=== PATIENT | male | born 1955 | race Caucasian/White ===

== ENCOUNTER 2021-01-27 12:44 | Outpatient (REF) | payer MEDICARE, SELFPAY ==
[2021-01-27 13:08] LABS: MANUAL DIFF FLAG NO
[2021-01-27 13:18] LABS: Basophils Percent Auto 0.6 % (0-2); Eosinophils Absolute Auto 0.5 X10*3/uL (0.0-0.4); Eosinophils Percent Auto 7.7 % (0-4); Hematocrit 45.9 % (42-52); Imm Gran Abs Auto 0.03 X10*3/uL (0.00-0.03); Imm Gran Pct Auto 0.4 % (0.0-0.4); Lymphocytes Absolute Auto 2.1 X10*3/uL (1.2-4.9); Mean Corpuscular HGB Conc 32.7 g/dl (31.0-36.0); Mean Corpuscular Hemoglobin 28.8 pg (27.0-33.0); Mean Corpuscular Volume 88.3 fL (80-98); Mean Platelet Volume 10.2 fL (9.4-12.4); Monocytes Absolute Auto 0.3 X10*3/uL (0.1-1.2); Monocytes Percent Auto 4.2 % (2-11); Neutrophils Absolute Auto 3.9 X10*3/uL (2.0-8.3); Neutrophils Percent Auto 57.1 % (45-73); Platelet Count 256 X10*3/uL (160-400); Red Cell Distribution Width 12.3 % (11.0-16.0); White Blood Count 6.9 X10*3/uL (4.8-10.8)
[2021-01-27 13:29] LABS: Estimated Average Glucose 137 mg/dL; Hemoglobin A1c % 6.4 %
[2021-01-27 13:39] LABS: Alanine Aminotransferase 20 U/L (0-40); Albumin Level 4.4 g/dL (3.5-5.0); Alkaline Phosphatase 89 U/L (39-117); Anion Gap 10 (12-20); Aspartate Amino Transferase 18 U/L (5-37); Bilirubin Total 0.7 mg/dL (0.0-1.0); Blood Urea Nitrogen 14 mg/dL (9-16); Calcium 9.5 mg/dL (8.4-10.2); Carbon Dioxide 30 mmol/L (22-29); Chloride 102 mmol/L (96-108); Cholesterol 172 mg/dL; Estimated Glomerular Filt Rate > 60; Glucose Fasting 215 mg/dL (60-99); HDL Cholesterol 38 mg/dL; LDL Cholesterol Calculated 91 mg/dl; Sodium 137 mmol/L (135-145); Total Protein 7.4 g/dL (6.5-8.0); Triglycerides 217 mg/dL
[2021-01-27 13:52] LABS: TSH reflex Free T4 0.69 uIU/mL (0.32-4.0)
[2021-01-27 14:13] LABS: Glucose Urine UA NEG (NEG); Leukocyte Esterase Urine NEG (NEG); Nitrite Urine NEG (NEG); Urine Blood NEG (NEG); Urine Ketones NEG (NEG); Urine Protein NEG (NEG-TRACE)
[2021-01-27 14:26] LABS: Appearance Urine CLEAR; Color Urine YELLOW
[2021-01-27 14:43] LABS: Creatinine Urine 58.32 mg/dL; Microalbumin Urine < 5.0 mg/L
== END 2021-01-27 12:45 | disposition home or self-care (01) ==
LOC: HO.LAB 12:44
PROVIDERS: PCP Internal Medicine; Visit Provider Internal Medicine
DX: E11.9 Type 2 diabetes mellitus without complications (principal); E78.00 Pure hypercholesterolemia, unspecified; I10 Essential (primary) hypertension; E66.3 Overweight
CPT/HCPCS: 36415; 80053; 80061; 81003; 82043; 83036; 84443; 85025

== ENCOUNTER 2021-12-14 07:17 | Outpatient (REF) | payer MEDICARE, SELFPAY ==
--- NOTE | ~2021-12-14 | XR_ITS ---
EXAMINATION: XR KNEE, RIGHT XR KNEE, STANDING, RIGHT AND LEFT CLINICAL INFORMATION: Pain. COMPARISON: None TECHNIQUE: AP standing view of both knees and sunrise and lateral views of the right knee. FINDINGS: There is moderate narrowing of the right medial joint space compartment with mild spurring. The medial and lateral joint space compartments of the left knee are maintained. There is spurring about the patellofemoral joint of the right knee. No right knee effusion is appreciated. There does appear to be some narrowing of the lateral patellar facet. No acute fracture or dislocation evident. XR/XR knee RT 2V IMPRESSION: Right knee degenerative joint disease involving the patellofemoral joint and medial joint space compartments.
--- NOTE | ~2021-12-14 | XR_ITS ---
EXAMINATION: XR KNEE, RIGHT XR KNEE, STANDING, RIGHT AND LEFT CLINICAL INFORMATION: Pain. COMPARISON: None TECHNIQUE: AP standing view of both knees and sunrise and lateral views of the right knee. FINDINGS: There is moderate narrowing of the right medial joint space compartment with mild spurring. The medial and lateral joint space compartments of the left knee are maintained. There is spurring about the patellofemoral joint of the right knee. No right knee effusion is appreciated. There does appear to be some narrowing of the lateral patellar facet. No acute fracture or dislocation evident. XR/XR knee standing BI IMPRESSION: Right knee degenerative joint disease involving the patellofemoral joint and medial joint space compartments.
== END 2021-12-14 07:18 | disposition home or self-care (01) ==
LOC: HO.HOSX 07:17
PROVIDERS: Visit Provider Physician Assistant
DX: M25.561 Pain in right knee (principal); M25.562 Pain in left knee; M71.21 Synovial cyst of popliteal space [Baker], right knee; D17.9 Benign lipomatous neoplasm, unspecified; I10 Essential (primary) hypertension; E11.9 Type 2 diabetes mellitus without complications; E78.00 Pure hypercholesterolemia, unspecified; E66.3 Overweight; Z68.29 Body mass index [BMI] 29.0-29.9, adult; Z87.891 Personal history of nicotine dependence
CPT/HCPCS: 73560; 73565; 99202

== ENCOUNTER 2021-12-21 07:22 | Outpatient (REF) | payer MEDICARE, SELFPAY ==
--- NOTE | ~2021-12-21 | MR_ITS ---
EXAMINATION: MR KNEE WITHOUT CONTRAST, RIGHT CLINICAL INFORMATION: Right knee pain. COMPARISON: Radiographs 12/14/2021 TECHNIQUE: MRI of the knee without contrast was performed using routine sequences on a high-field scanner. FINDINGS: MENISCI: Medial Meniscus: Ill-defined undersurface tearing of the posterior horn extending to the meniscal body where a portion of the meniscal undersurface is displaced into the meniscotibial recess. Lateral Meniscus: Intact. LIGAMENTS: Cruciate: Intact. Collateral: Intact. EXTENSOR MECHANISM: Intact. ARTICULAR CARTILAGE/BONE: Patellofemoral Compartment: Cartilage thinning and surface irregularity of the medial patellar facet and throughout the trochlea with foci of subchondral marrow edema laterally. Medial Compartment: Mild cartilage thinning and surface irregularity throughout the weightbearing aspect. Lateral Compartment: Mild cartilage thinning at the posterior-most aspect of the femoral condyle and reactive changes deep to the lateral gastrocnemius origin. JOINT FLUID AND BURSAE: Small joint effusion and Narvaez's cyst. MR/MR knee RT wo con IMPRESSION: Irregular undersurface tearing of the posterior horn of the medial meniscus. This extends to the meniscal body where a portion of the meniscal undersurface is displaced into the meniscotibial recess. Moderate patellofemoral and mild medial/lateral compartment osteoarthritis. Small joint effusion and Narvaez's cyst.
[2021-12-21 08:45] LABS: MANUAL DIFF FLAG NO
[2021-12-21 09:28] LABS: Basophils Percent Auto 0.5 % (0-2); Eosinophils Absolute Auto 0.6 X10*3/uL (0.0-0.4); Eosinophils Percent Auto 7.9 % (0-4); Hematocrit 48.4 % (42.0-52.0); Hemoglobin 15.4 g/dl (14.0-18.0); Imm Gran Abs Auto 0.05 X10*3/uL (0.00-0.03); Imm Gran Pct Auto 0.6 % (0.0-0.4); Lymphocytes Absolute Auto 2.6 X10*3/uL (1.2-4.9); Lymphocytes Percent Auto 33.2 % (20-40); Mean Corpuscular HGB Conc 31.8 g/dl (31.0-36.0); Mean Corpuscular Hemoglobin 28.1 pg (27.0-33.0); Mean Corpuscular Volume 88.3 fL (80.0-98.0); Mean Platelet Volume 10.5 fL (9.4-12.4); Monocytes Absolute Auto 0.5 X10*3/uL (0.1-1.2); Monocytes Percent Auto 6.9 % (2-11); Neutrophils Percent Auto 50.9 % (45-73); Platelet Count 265 X10*3/uL (160-400); Red Blood Count 5.48 X10*6/uL (4.60-5.80); Red Cell Distribution Width 12.3 % (11.0-16.0); White Blood Count 7.8 X10*3/uL (4.8-10.8)
[2021-12-21 10:11] LABS: Alanine Aminotransferase 24 U/L (0-40); Albumin Level 4.3 g/dL (3.5-5.0); Alkaline Phosphatase 96 U/L (39-117); Anion Gap 11 (12-20); Aspartate Amino Transferase 20 U/L (5-37); Bilirubin Total 0.8 mg/dL (0.0-1.0); Blood Urea Nitrogen 17 mg/dL (9-16); Calcium 10.2 mg/dL (8.4-10.2); Carbon Dioxide 30 mmol/L (22-29); Chloride 104 mmol/L (96-108); Cholesterol 198 mg/dL; Estimated Glomerular Filt Rate > 60; Glucose Fasting 139 mg/dL (60-99); HDL Cholesterol 35 mg/dL; LDL Cholesterol Calculated 133 mg/dl; Potassium 5.4 mmol/L (3.3-5.1); Sodium 140 mmol/L (135-145); Total Protein 7.8 g/dL (6.5-8.0); Triglycerides 153 mg/dL
[2021-12-21 10:21] LABS: Prostate Specific Antigen Scr 3.93 ng/mL (<0.05-4.0); TSH reflex Free T4 1.29 uIU/mL (0.32-4.0); Vitamin D 25-OH Total 20.8 ng/mL (>30)
== END 2021-12-21 07:23 | disposition home or self-care (01) ==
LOC: HO.MRI 07:22
PROVIDERS: PCP Internal Medicine; Visit Provider Physician Assistant
DX: Z00.00 Encounter for general adult medical examination without abnormal findings (principal); Z12.5 Encounter for screening for malignant neoplasm of prostate; M17.11 Unilateral primary osteoarthritis, right knee; D17.9 Benign lipomatous neoplasm, unspecified; E78.00 Pure hypercholesterolemia, unspecified; I10 Essential (primary) hypertension; E55.9 Vitamin D deficiency, unspecified
CPT/HCPCS: 36415; 73721; 80053; 80061; 82306; 84153; 84443; 85025

== ENCOUNTER 2021-12-22 11:27 | Outpatient (REF) | payer MEDICARE, SELFPAY ==
[2021-12-22 12:20] LABS: Appearance Urine CLEAR; Color Urine YELLOW; Glucose Urine UA NEG (NEG); Leukocyte Esterase Urine NEG (NEG); Nitrite Urine NEG (NEG); Specific Gravity - Urine <= 1.005 (1.005-1.025); Urine Blood NEG (NEG); Urine Ketones NEG (NEG); Urine Protein NEG (NEG-TRACE)
[2021-12-22 13:08] LABS: Creatinine Urine 10.33 mg/dL; Microalbumin Urine < 5.0 mg/L
== END 2021-12-22 11:28 | disposition home or self-care (01) ==
LOC: HO.LAB 11:27
PROVIDERS: PCP Internal Medicine; Visit Provider Internal Medicine
DX: Z00.00 Encounter for general adult medical examination without abnormal findings (principal); I10 Essential (primary) hypertension; E11.9 Type 2 diabetes mellitus without complications
CPT/HCPCS: 81003; 82043

== ENCOUNTER → 2022-01-23 09:53 | Outpatient (BNVA) | payer MEDICARE, SELFPAY | PROVIDERS: PCP Internal Medicine; Visit Provider Orthopaedic Surgery | DX: S83.241A Other tear of medial meniscus, current injury, right knee, initial encounter (principal); I80.291 Phlebitis and thrombophlebitis of other deep vessels of right lower extremity | CPT/HCPCS: 99202 ==

== ENCOUNTER → 2022-02-09 13:51 | Outpatient (BNVA) | payer MEDICARE, SELFPAY | PROVIDERS: PCP Internal Medicine; Visit Provider Physician Assistant | DX: Z01.818 Encounter for other preprocedural examination (principal) | CPT/HCPCS: 99202 ==

== ENCOUNTER 2022-02-20 09:03 | Emergency (ER) | payer OTHER, SELFPAY ==
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
[2022-02-20 10:28] VITALS: BP 135/76; PULSE 77; RESP 18; TEMP 36.1; O2SAT 98; BMI 28.1
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
== END 2022-02-20 14:53 | disposition home or self-care (01) ==
PROVIDERS: Emergency Provider Emergency Medicine; PCP Internal Medicine
DX: S76.012A Strain of muscle, fascia and tendon of left hip, initial encounter (principal); V43.52XA Car driver injured in collision with other type car in traffic accident, initial encounter; Y93.9 Activity, unspecified; Y92.410 Unspecified street and highway as the place of occurrence of the external cause; Y99.9 Unspecified external cause status; Z79.899 Other long term (current) drug therapy
CPT/HCPCS: 73502; 99283

== ENCOUNTER 2022-06-13 09:13 | Day surgery (SDC) | payer MEDICARE, SELFPAY ==
[2022-06-08 15:42] VITALS: BMI 28.6
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
[2022-06-13 09:39] VITALS: BP 138/74; PULSE 61; RESP 16; TEMP 36.4; O2SAT 99; BMI 25.8
[2022-06-13] MEDS: Lactated Ringers 1,000 ML 100 ML IVCONT (09:54)
--- NOTE | 2022-06-13 09:58 | MHC.SHP ---
Pre-Procedural Eval Section A Date of Service: 06/13/22 Section B Chief Complaint: screening Details of Present Illness: father with colon cancer Relevant Family History (Specify if Yes): Yes Relevant Social History: None Present Medications: see Short Stay Collaborative assessment Medical History: Significant History (Benign essential hypertension Congenital absence of left testicle Diabetes mellitus Overweight (BMI 25.0-29.9) Pure hypercholesterolemia) History of Previous Operations: Relevant previous surgery/procedure and date(s) (rotator cuff surgery) Allergies: Allergies Allergy/AdvReac Type Severity Reaction Status Date / Time No Known Allergies Allergy Verified 04/04/22 14:34 Review of Systems Sugical H&P ROS: Negative: Constitution, Cardiovascular, Respiratory, Neurological, Psychiatric, Hem-Onc, Allergic/Immunologic, Gastrointestinal, Genitourinary, Musculoskeletal, Integumentary, Endocrine and Eyes/Ears/Nose/Throat Exam Surgical H&P Exam: Normal: HEENT, Normal: Heart, Normal: Lungs, Normal: Extremities, Normal: Abdomen, Normal: Skin and Normal: Neurological Plan Diagnosis/Plan: Unchanged I have reviewed the history and physical and performed a pertinent physical examination on my patient. No changes have occurred unless specified.
[2022-06-13 10:02] LABS: Glucose, Whole Blood 127 mg/dL (60-115)
--- NOTE | 2022-06-13 11:03 | P.OP_ITS ---
Operative Note Operative Note Date of Service: 06/13/22 Narrative: Operative Information Procedure Description: Colonoscopy Indication: screening Anesthesia: MAC COLONOSCOPY Instrument: Olympus variable stiffness pediatric scope 190L Colonoscopy Monitoring: Vital signs and clinical assessment, continuous EKG monitoring, Pulse oximetry, Carbon Dioxide monitoring and blood pressure monitoring were done throughout the procedure. Colon withdrawal time was 9 minutes. Procedure: The patient was placed in the left lateral decubitis position and pre-procedure medications were administered. After a digital rectal examination of the ano-rectum, the video colonoscope was inserted into the rectum and advanced through the colon to the cecum/TI. The colonoscope was slowly withdrawn in a retrograde panoramic fashion and the colon mucosa was carefully examined including a retroflexed view of the rectum. Findings and interventions are described below. Procedure Difficulty: easy Findings: Terminal Ileum-normal Cecum: x1 sessile polyp type lesion 5-6 mm removed with cold forceps Ascending Colon: normal Transverse Colon -normal Descending Colon:normal Sigmoid Colon: normal Rectum: Retroflexion with medium sized internal hemorrhoids, grade I Anorectum - normal Colon preparation: [place] Bowel Preparation Scale Right colon; 2 Transverse colon: 3 Left colon; 3 (0 = Unprepared colon segment with mucosa not seen due to solid stool that cannot be cleared. 1 = Portion of mucosa of the colon segment seen, but other areas of the colon segment not well seen due to staining, residual stool and/or opaque liquid. 2 = Minor amount of residual staining, small fragments of stool and/or opaque liquid, but mucosa of colon segment seen well. 3 = Entire mucosa of colon segment seen well with no residual staining, small fragments of stool or opaque liquid) Impression and Post Procedure Diagnosis: internal hemorrhoids polyp Plan: High fiber diet leaflet Avoid straining at stool, epsom salts and sitz bath, anusol supps or cream Repeat Colonoscopy in 5 years due to FH of CRC or earlier if clinically indicated Above findings were reviewed with the patient and relevant handouts were provided if indicated.
[2022-06-13 11:30] VITALS: BP 126/81; PULSE 71; RESP 16; TEMP 36.4; O2SAT 96
[2022-06-13 11:46] VITALS: BP 135/75; PULSE 66; RESP 16; TEMP 36.4; O2SAT 97
== END 2022-06-13 12:08 | disposition home or self-care (01) ==
PROVIDERS: PCP Internal Medicine; Visit Provider Internal Medicine Gastroenterology
PROC: 0DJD8ZZ Inspection of Lower Intestinal Tract, Via Natural or Artificial Opening Endoscopic (ICD-10-PCS; CPT 45378; principal; 2022-06-13 10:50)
DX: Z12.11 Encounter for screening for malignant neoplasm of colon (principal); K63.5 Polyp of colon; K64.0 First degree hemorrhoids; I10 Essential (primary) hypertension; E78.00 Pure hypercholesterolemia, unspecified; E11.9 Type 2 diabetes mellitus without complications; Z79.84 Long term (current) use of oral hypoglycemic drugs; Z79.899 Other long term (current) drug therapy; Z87.891 Personal history of nicotine dependence; E66.3 Overweight; Z68.28 Body mass index [BMI] 28.0-28.9, adult
CPT/HCPCS: 45380; 82947; 88305

== ENCOUNTER 2022-06-14 09:36 | Outpatient (REF) | payer MEDICARE, SELFPAY ==
[2022-06-14 10:28] LABS: Appearance Urine Clear; Color Urine Yellow; Glucose Urine UA Negative (Negative); Leukocyte Esterase Urine Negative (Negative); Nitrite Urine Negative (Negative); PH 5.5 (5.0-9.0); Urine Blood Negative (Negative); Urine Ketones Negative (Negative); Urine Protein Negative (Neg-Trace)
[2022-06-14 11:00] LABS: Creatinine Urine 45.39 mg/dL; Microalbumin Urine < 5.0 mg/L
[2022-06-14 11:01] LABS: Alanine Aminotransferase 18 U/L (0-40); Albumin Level 4.1 g/dL (3.5-5.0); Alkaline Phosphatase 90 U/L (39-117); Anion Gap 14 (12-20); Aspartate Amino Transferase 16 U/L (5-37); Bilirubin Total 0.5 mg/dL (0.0-1.0); Blood Urea Nitrogen 13 mg/dL (9-16); Calcium 9.3 mg/dL (8.4-10.2); Carbon Dioxide 27 mmol/L (22-29); Chloride 102 mmol/L (96-108); Cholesterol 180 mg/dL; Estimated Glomerular Filt Rate > 60; Glucose Fasting 189 mg/dL (60-99); HDL Cholesterol 36 mg/dL; LDL Cholesterol Calculated 124 mg/dl; Potassium 4.6 mmol/L (3.3-5.1); Sodium 138 mmol/L (135-145); Triglycerides 101 mg/dL
[2022-06-14 11:22] LABS: Estimated Average Glucose 140 mg/dL; Hemoglobin A1c % 6.5 %
== END 2022-06-14 09:37 | disposition home or self-care (01) ==
LOC: HO.LAB 09:36
PROVIDERS: PCP Internal Medicine; Visit Provider Internal Medicine
DX: I10 Essential (primary) hypertension (principal); E11.9 Type 2 diabetes mellitus without complications; E78.00 Pure hypercholesterolemia, unspecified
CPT/HCPCS: 36415; 80053; 80061; 81003; 82043; 83036

== ENCOUNTER 2022-06-29 09:13 | Outpatient (REF) | payer MEDICARE, SELFPAY ==
--- NOTE | ~2022-06-29 | XR_ITS ---
EXAMINATION: XR KNEE, LEFT CLINICAL INFORMATION: Pain COMPARISON: Previous x-ray December 2021 TECHNIQUE: 3 views of the left knee. FINDINGS: Bone alignment is normal. No fracture or dislocation. Normal femoral tibial joints. Small osteophytes at the patellofemoral joint. No joint effusion. XR/XR knee LT 3V IMPRESSION: Mild degenerative changes at the patellofemoral joint.
== END 2022-06-29 09:14 | disposition home or self-care (01) ==
LOC: HO.XRAY 09:13
PROVIDERS: PCP Internal Medicine; Visit Provider Internal Medicine
DX: M25.562 Pain in left knee (principal); K64.9 Unspecified hemorrhoids; Z80.0 Family history of malignant neoplasm of digestive organs
CPT/HCPCS: 73562; 99212

== ENCOUNTER 2022-11-29 11:23 | Outpatient (REF) | payer MEDICARE, SELFPAY ==
[2022-11-29 12:06] LABS: Influenza A PCR NEGATIVE (Negative); Influenza B PCR NEGATIVE (Negative); Resp Syncy Virus RNA Qual PCR NEGATIVE (Negative); SARS COV2 PCR INHOUSE NEGATIVE (Negative)
== END 2022-11-29 11:24 | disposition home or self-care (01) ==
LOC: HO.LNP 11:23
PROVIDERS: Visit Provider Nurse Practitioner Family
DX: R09.89 Other specified symptoms and signs involving the circulatory and respiratory systems (principal); Z20.822 Contact with and (suspected) exposure to COVID-19
CPT/HCPCS: 0241U

== ENCOUNTER 2023-04-05 10:14 | Outpatient (AMB) | payer MEDICARE, SELFPAY ==
[2023-04-05 10:16] VITALS: BP 138/60; PULSE 57; O2SAT 99; BMI 27.1
--- NOTE | 2023-04-05 10:16 | A.OFFPC_ITS ---
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 Required: No Accompanied by: Self / Same As Patient Allergies No Known Allergies Allergy (Verified 04/05/23 10:58) Medication List - Last Reconciled 04/05/23 by John Dumont MD atorvastatin 20 mg PO DAILY 90 days bisacodyl (Dulcolax (bisacodyl)) 10 mg (2 x 5 mg) PO ONCE 1 day blood sugar diagnostic (OneTouch Ultra Test strips) USE TO CHECK BLOOD SUGAR THREE TIMES DAILY lancets As directed lancets ONE TOUCH ULTRA TEST STRIPS - use as directed - Dx: E11.9 -- Diabetes lisinopril 10 mg PO DAILY 90 days metformin ER 500 mg PO DAILY 90 days Tobacco use date assessed: 04/05/23 Fall risk assessment: 1 Fall in past year Last assessed Fall Risk: 04/05/23 Dental Screening Dental Screen Date: 04/05/23 Did you have a dental visit in the last 12 months?: Yes Did you have a dental problem in the last 6 months where you did not have access to dental care?: No Was dental information given to patient?: Patient has dentist [facility] HPI Details Patient comes in today for his annual physical examination States that he feels okay He denies any headaches or dizziness Denies any chest pains, no SOB No nausea/vomiting, no abdominal pain No change in bowel habits noted Denies any acute urinary symptoms Needs his glucometer test strips Rx refilled He is currently up-to-date with his colon cancer screening and is not due for repeat until 2026 He will also need to update his tetanus booster today - last received Tdap in 12/2012 [facility] Medical History Benign essential hypertension 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 Diabetes mellitus Overweight (BMI 25.0-29.9) Pure hypercholesterolemia Surgical History History of colonoscopy (~06/13/22) Hx of rotator cuff surgery Family History Father Prostate cancer Colon cancer Mother Alzheimer's dementia Social History Housing: House Alcohol intake: current Alcohol intake frequency: a few times a week Alcohol type: beer Patient Tobacco Use Status: Former Tobacco user Tobacco use type: Cigarette e-Cigarette/Vaping Use: Never Used Second Hand Smoke Exposure: Yes service: Yes Current occupational status: retired Cognitive needs: No Hearing needs: Yes Vision needs: Yes Questionnaire PHQ-9 Over the last 2 weeks, how often have you been bothered by any of the following problems? 1. Little interest or pleasure in doing things: not at all 2. Feeling down, depressed, or hopeless: not at all 3. Trouble falling or staying asleep, or sleeping too much: not at all 4. Feeling tired or having little energy: not at all 5. Poor appetite or overeating: not at all 6. Feeling bad about yourself - or that you are a failure or have let yourself or your family down: not at all 7. Trouble concentrating on things, such as reading the newspaper or watching television: not at all 8. Moving or speaking so slowly that other people could have noticed. Or the opposite - being so fidgety or restless that you have been moving around a lot more than usual: not at all 9. Thoughts that you would be better off or of hurting yourself in some way: not at all Total score: 0 Depression Screening Interpretation: Negative [id number] - PHQ-9 Billing: Yes Source: Developed by Drs. Tobin Diaz, Carleen Burton, Rock Toro and colleagues, with an educational blas from [employer]. Thrive Questionnaire Date Thrive assessed: 04/05/23 I am a: Patient What is your living situation today?: I have a steady place to live Within the past 12 months, did the food you bought not last and you didn't have the money to get more?: Never true Within the past 12 months, did you worry whether your food would run out before you got money to buy more?: Never true Do you have trouble paying for medicines?: No Do you have trouble getting transportation to medical appointments?: No Do you have trouble paying your heating and electricity bill?: No Do you have trouble taking care of your child, family member or friend?: No Do you have trouble with day-to-day activities such as bathing, preparing meals, shopping, managing finances, etc.?: No Are you currently unemployed and looking for a job?: No Are you interested in more education?: No Please select the resources that you would like help with: None Currently or been in a relationship where the following occur: no concerns reported AUDIT C Alcohol Use Questionnaire (AUDIT-C) 1. How often do you have a drink containing alcohol?: 2-3 times a week 2. How many drinks containing alcohol do you have on a typical day when you are drinking?: 1 or 2 3. How often do you have six or more drinks on one occasion?: Never Total Score: 3 Score Reviewed/Action Taken: Yes STACY-7 AMB Questionnaire STACY-7 Date STACY - 7 assessed: 04/05/23 Feeling nervous, anxious, or on edge: 0 = Not at all Not being able to stop or control worryin = Not at all Worrying too much about different things: 0 = Not at all Trouble relaxin = Not at all Being so restless that it is hard to sit still: 0 = Not at all Becoming easily annoyed or irritable: 0 = Not at all Feeling afraid as if something awful might happen: 0 = Not at all Total STACY-7 score (0-4 normal; 5-9 mild; 10-14 moderate; 15-21 severe): 0 Source: Developed by Drs. Tobin Diaz, Carleen Burton, Rock Toro and colleagues, with an educational blas from [employer]. Review of Systems Const Denies chills, Denies difficulty sleeping, Denies fatigue, Denies fever(s), Denies headache(s), Denies malaise and Denies weakness Eyes Denies blurry vision, Denies change in vision, Denies irritation and Denies itchy eyes ENT Denies dysphagia, Denies dizziness, Denies otalgia, Denies headache(s), Denies nasal congestion, Denies neck pain, Denies odynophagia and Denies sore throat Card Denies chest pain, Denies rapid heart rate, Denies irregular heart rhythm, Denies palpitations and Denies dyspnea Resp Denies chest congestion, Denies cough, Denies dyspnea and Denies wheezing GI Denies abdominal pain, Denies bloating, Denies constipation, Denies dysphagia, Denies heartburn, Denies diarrhea, Denies nausea, Denies odynophagia and Denies vomiting Denies hematuria, Denies difficulty urinating, Denies dysuria, Denies urinary frequency and Denies urinary urgency Musc Denies back pain, Denies arthralgias, Denies joint swelling, Denies muscle weakness and Denies neck pain Skin/Breast Denies change in pigmentation, Denies lesions, Denies rash and Denies unusual bruising Neuro Denies dizziness, Denies headache(s), Denies paresthesias and Denies weakness Endo Denies fatigue and Denies palpitations Aller/Immun Denies itchy eyes and Denies wheezing Physical exam (Primary Care) Vital Signs: Last Vital Signs Pulse 57 04/05/23 10:16 BP 138/60 04/05/23 10:16 Pulse Ox 99 04/05/23 10:16 Oxygen Delivery Method Room Air 04/05/23 10:16 BMI result Body Mass Index 27.1 Tobacco/Smoking Status: Tobacco use Status Tobacco use date assessed 04/05/23 04/05/23 10:23 Patient Tobacco Use Status Former Tobacco user 04/05/23 10:23 Tobacco use type Cigarette 04/05/23 10:23 e-Cigarette/Vaping Use Never Used 04/05/23 10:23 PHQ-9: PHQ-9 Score PHQ-9: Total score 0 04/05/23 11:03 Depression Screening Interpretation: Negative Thrive Assessment: Date of Thrive Assessment Date Thrive assessed 04/05/23 04/05/23 10:23 Currently or been in a relationship where the following occur: no concerns reported Const General: no acute distress, alert and awake Orientation/consciousness: patient oriented x3 HENMT Head: Yes normocephalic and Yes atraumatic Ears: external ears normal, TM's normal bilaterally and EAC's normal General nose exam: No nasal discharge present Face and sinus: Yes normal facial exam and Yes sinuses nontender Teeth and gingiva: dentition normal Throat: Yes posterior oropharynx normal and Yes tonsils normal (no TP congestion) Eyes Eyelids: Yes eyelids normal Conjunctivae: conjunctivae normal Pupils: Equal, round and reactive pupils present EOM: EOMs intact bilaterally Neck Neck: Yes no lymphadenopathy and Yes supple Thyroid: Thyroid normal Resp Auscultation: clear to auscultation bilaterally, no rales and no wheezes Cardio Rate: regular rate Rhythm: regular rhythm Heart sounds: no murmurs GI Palpation (GI): Soft to palpation, nontender and No hepatosplenomegaly present Auscultation: normal bowel sounds General: Yes no CVA tenderness Back/Spine/Pelvis Back: no CVA tenderness Thoracic/Lumbar Spine: thoracic and lumbar spine normal to inspection Skin Lesions: no lesions Rashes: no rashes Neuro General: patient oriented x3, moves all extremities, no focal motor deficits and CN's II-XI intact bilaterally Cranial nerves: Yes Equal, round and reactive pupils present Cognition (Neuro): normal cognition Gait exam (Neuro): Normal gait present Extrem General: Yes no clubbing, cyanosis or edema Immunizations tetanus-diphtheria toxoids-Td Performing Provider: John Dumont MD Administered by: Sabi Callaway RN on 04/05/23 11:38 Dose Route Admin Location Lot Number Expiration Date NDC Tool Honing Machine Set Up Operator 0.5 mL IM Left Deltoid [id number] 01/17/24 [id number] [employer] VIS Given Date VIS Provided VIS Publication Date 04/05/23 Single Vaccine 21 Eligibility Eligibility Date Funding Source Not [facility] Eligible 04/05/23 State funds Assessment and Plan Assessment & Plan (1) Annual physical exam: Code(s): Z00.00 - Encounter for general adult medical examination without abnormal findings Plan: Check labs He is up-to-date with his screening colonoscopy (done on 06/13/2022); is due for repeat colonoscopy in 2026 He will get his tetanus booster (Td) updated today and is reminded to check with his local pharmacist about getting his shingles vaccine (Shingrix), RSV vaccine, updated COVID booster and also get his high dose flu vaccine beginning sometime next month (2) Benign essential hypertension: Code(s): I10 - Essential (primary) hypertension Plan: Reinforced low sodium diet - goal is systolic BP of 120 mm or less Continue Lisinopril 10 mg QD (3) Diabetes mellitus: Code(s): E11.9 - Type 2 diabetes mellitus without complications Qualifiers: Diabetes mellitus type: type 2 Diabetes mellitus terminal clerk insulin use: without fpc use Diabetes mellitus complication status: without complication Qualified Code(s): E11.9 - Type 2 diabetes mellitus without complications Plan: Will recheck his FBS and HgbA1c RACH for follow up HgbA1c was at 6.5% on his labs done back in June 2022 - goal is at least <7.0% Reinforced diabetic diet Continue Metformin ER 500 mg QD (4) Pure hypercholesterolemia: Code(s): E78.00 - Pure hypercholesterolemia, unspecified Plan: Will recheck his cholesterol levels RACH for follow up Reinforced low cholesterol diet Continue Atorvastatin 20 mg QD Will recheck his labs again in 6 months for follow up (5) Left knee pain: Code(s): M25.562 - Pain in left knee Qualifiers: Chronicity: unspecified Qualified Code(s): M25.562 - Pain in left knee Plan: Resolved - states that his knees have not been bothering him for the past few months now (6) Constipation: Code(s): K59.00 - Constipation, unspecified Qualifiers: Constipation type: unspecified constipation type Qualified Code(s): K59.00 - Constipation, unspecified Plan: Encouraged again increased oral fluid intake and dietary fiber May continue taking OTC stool softeners as needed (7) Overweight (BMI 25.0-29.9): Code(s): E66.3 - Overweight Plan: Reinforced diet/exercise as tolerated/lose weight Plan Follow up in 6 months Orders: Orders Complete Blood Count Auto Diff Today I10 - Essential (primary) hypertension, Z00.00 - Encounter for general adult medical examination without abnormal findings Comprehensive [place]. Panel Fast Today E78.00 - Pure hypercholesterolemia, unspecified, Z00.00 - Encounter for general adult medical examination without abnormal findings Lipid Panel Today E78.00 - Pure hypercholesterolemia, unspecified, Z00.00 - Encounter for general adult medical examination without abnormal findings TSH reflex Free T4 Today E78.00 - Pure hypercholesterolemia, unspecified, Z00.00 - Encounter for general adult medical examination without abnormal findings Microalbumin, Random (w Creat) Today E11.9 - Type 2 diabetes mellitus without complications, Z00.00 - Encounter for general adult medical examination without abnormal findings Hemoglobin A1c Today E11.9 - Type 2 diabetes mellitus without complications, Z00.00 - Encounter for general adult medical examination without abnormal findings UA CC w/rflx Micro + Cult Today R30.0 - Dysuria, Z00.00 - Encounter for general adult medical examination without abnormal findings Prostate Specific Antigen Today N40.0 - Benign prostatic hyperplasia without lower urinary tract symptoms, Z00.00 - Encounter for general adult medical examination without abnormal findings Vitamin D 25-OH Total Today E55.9 - Vitamin D deficiency, unspecified, Z00.00 - Encounter for general adult medical examination without abnormal findings Comprehensive [place]. Panel Fast 6 Months E78.00 - Pure hypercholesterolemia, unspecified Lipid Panel 6 Months E78.00 - Pure hypercholesterolemia, unspecified Hemoglobin A1c 6 Months E11.9 - Type 2 diabetes mellitus without complications Td State Immunization Today Z23 - Encounter for immunization Medications: Changed From blood sugar diagnostic (OneTouch Ultra Test strips) USE TO CHECK BLOOD SUGAR THREE TIMES DAILY 100 strips 0RF E11.9 - Type 2 diabetes mellitus without complications To blood sugar diagnostic (OneTouch Ultra Test strips) USE TO CHECK BLOOD SUGAR ONCE DAILY 100 strips 12RF E11.9 - Type 2 diabetes mellitus without complications Coding Level of Care Code Est Pt Prev Care >65y(55329) Diagnoses Annual physical exam Z00.00 Benign essential hypertension I10 Diabetes mellitus E11.9 Diabetes mellitus type: type 2 Diabetes mellitus fpc insulin use: without terminal clerk use Diabetes mellitus complication status: without complication Pure hypercholesterolemia E78.00 Left knee pain M25.562 Chronicity: unspecified Constipation K59.00 Constipation type: unspecified constipation type Overweight (BMI 25.0-29.9) E66.3
== END 2023-04-05 11:40 | disposition home or self-care (01) ==
PROVIDERS: PCP Internal Medicine; Visit Provider Internal Medicine
DX: Z00.00 Encounter for general adult medical examination without abnormal findings (principal); I10 Essential (primary) hypertension; E11.9 Type 2 diabetes mellitus without complications; Z23 Encounter for immunization; E78.00 Pure hypercholesterolemia, unspecified; M25.562 Pain in left knee; K59.00 Constipation, unspecified; E66.3 Overweight
CPT/HCPCS: 90471; 90714; 99397

== ENCOUNTER 2023-06-25 09:19 | Outpatient (REF) | payer MEDICARE, SELFPAY ==
[2023-06-25 09:40] LABS: MANUAL DIFF FLAG NO
[2023-06-25 10:22] LABS: Basophils Absolute Auto 0.1 X10*3/uL (0.0-0.2); Basophils Percent Auto 0.6 % (0-2); Eosinophils Absolute Auto 0.5 X10*3/uL (0.0-0.4); Eosinophils Percent Auto 5.8 % (0-4); Hematocrit 46.6 % (42.0-52.0); Hemoglobin 14.7 g/dl (14.0-18.0); Imm Gran Abs Auto 0.05 X10*3/uL (0.00-0.03); Imm Gran Pct Auto 0.6 % (0.0-0.4); Lymphocytes Absolute Auto 2.3 X10*3/uL (1.2-4.9); Lymphocytes Percent Auto 26.1 % (20-40); Mean Corpuscular HGB Conc 31.5 g/dl (31.0-36.0); Mean Corpuscular Hemoglobin 27.9 pg (27.0-33.0); Mean Corpuscular Volume 88.4 fL (80.0-98.0); Mean Platelet Volume 10.1 fL (9.4-12.4); Monocytes Absolute Auto 0.6 X10*3/uL (0.1-1.2); Monocytes Percent Auto 6.9 % (2-11); Neutrophils Absolute Auto 5.3 x10*3/uL (2.0-8.3); Platelet Count 273 X10*3/uL (160-400); Red Blood Count 5.27 X10*6/uL (4.60-5.80); Red Cell Distribution Width 11.9 % (11.0-16.0); White Blood Count 8.8 X10*3/uL (4.8-10.8)
[2023-06-25 10:35] LABS: Estimated Average Glucose 177 mg/dL; Hemoglobin A1c % 7.8 % (<6.0)
[2023-06-25 11:05] LABS: Alanine Aminotransferase 11 U/L (0-40); Albumin Level 4.1 g/dL (3.5-5.0); Alkaline Phosphatase 109 U/L (39-117); Anion Gap 10 (12-20); Aspartate Amino Transferase 13 U/L (5-37); Bilirubin Total 0.5 mg/dL (0.0-1.0); Blood Urea Nitrogen 11 mg/dL (9-16); Calcium 9.6 mg/dL (8.4-10.2); Carbon Dioxide 30 mmol/L (22-29); Chloride 101 mmol/L (96-108); Cholesterol 195 mg/dL (<200); Estimated Glomerular Filt Rate > 60; Glucose Fasting 225 mg/dL (60-99); HDL Cholesterol 31 mg/dL (>40); LDL Cholesterol Calculated 118 mg/dL (<100); Potassium 4.6 mmol/L (3.3-5.1); Sodium 136 mmol/L (135-145); Total Protein 7.7 g/dL (6.5-8.0); Triglycerides 232 mg/dL (<150)
[2023-06-25 11:08] LABS: Prostate Specific Antigen 5.31 ng/mL (<0.05-4.0)
[2023-06-25 11:10] LABS: Creatinine Urine 96.66 mg/dL; Microalbum/Creatinine Ratio Ur 7.2 ug/mg cr (<30)
[2023-06-25 11:11] LABS: TSH reflex Free T4 1.29 uIU/mL (0.32-4.0); Vitamin D 25-OH Total 25.7 ng/mL (>30)
[2023-06-25 11:12] LABS: Appearance Urine Clear; Color Urine Yellow; Glucose Urine UA 250 mg/dL (Negative); Leukocyte Esterase Urine Negative (Negative); Nitrite Urine Negative (Negative); Urine Blood Negative (Negative); Urine Ketones Negative (Negative); Urine Protein Negative (Neg-Trace)
== END 2023-06-25 09:20 | disposition home or self-care (01) ==
LOC: HO.LAB 09:19
PROVIDERS: PCP Internal Medicine; Visit Provider Internal Medicine
DX: Z00.00 Encounter for general adult medical examination without abnormal findings (principal); I10 Essential (primary) hypertension; E78.00 Pure hypercholesterolemia, unspecified; E11.9 Type 2 diabetes mellitus without complications; N40.0 Benign prostatic hyperplasia without lower urinary tract symptoms; E55.9 Vitamin D deficiency, unspecified; R30.0 Dysuria; Z12.5 Encounter for screening for malignant neoplasm of prostate
CPT/HCPCS: 36415; 80053; 80061; 81003; 82043; 82306; 82570; 83036; 84153; 84443; 85025

== ENCOUNTER 2023-08-08 09:11 | Outpatient (AMB) | payer MEDICARE, SELFPAY ==
--- NOTE | 2023-08-08 10:00 | MHC.OFFWIV ---
Intake Vital Signs 08/08/23 10:01 Height 5 ft 7 in BP 118/62 Blood Pressure Location Rt brachial Position Sitting Pulse 62 Pulse Source Pulse Oximeter Temp 98.4 F Temp Source Temporal Artery Scan Pulse Oximetry (%) 98 Oxygen Delivery Method Room Air Intake Visit Reasons: EST/fever/chills/[id number] Intake Note: pt is here for co fever, chills, body aches x2 weeks Patient Tobacco Use Status: Former Tobacco user Allergies No Known Allergies Allergy (Verified 08/08/23 10:18) Medication List - Last Reconciled 08/08/23 by Lay Wilson, MOBILE APPLICATION TESTER- atorvastatin 20 mg PO DAILY 90 days blood sugar diagnostic (OneTouch Ultra Test strips) USE TO CHECK BLOOD SUGAR ONCE DAILY lancets As directed lancets ONE TOUCH ULTRA TEST STRIPS - use as directed - Dx: E11.9 -- Diabetes lisinopril 10 mg PO DAILY 90 days metformin ER 500 mg PO DAILY 90 days Do you need a note to return to daycare/school/sports/work: Yes HPI HPI Comments History of Present Illness Details here today w c/o sinus pain and pressure that developed 4-5 days ago. when lying flat at night, has cough w/ sputum. stated > 2 weeks ago had flu like sx, treated w/ otc meds and nasal sprays. all sx resolved and then the sinus sx and cough returned. denies fever, chills, chest pain. 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 Diabetes mellitus Overweight (BMI 25.0-29.9) Pure hypercholesterolemia Surgical History History of colonoscopy (~06/13/22) Hx of rotator cuff surgery Family History Father Prostate cancer Colon cancer Mother Alzheimer's dementia Social History Housing: House Alcohol intake: current Alcohol intake frequency: a few times a week Alcohol type: beer Patient Tobacco Use Status: Former Tobacco user Tobacco use type: Cigarette e-Cigarette/Vaping Use: Never Used Second Hand Smoke Exposure: Yes service: Yes Current occupational status: retired Cognitive needs: No Hearing needs: Yes Vision needs: Yes Review of Systems Const All systems reviewed & are unremarkable except as noted in HPI and below Physical Exam Vital Signs: Last Vital Signs Temp 98.4 F 08/08/23 10:01 Pulse 62 08/08/23 10:01 BP 118/62 08/08/23 10:01 Pulse Ox 98 08/08/23 10:01 Oxygen Delivery Method Room Air 08/08/23 10:01 Const Other: awake alert nad conjunctiva clear bilat TM intact, clear on L, + mucoid effusion on R Nares w mucoid discharge, turbinates edematous and pale bilat, frontal and max sinus tenderness w palp bilat Pharynx + erythema, no exudate, no ac adenopathy RRR LS CTAB Assessment & Plan Assessment & Plan (1) Acute sinusitis: Code(s): J01.90 - Acute sinusitis, unspecified Qualifiers: Sinusitis location: pansinusitis Recurrence: non-recurrent Qualified Code(s): J01.40 - Acute pansinusitis, unspecified Plan: . Medications: New amoxicillin-pot clavulanate 875-125 mg 1 tab PO BID 7 days 14 tabs 0RF Patient Instructions: take meds w/ food. avoid nasal sprays and decongestants, nasal saline is ok. Coding Level of Care Code Est Pt Level 3 (25900) Diagnoses Acute non-recurrent pansinusitis J01.40 Sinusitis location: pansinusitis Recurrence: non-recurrent
[2023-08-08 10:01] VITALS: BP 118/62; PULSE 62; TEMP 36.9; O2SAT 98
== END 2023-08-08 10:36 | disposition home or self-care (01) ==
PROVIDERS: PCP Internal Medicine; Visit Provider Nurse Practitioner Family
DX: J01.40 Acute pansinusitis, unspecified (principal)
CPT/HCPCS: 99213

== ENCOUNTER 2023-10-01 09:44 | Outpatient (AMB) | payer MEDICARE, SELFPAY ==
[2023-10-01 09:48] VITALS: BP 110/72; PULSE 72; O2SAT 98; BMI 25.5
--- NOTE | 2023-10-01 09:48 | A.OFFPC_ITS ---
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: No Accompanied by: Self / Same As Patient Allergies No Known Allergies Allergy (Verified 10/01/23 10:11) Medication List - Last Reconciled 10/01/23 by John Dumont MD atorvastatin 20 mg PO DAILY 90 days blood sugar diagnostic (OneTouch Ultra Test strips) USE TO CHECK BLOOD SUGAR ONCE DAILY lancets As directed lancets ONE TOUCH ULTRA TEST STRIPS - use as directed - Dx: E11.9 -- Diabetes lisinopril 10 mg PO DAILY 90 days metformin ER 500 mg PO DAILY 90 days Tobacco use date assessed: 10/01/23 Fall risk assessment: No Falls in past year Last assessed Fall Risk: 10/01/23 Dental Screening Dental Screen Date: 10/01/23 Did you have a dental visit in the last 12 months?: Yes Did you have a dental problem in the last 6 months where you did not have access to dental care?: No Was dental information given to patient?: Patient has dentist HPI HTN, hyperlipidemia, DM HPI Details Patient comes in today for his follow up visit States that he feels okay He denies any headaches or dizziness Denies any chest pains, no SOB No nausea/vomiting, no abdominal pain No change in bowel habits noted Relates that he has been experiencing urinary frequency and hesitancy and nocturia as well for a while now - recalls that he has a history of prostate enlargement and had some unrecalled office procedure done by Dr. Hardwick a few years ago (2016 or 2017) Adds that he has been experiencing some legs cramps lately, especially at night Would also like to know how he did on his labs done back in June 2023 [facility] Medical History (Updated 10/01/23 @ 10:57 by John Dumont MD) Benign prostatic hyperplasia with lower urinary tract symptoms Degenerative joint disease of right knee Overweight (BMI 25.0-29.9) Diabetes mellitus Pure hypercholesterolemia Benign essential hypertension Congenital absence of left testicle Surgical History History of colonoscopy (~06/13/22) Hx of rotator cuff surgery Family History Father Prostate cancer Colon cancer Mother Alzheimer's dementia Social History Housing: House Alcohol intake: current Alcohol intake frequency: a few times a week Alcohol type: beer Patient Tobacco Use Status: Former Tobacco user Tobacco use type: Cigarette e-Cigarette/Vaping Use: Never Used Second Hand Smoke Exposure: Yes service: Yes Current occupational status: retired Cognitive needs: No Hearing needs: Yes Vision needs: Yes Questionnaire PHQ-9 Over the last 2 weeks, how often have you been bothered by any of the following problems? 1. Little interest or pleasure in doing things: not at all 2. Feeling down, depressed, or hopeless: not at all 3. Trouble falling or staying asleep, or sleeping too much: not at all 4. Feeling tired or having little energy: not at all 5. Poor appetite or overeating: not at all 6. Feeling bad about yourself - or that you are a failure or have let yourself or your family down: not at all 7. Trouble concentrating on things, such as reading the newspaper or watching television: not at all 8. Moving or speaking so slowly that other people could have noticed. Or the opposite - being so fidgety or restless that you have been moving around a lot more than usual: not at all 9. Thoughts that you would be better off or of hurting yourself in some way: not at all Total score: 0 Depression Screening Interpretation: Negative Depression Screening Done: Yes 12000 - PHQ-9 Billing: Yes Source: Developed by Drs. Tobin Diaz, Carleen Burton, Rock Toro and colleagues, with an educational blas from [employer]. Thrive Questionnaire Date Thrive assessed: 10/01/23 I am a: Patient What is your living situation today?: I have a steady place to live Within the past 12 months, did the food you bought not last and you didn't have the money to get more?: Never true Within the past 12 months, did you worry whether your food would run out before you got money to buy more?: Never true Do you have trouble paying for medicines?: No Do you have trouble getting transportation to medical appointments?: No Do you have trouble paying your heating and electricity bill?: No Do you have trouble taking care of your child, family member or friend?: No Do you have trouble with day-to-day activities such as bathing, preparing meals, shopping, managing finances, etc.?: No Are you currently unemployed and looking for a job?: No Are you interested in more education?: No Please select the resources that you would like help with: None Currently or been in a relationship where the following occur: no concerns reported THRIVE Score: 0 AUDIT C Alcohol Use Questionnaire (AUDIT-C) 1. How often do you have a drink containing alcohol?: 2-3 times a week 2. How many drinks containing alcohol do you have on a typical day when you are drinking?: 1 or 2 3. How often do you have six or more drinks on one occasion?: Never Total Score: 3 Score Reviewed/Action Taken: Yes STACY-7 AMB Questionnaire STACY-7 Date STACY - 7 assessed: 10/01/23 Feeling nervous, anxious, or on edge: 0 = Not at all Not being able to stop or control worryin = Not at all Worrying too much about different things: 0 = Not at all Trouble relaxin = Not at all Being so restless that it is hard to sit still: 0 = Not at all Becoming easily annoyed or irritable: 0 = Not at all Feeling afraid as if something awful might happen: 0 = Not at all Total STACY-7 score (0-4 normal; 5-9 mild; 10-14 moderate; 15-21 severe): 0 Source: Developed by Drs. Toibn Diaz, Carleen Burton, Rock Toro and colleagues, with an educational blas from [employer]. Review of Systems Const Denies chills, Denies fatigue, Denies fever(s), Denies headache(s) and Reports weight loss ENT Denies dysphagia, Denies dizziness, Denies otalgia, Denies headache(s), Denies neck pain, Denies odynophagia and Denies sore throat Card Denies chest pain, Denies rapid heart rate, Denies irregular heart rhythm, Denies palpitations and Denies dyspnea Resp Denies chest congestion, Denies cough, Denies dyspnea and Denies wheezing GI Denies abdominal pain, Denies constipation, Denies dysphagia, Denies heartburn, Denies diarrhea, Denies nausea, Denies odynophagia and Denies vomiting Denies hematuria, Denies dysuria, Reports nocturia, Reports urinary frequency and Reports urinary hesitancy Musc Denies back pain, Denies arthralgias, Reports muscle cramps (in both legs, mostly at night) and Denies neck pain Skin/Breast Denies rash Neuro Denies dizziness, Denies headache(s) and Denies paresthesias Endo Denies fatigue and Denies palpitations Aller/Immun Denies wheezing Physical exam (Primary Care) Vital Signs: Last Vital Signs Pulse 72 10/01/23 09:48 BP 110/72 10/01/23 09:48 Pulse Ox 98 10/01/23 09:48 Oxygen Delivery Method Room Air 10/01/23 09:48 BMI result Body Mass Index 25.5 Tobacco/Smoking Status: Tobacco use Status Tobacco use date assessed 10/01/23 10/01/23 09:50 Patient Tobacco Use Status Former Tobacco user 10/01/23 09:50 Tobacco use type Cigarette 10/01/23 09:50 e-Cigarette/Vaping Use Never Used 10/01/23 09:50 PHQ-9: PHQ-9 Score PHQ-9: Total score 0 10/01/23 10:45 Depression Screening Interpretation: Negative Thrive Assessment: Date of Thrive Assessment Date Thrive assessed 10/01/23 10/01/23 09:50 Currently or been in a relationship where the following occur: no concerns reported Const General: no acute distress and alert HENMT Ears: TM's normal bilaterally and EAC's normal Throat: Yes posterior oropharynx normal and Yes tonsils normal (no TP congestion) Neck Neck: Yes no lymphadenopathy and Yes supple Thyroid: Thyroid normal Resp Auscultation: clear to auscultation bilaterally, no rales and no wheezes Cardio Rate: regular rate Rhythm: regular rhythm Heart sounds: no murmurs GI Palpation (GI): Soft to palpation and nontender Auscultation: normal bowel sounds General: Yes no CVA tenderness Back/Spine/Pelvis Back: no CVA tenderness Thoracic/Lumbar Spine: thoracic and lumbar spine normal to inspection Skin Rashes: no rashes Extrem General: Yes no clubbing, cyanosis or edema Results AMB Hemoglobin A1c AMB Hemoglobin A1c 13.2 % Last Edit by Pricsila Veronica on 10/01/23 10:21 Results Reviewed Results Reviewed: Laboratory Last Values Hgb A1c (Clinic) 13.2 % (4.0-6.0) H 10/01/23 10:11 Laboratory Tests 06/25/23 06/25/23 09:35 09:39 WBC 8.8 Hgb 14.7 Hct 46.6 Plt Count 273 Sodium 136 Potassium 4.6 Creatinine 0.90 Estimated GFR > 60 Fasting Glucose 225 H Hemoglobin A1c % 7.8 H Calcium 9.6 AST 13 ALT 11 Triglycerides 232 H Cholesterol 195 LDL Cholesterol, Calc 118 H HDL Cholesterol 31 L Prostate Specific Ag 5.31 H 25-OH Vitamin D Total 25.7 L TSH 1.29 Ur Specific [place] 1.020 Urine Protein Negative Urine Glucose (UA) 250 H Urine Blood Negative Urine Nitrite Negative Ur Leukocyte Esterase Negative Microalb/Creat Ratio 7.2 Assessment and Plan Assessment & Plan (1) Diabetes mellitus: Code(s): E11.9 - Type 2 diabetes mellitus without complications Qualifiers: Diabetes mellitus complication status: with hyperglycemia Diabetes mellitus group home insulin use: without group home use Diabetes mellitus type: type 2 Qualified Code(s): E11.65 - Type 2 diabetes mellitus with hyperglycemia Plan: In-office HgbA1c done today is at 13.2% (his HgbA1c went up to 7.8% from 6.5% on his labs done back in June 2023) - goal is at least <7.0% Advised that his diabetes is now completely uncontrolled Reinforced diabetic diet - patient states that he drinks a protein shake daily and also eats late at night often and have advised him that he needs to change these now Per request, will refer him for nutrition/dietitian consult Will increase his Metformin ER 500 mg now to 2 tablets (1000 mg) BID and start him additionally on Glimepiride 2 mg QD (2) Benign essential hypertension: Code(s): I10 - Essential (primary) hypertension Plan: Reinforced low sodium diet - goal is systolic BP of 120 mm or less Continue Lisinopril 10 mg QD (3) Pure hypercholesterolemia: Code(s): E78.00 - Pure hypercholesterolemia, unspecified Plan: Results of his labs done back in June 2023 reviewed and discussed with patient Reinforced low cholesterol diet Continue Atorvastatin 20 mg QD Will recheck his labs and fasting lipids in 6 months for follow up (4) Elevated prostate specific antigen (PSA): Code(s): R97.20 - Elevated prostate specific antigen [PSA] Plan: He is advised that his PSA was also elevated on his labs done back in June 2023 and he should see urology again for further evaluation of this - referral to urology done (5) Benign prostatic hyperplasia with lower urinary tract symptoms: Code(s): N40.1 - Benign prostatic hyperplasia with lower urinary tract symptoms Qualifiers: Lower urinary tract symptom detail: weak urinary stream Qualified Code(s): N40.1 - Benign prostatic hyperplasia with lower urinary tract symptoms; R39.12 - Poor urinary stream Plan: (+) Hx of BPH Will refer him to urology for further evaluation and management - used to see Dr. Hardwick (6) Nocturnal leg cramps: Code(s): G47.62 - Sleep related leg cramps Plan: Will start him on Mag Ox 400 mg BID (7) Constipation: Code(s): K59.00 - Constipation, unspecified Qualifiers: Constipation type: unspecified constipation type Qualified Code(s): K59.00 - Constipation, unspecified Plan: Encouraged again increased oral fluid intake and dietary fiber May continue taking OTC stool softeners as needed (8) Overweight (BMI 25.0-29.9): Code(s): E66.3 - Overweight Plan: Reinforced diet/exercise as tolerated/lose weight Plan Follow up in 4 months Orders: Orders Hemoglobin A1c 4 Months E11.9 - Type 2 diabetes mellitus without complications TSH reflex Free T4 4 Months E78.00 - Pure hypercholesterolemia, unspecified AMB Hemoglobin A1c Today Z13.9 - Encounter for screening, unspecified Complete Blood Count Auto Diff 4 Months D64.9 - Anemia, unspecified Comprehensive [place]. Panel Fast 4 Months E78.00 - Pure hypercholesterolemia, unspecified Lipid Panel 4 Months E78.00 - Pure hypercholesterolemia, unspecified UA CC w/rflx Micro + Cult 4 Months R30.0 - Dysuria Microalbumin, Random (w Creat) 4 Months E11.9 - Type 2 diabetes mellitus without complications Vitamin D 25-OH Total 4 Months E55.9 - Vitamin D deficiency, unspecified Magnesium 4 Months E83.42 - Hypomagnesemia Referrals Counter Dish [employer] Nutrition Referral E11.9 - Type 2 diabetes mellitus without complications Urology Referral N40.1 - Benign prostatic hyperplasia with lower urinary tract symptoms, R97.20 - Elevated prostate specific antigen [PSA] Medications: New magnesium oxide 400 mg PO BID 60 tabs 5RF 30 days glimepiride administer with breakfast 2 mg PO QAM 30 tabs 3RF 30 days Changed From metformin ER 500 mg PO DAILY 90 days 90 tabs 1RF E11.9 - Type 2 diabetes mellitus without complications To metformin ER 1,000 mg (2 x 500 mg) PO BID 360 tabs 1RF 90 days E11.9 - Type 2 diabetes mellitus without complications Coding Level of Care Code Est Pt Level 4 (58451) Diagnoses Type 2 diabetes mellitus with hyperglycemia, without long-term current use of insulin E11.65 Diabetes mellitus complication status: with hyperglycemia Diabetes mellitus group home insulin use: without group home use Diabetes mellitus type: type 2 Benign essential hypertension I10 Pure hypercholesterolemia E78.00 Elevated prostate specific antigen (PSA) R97.20 Benign prostatic hyperplasia with weak urinary stream N40.1; R39.12 Lower urinary tract symptom detail: weak urinary stream Nocturnal leg cramps G47.62 Constipation, unspecified constipation type K59.00 Constipation type: unspecified constipation type Overweight (BMI 25.0-29.9) E66.3
== END 2023-10-01 10:46 | disposition home or self-care (01) ==
PROVIDERS: PCP Internal Medicine; Visit Provider Internal Medicine
DX: E11.65 Type 2 diabetes mellitus with hyperglycemia (principal); I10 Essential (primary) hypertension; E78.00 Pure hypercholesterolemia, unspecified; R97.20 Elevated prostate specific antigen [PSA]; N40.1 Benign prostatic hyperplasia with lower urinary tract symptoms; R39.12 Poor urinary stream; G47.62 Sleep related leg cramps; K59.00 Constipation, unspecified; E66.3 Overweight
CPT/HCPCS: 83036; 99214

== ENCOUNTER 2023-10-25 09:52 | Outpatient (AMB) | payer MEDICARE, SELFPAY ==
[2023-10-25 10:21] VITALS: BMI 25.5
--- NOTE | 2023-10-25 10:21 | A.OFFVIS_ITS ---
Intake VS Expanded 10/25/23 10:21 10/29/23 13:52 Height 5 ft 7 in 5 ft 7 in Weight 163 lb 163 lb BMI 25.5 25.5 Intake Visit Reasons: T2DM/CONFIRMED Allergies No Known Allergies Allergy (Verified 10/01/23 10:11) HPI Nutrition Presentation Details Pt presents for MNT for T2DM. The Pt was referred by Dr. Dumont, PCP. [facility]-Hcrhoqz-Dl.Jesseor Equation Height 5 ft 7 in Weight 163 lb Resting Metabolic Rate 1472.68 Calculated Activity Level Mild Activity Calories Needed to Maintain Weight 2023.94 Diagnosis Nutrition problem #1 food nutri know defi As related to (etiology) #1 diagnosis As evidenced by (sign/symptom) #1 abnormal lab values (13.2% on 09/2023) Monitoring/Goals Nutrition problem monitoring level of knowledge/skill Nutrition goal/outcome list 3 CHO foods and list 3 high fiber foods Outcome progress verbalized understanding Learning/Education Readiness to learn good Stages of change preparation Educational materials provided Yes (2200 [place] meal plan , 60-75 g carb following healthy plate method) Most Recent Diabetes Results: Microalb/Creat Ratio 7.2 ug/mg cr (<30) 06/25/23 Cholesterol 195 mg/dL (<200) 06/25/23 HDL Cholesterol 31 mg/dL (>40) L 06/25/23 Triglycerides 232 mg/dL (<150) H 06/25/23 Creatinine 0.90 mg/dL (0.5-1.4) 06/25/23 Blood Urea Nitrogen 11 mg/dL (9-16) 06/25/23 Sodium 136 mmol/L (135-145) 06/25/23 Potassium 4.6 mmol/L (3.3-5.1) 06/25/23 Chloride 101 mmol/L (96-108) 06/25/23 Carbon Dioxide 30 mmol/L (22-29) H 06/25/23 Calcium 9.6 mg/dL (8.4-10.2) 06/25/23 AST 13 U/L (5-37) 06/25/23 ALT 11 U/L (0-40) 06/25/23 Total Protein 7.7 g/dL (6.5-8.0) 06/25/23 Albumin 4.1 g/dL (3.5-5.0) 06/25/23 [facility], [facility] Medical History (Updated 10/01/23 @ 10:57 by John Dumnot MD) Benign prostatic hyperplasia with lower urinary tract symptoms Degenerative joint disease of right knee Overweight (BMI 25.0-29.9) Diabetes mellitus Pure hypercholesterolemia Benign essential hypertension Congenital absence of left testicle Surgical History History of colonoscopy (~06/13/22) Hx of rotator cuff surgery Family History Father Prostate cancer Colon cancer Mother Alzheimer's dementia Social History Housing: House Alcohol intake: current Alcohol intake frequency: a few times a week Alcohol type: beer Patient Tobacco Use Status: Former Tobacco user Tobacco use type: Cigarette e-Cigarette/Vaping Use: Never Used Second Hand Smoke Exposure: Yes service: Yes Current occupational status: retired Cognitive needs: No Hearing needs: Yes Vision needs: Yes Assessment & Plan Assessment & Plan (1) Diabetes mellitus: Code(s): E11.9 - Type 2 diabetes mellitus without complications Qualifiers: Diabetes mellitus complication status: with hyperglycemia Diabetes mellitus 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 Diabetes mellitus type: type 2 Qualified Code(s): E11.65 - Type 2 diabetes mellitus with hyperglycemia Plan: Wt: 74 Kg ( 10/25/23 ) Est kcal needs as per 25 kcal/kg bw: 2200 (40% carb, 30% protein/fat) Est fluid needs as per 25-30 ml/d: 1900 Est prot per day as per 1 g/kg bw: 74 Recommend fiber intake : 8-10 g per day and gradually increase to 25-28 g per day for women and 35-38 g for men or as tolerated Recommend sodium intake per day : less than 2000 mg Educated patient on: ( R = reviewed V = verbalizes understanding N/R = needs review N/A = not applicable * Food sources of carbohydrate, adequate serving sizes and its role in various health conditions: R * Differences between complex carbohydrates a simple carbohydrates, role of fiber in diet: R * Lean protein sources of foods: R * Differences between types of fats and role in diet (mono on saturated fat fatty acids, saturated fatty acids, trans fats): R basic info * Food sources of sodium in salt and healthy modifications for heart health in kidney health: NR * Vitamins and minerals: R V N/R * Healthy plate method concept: R * Physical activity: Benefits a precaution: R * Hypoglycemia protocol (rule of 15): N/R * Dietary prevention of Hyperglycemia: R Patient Instructions: Follow healthy plate method , reducing total carb at meal to 60 -75 g Keep physically active , goal 150 min per week include fish at least tiwce a week reduce pastries/cookies/ high sugar foods Coding Level of Care Code Nutr Indiv Intake (64725) Diagnoses Type 2 diabetes mellitus with hyperglycemia, without long-term current use of insulin E11.65 Diabetes mellitus complication status: with hyperglycemia Diabetes mellitus 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
[2023-10-29 13:52] VITALS: BMI 25.5
== END 2023-10-25 10:55 | disposition home or self-care (01) ==
PROVIDERS: PCP Internal Medicine; Visit Provider Dietitian, Registered
DX: E11.65 Type 2 diabetes mellitus with hyperglycemia (principal)

== ENCOUNTER → 2023-10-25 09:52 | Outpatient (BNVA) | payer MEDICARE, SELFPAY | PROVIDERS: PCP Internal Medicine; Visit Provider Dietitian, Registered | DX: E11.65 Type 2 diabetes mellitus with hyperglycemia (principal); Z71.3 Dietary counseling and surveillance | CPT/HCPCS: 97802 ==

== ENCOUNTER 2023-11-14 14:46 | Outpatient (AMB) | payer MEDICARE, SELFPAY ==
--- NOTE | 2023-11-14 14:47 | MHC.OFFVIS ---
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 Accompanied by: Self / Same As Patient Allergies No Known Allergies Allergy (Verified 11/14/23 15:32) Medication List - Last Reconciled 11/14/23 by TAMMY Baker atorvastatin 20 mg PO DAILY 90 days blood sugar diagnostic (OneTouch Ultra Test strips) USE TO CHECK BLOOD SUGAR ONCE DAILY glimepiride 2 mg PO QAM 30 days lancets As directed lancets ONE TOUCH ULTRA TEST STRIPS - use as directed - Dx: E11.9 -- Diabetes lisinopril 10 mg PO DAILY 90 days magnesium oxide 400 mg PO BID 30 days magnesium oxide 400 mg PO BID metformin ER 1,000 mg (2 x 500 mg) PO BID 90 days HPI HPI Comments History of Present Illness Details Sotero is a pleasant 68-year-old male patient of Dr. Dumont. He has a past medical history of BPH with lower urinary tract symptoms, degenerative joint disease, diabetes, hypercholesteremia, hypertension, and congenital absence of left testicle. He presents to the office today as a new patient for an elevated PSA. In discussion with the patient today reports to be doing and feeling well. Reports previously following up with urologist Dr. Hardwick and undergoing TURP in the past due to urinary retention. He reports having experienced lower urinary tract symptoms previously when he had uncontrolled diabetes however since his diabetes has been controlled he has experienced no urinary issues. When asked he does report a family history of prostate cancer. He reports his dad in his late 50s from prostate cancer. He currently denies any bothersome urinary issues or concerns. 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 Discussed at length potential causes for elevated PSA. ALESSIA offered however deferred. In office urinalysis results reviewed with the patient today. In review of patient's chart PSA 07/05--5.3. PFSH Medical History Benign prostatic hyperplasia with lower urinary tract symptoms Degenerative joint disease of right knee Overweight (BMI 25.0-29.9) Diabetes mellitus Pure hypercholesterolemia Benign essential hypertension Congenital absence of left testicle Surgical History History of colonoscopy (~06/13/22) Hx of rotator cuff surgery Family History Father Prostate cancer Colon cancer Mother Alzheimer's dementia Social History Housing: House Alcohol intake: current Alcohol intake frequency: a few times a week Alcohol type: beer Patient Tobacco Use Status: Former Tobacco user Tobacco use type: Cigarette e-Cigarette/Vaping Use: Never Used Second Hand Smoke Exposure: Yes service: Yes Current occupational status: retired Cognitive needs: No Hearing needs: Yes Vision needs: Yes Review of Systems Const Reports as per HPI Eyes Reports no additional complaints ENT Reports no additional complaints Card Reports as per HPI Resp Reports no additional complaints GI Reports no additional complaints Reports as per HPI Musc Reports as per HPI Neuro Reports no additional complaints Psych Reports no additional complaints Endo Reports as per HPI Zain/Lymph Reports no additional complaints Aller/Immun Reports no additional complaints Physical Exam Const General: cooperative, healthy appearing, comfortable, no acute distress, well developed, alert and awake Orientation/consciousness: patient oriented x3 Limitations: no limitations HEENT Head: Yes normal to inspection, Yes normocephalic and Yes atraumatic Ears: hearing grossly normal bilaterally Eyes General: appearance normal, both eyes and all related structures Neck Neck: Yes normal visual inspection and Yes trachea midline Chest Chest palpation & inspection: normal inspection of the chest Resp Effort & Inspection: normal respiratory effort and able to speak in complete sentences Cardio Rate: regular rate GI Inspection: Yes normal to inspection General: Yes no CVA tenderness Back/Spine/Pelvis Back: no CVA tenderness Skin General skin exam: no rashes or lesions noted Neuro General: patient oriented x3 Extrem General: Yes normal to inspection Psych Appearance: grossly normal and well kempt Mental Status: mental status grossly normal Speech and movement: Normal speech and movement present and Clear speech present Affect: normal affect Attitude: cooperative Thought process: Normal thought process present Thought content: Normal thought content present Insight: Fair insight present (Psych) Judgement: Fair judgement present (Psych) Results AMB Urinalysis, Automated UA Leukoctes 0 Tigist/uL Last Edit by Sera Villalpando on 11/14/23 15:05 UA Nitrite Negative Last Edit by Sera Villalpando on 11/14/23 15:05 UA Urobilinogen 0.2 mg/dL Last Edit by Sera Villalpando on 11/14/23 15:05 UA Protein 0 mg/dL Last Edit by Sera Villalpando on 11/14/23 15:05 UA pH 6.0 Last Edit by Sera Villalpando on 11/14/23 15:05 UA Blood 0 Santiago/uL Last Edit by Sera Villalpando on 11/14/23 15:05 UA Specific Casey 1.005 Last Edit by Sera Villalpando on 11/14/23 15:05 UA Ketone Negative Last Edit by Sera Villalpando on 11/14/23 15:05 UA Bilirubin 0 mg/dL Last Edit by Sera Villalpando on 11/14/23 15:05 UA Glucose 0 mg/dL Last Edit by Sera Villalpando on 11/14/23 15:05 Results Reviewed Results Reviewed: Laboratory Last Values Urine pH (Auto) 6.0 11/14/23 14:55 Specific Casey (Auto) 1.005 11/14/23 14:55 Urine Protein (Auto) 0 mg/dL 11/14/23 14:55 Glucose (UA)(Auto) 0 mg/dL 11/14/23 14:55 Urine Ketones (Auto) Negative 11/14/23 14:55 Urine Blood (Auto) 0 Santiago/uL 11/14/23 14:55 Urine Nitrite (Auto) Negative 11/14/23 14:55 Urine Bilirubin (Auto) 0 mg/dL 11/14/23 14:55 Urine Urobilinogen (Auto) 0.2 mg/dL 11/14/23 14:55 Leukocyte Esterase (Auto) 0 Tigist/uL 11/14/23 14:55 Assessment & Plan Assessment & Plan (1) Elevated prostate specific antigen (PSA): Code(s): R97.20 - Elevated prostate specific antigen [PSA] (2) Family history of prostate cancer in father: Code(s): Z80.42 - Family history of malignant neoplasm of prostate Plan In office urinalysis results reviewed with the patient today; as noted above. Discussed at length potential causes for elevated PSA. ALESSIA offered however deferred. Discussed further treatment options with prostate biopsy verses surveillance monitoring verses MRI of the prostate; risks and benefits of these interventions were discussed at length. Discussed at length family history of prostate cancer in relation to elevated PSA Patient currently denies any bothersome urinary issues or concerns. He reports be happy with current voiding parameters. Will obtain redraw of PSA with no sex the night before, no caffeine morning of, and no heavy lifting 1-2 days prior. Will obtain retroperitoneal ultrasound for further assessment evaluation. Follow-up in 6 weeks with imaging and labs to be completed prior; or sooner with any issues, concerns, and or questions. Orders: Orders PSA,Total (Free>4and<10) Today R97.20 - Elevated prostate specific antigen [PSA] AMB Urinalysis Automated Today Z13.9 - Encounter for screening, unspecified US retroperitoneal comp Today N40.1 - Benign prostatic hyperplasia with lower urinary tract symptoms, R97.20 - Elevated prostate specific antigen [PSA] Patient Instructions: The patient had an opportunity to ask questions regarding the treatment plan. All questions were answered. Physical exam, labs, and imaging were discussed and reviewed in detail. As well as risks, benefits, and discussion of treatment choices. No major barriers to understanding were identified. The patient expressed understanding and agreement with the above treatment plan. The patient was made aware they should contact our office by phone for worsening of their current condition, the appearance of new symptoms, or with any questions or concerns. Compliance is encouraged with any medications and follow up testing that is ordered. It is a privilege to be allowed the opportunity to participate in? your urological care.? Again, if you have any questions or concerns If you have any questions or concerns please do not hesitate to contact me. The office is [phone]. This note is constructed using voice recognition software. While every effort has been made to ensure accuracy systems admin errors may have been included. Yours sincerely, TAMMY Bakre Coding Level of Care Code New Pt Level 3 (55195) Diagnoses Elevated prostate specific antigen (PSA) R97.20 Family history of prostate cancer in father Z80.42
== END 2023-11-14 15:28 | disposition home or self-care (01) ==
PROVIDERS: PCP Internal Medicine; Visit Provider Nurse Practitioner Family
DX: R97.20 Elevated prostate specific antigen [PSA] (principal); Z80.42 Family history of malignant neoplasm of prostate
CPT/HCPCS: 99203

== ENCOUNTER → 2023-11-14 14:46 | Outpatient (BNVA) | payer MEDICARE, SELFPAY | PROVIDERS: PCP Internal Medicine; Visit Provider Nurse Practitioner Family | DX: R97.20 Elevated prostate specific antigen [PSA] (principal); Z80.42 Family history of malignant neoplasm of prostate | CPT/HCPCS: 81003; 99202 ==

== ENCOUNTER 2023-11-29 10:06 | Outpatient (REF) | payer MEDICARE, SELFPAY ==
--- NOTE | ~2023-11-29 | US_ITS ---
EXAMINATION: US RETROPERITONEAL COMPLETE (RENAL) CLINICAL INFORMATION: Elevated prostate specific antigen. COMPARISON: CT abdomen and pelvis 07/21/2017. TECHNIQUE: Real-time imaging of the kidneys and bladder. FINDINGS: RIGHT KIDNEY: 10.5 x 6.9 x 6.7 cm (SAG x AP x TRV). The kidney is normal in size, contour, and echogenicity. Renal cortical thickness is normal. No calculi or focal parenchymal lesions. No hydronephrosis. LEFT KIDNEY: 10.2 x 6.7 x 5.4 cm (SAG x AP x TRV). The kidney is normal in size, contour, and echogenicity. Renal cortical thickness is normal. No calculi or focal parenchymal lesions. No hydronephrosis. BLADDER: Well distended and normal. Bilateral ureteral jets are demonstrated. Prevoid bladder volume is 418 mL. Postvoid bladder volume is 169 mL. ADDITIONAL FINDINGS: Prostate dimensions are 6.1 x 5.3 x 5.8 cm (volume 90.8 mL). There is a prostatic impression upon the bladder base. US/US retroperitoneal comp IMPRESSION: 1. Unremarkable ultrasound appearance of the kidneys. 2. There is an increased postvoid residual volume. 3. There is prostatomegaly.
== END 2023-11-29 10:07 | disposition home or self-care (01) ==
LOC: HO.US 10:06
PROVIDERS: PCP Internal Medicine; Visit Provider Nurse Practitioner Family
DX: R97.20 Elevated prostate specific antigen [PSA] (principal); N40.1 Benign prostatic hyperplasia with lower urinary tract symptoms
CPT/HCPCS: 76770

== ENCOUNTER 2024-01-01 11:26 | Outpatient (AMB) | payer MEDICARE, SELFPAY ==
--- NOTE | 2024-01-01 11:33 | AM.OFFWIN_ITS ---
Intake Vital Signs 01/01/24 11:36 Height 5 ft 7 in Weight 163 lb BMI 25.5 BP 120/72 Blood Pressure Location Rt brachial Position Sitting Pulse 78 Pulse Source Pulse Oximeter Temp 98.8 F Temp Source Oral Pulse Oximetry (%) 98 Oxygen Delivery Method Room Air Intake Visit Reasons: EST/runny nose/ sore throat(lobby) Intake Note: pt is here for runny nose, sore throat 1 week Patient Tobacco Use Status: Former Tobacco user Allergies No Known Allergies Allergy (Verified 01/01/24 11:51) Do you need a note to return to daycare/school/sports/work: No HPI HPI Comments History of Present Illness Details Patient is a 68-year-old male in today for sick visit. Patient reports symptoms of sore throat, sinus tenderness, cough, chest congestion x7 days. He states that he recently traveled back from [place] where he was feeling fine, however as soon as he got back to [place] he developed symptoms. He thought originally it was allergies so he is taking [id number] allergy medicine which is given little relief. Patient denies fever, chills, chest pain, shortness a breath, nausea, vomiting, diarrhea Will obtain URI swab in office. Will also obtain in office strep [facility] Medical History Benign prostatic hyperplasia with lower urinary tract symptoms Degenerative joint disease of right knee Overweight (BMI 25.0-29.9) Diabetes mellitus Pure hypercholesterolemia Benign essential hypertension Congenital absence of left testicle Surgical History History of colonoscopy (~06/13/22) Hx of rotator cuff surgery Family History Father Prostate cancer Colon cancer Mother Alzheimer's dementia Social History Housing: House Alcohol intake: current Alcohol intake frequency: a few times a week Alcohol type: beer Patient Tobacco Use Status: Former Tobacco user Tobacco use type: Cigarette e-Cigarette/Vaping Use: Never Used Second Hand Smoke Exposure: Yes service: Yes Current occupational status: retired Cognitive needs: No Hearing needs: Yes Vision needs: Yes Review of Systems Const All systems reviewed & are unremarkable except as noted in HPI and below Physical Exam Vital Signs: BMI result Body Mass Index 25.5 Const Other: Appearance: Alert.? Oriented X3.? No acute distress.? Head: Normocephalic, atraumatic, Eyes: Pupils equal, round and reactive to light.?Sclera white. ENT: Pharynx erythema, No tonsilar exudates. No post nasal drip. TM intact and pearly dawkins. ? Neck: Normal inspection.? Neck supple.? CVS: Normal heart rate and rhythm.? Pulses normal.? Respiratory: No respiratory distress.? Breath sounds normal.? Neuro: Oriented X 3.? Assessment & Plan Assessment & Plan (1) Upper respiratory infection: Comment: Likely viral respiratory infection. Patient will be given prednisone, has been educated on the side effects of these medications. Patient has been educated on signs of worsening symptoms and when to report to the walk-in or when to present to the ED. Code(s): J06.9 - Acute upper respiratory infection, unspecified Qualifiers: URI type: unspecified URI Qualified Code(s): J06.9 - Acute upper respiratory infection, unspecified Plan: Take your medications as prescribed. If you were prescribed antibiotics today, it is important that you take your medication to their entirety, do not skip any doses, do not finish them early. Follow-up with your primary care provider this week. Return to the emergency department with new or worsening symptoms. Such as fevers, chills, chest pain, shortness of breath, nausea, vomiting, dizziness, headache, vision changes, lethargy In case of emergency call 911 Plan Follow-up with PCP Orders: Orders SARS-CoV2/FLU/RSV Today J06.9 - Acute upper respiratory infection, unspecified Medications: New prednisone 20 mg PO BID 10 tabs 0RF Coding Level of Care Code Est Pt Level 3 (63669) Diagnoses Upper respiratory tract infection, unspecified type J06.9 URI type: unspecified URI Time Spent (min) 22
[2024-01-01 11:36] VITALS: BP 120/72; PULSE 78; TEMP 37.1; O2SAT 98; BMI 25.5
== END 2024-01-01 13:31 | disposition home or self-care (01) ==
PROVIDERS: PCP Internal Medicine; Visit Provider Nurse Practitioner Primary Care
DX: J06.9 Acute upper respiratory infection, unspecified (principal)
CPT/HCPCS: 99213

== ENCOUNTER 2024-01-01 13:19 | Outpatient (REF) | payer MEDICARE, SELFPAY ==
[2024-01-01 14:30] LABS: Influenza A PCR NEGATIVE (Negative); Influenza B PCR NEGATIVE (Negative); Resp Syncy Virus RNA Qual PCR NEGATIVE (Negative); SARS COV2 PCR INHOUSE NEGATIVE (Negative)
== END 2024-01-01 13:20 | disposition home or self-care (01) ==
LOC: HO.LNP 13:19
PROVIDERS: Visit Provider Nurse Practitioner Primary Care
DX: J06.9 Acute upper respiratory infection, unspecified (principal)
CPT/HCPCS: 0241U

== ENCOUNTER 2024-01-15 08:54 | Outpatient (REF) | payer MEDICARE, SELFPAY ==
[2024-01-15 09:08] LABS: MANUAL DIFF FLAG NO
[2024-01-15 09:42] LABS: Basophils Absolute Auto 0.1 X10*3/uL (0.0-0.2); Basophils Percent Auto 0.6 % (0-2); Eosinophils Absolute Auto 0.4 X10*3/uL (0.0-0.4); Eosinophils Percent Auto 4.5 % (0-4); Hematocrit 44.2 % (42.0-52.0); Hemoglobin 14.3 g/dl (14.0-18.0); Imm Gran Abs Auto 0.04 X10*3/uL (0.00-0.03); Imm Gran Pct Auto 0.5 % (0.0-0.4); Lymphocytes Absolute Auto 2.9 X10*3/uL (1.2-4.9); Lymphocytes Percent Auto 35.4 % (20-40); Mean Corpuscular HGB Conc 32.4 g/dl (31.0-36.0); Mean Corpuscular Volume 89.7 fL (80.0-98.0); Mean Platelet Volume 9.9 fL (9.4-12.4); Monocytes Absolute Auto 0.4 X10*3/uL (0.1-1.2); Neutrophils Absolute Auto 4.4 x10*3/uL (2.0-8.3); Platelet Count 269 X10*3/uL (160-400); Red Blood Count 4.93 X10*6/uL (4.60-5.80); Red Cell Distribution Width 12.7 % (11.0-16.0); White Blood Count 8.2 X10*3/uL (4.8-10.8)
[2024-01-15 09:43] LABS: Appearance Urine Clear; Color Urine Yellow; Glucose Urine UA Negative (Negative); Leukocyte Esterase Urine Negative (Negative); Nitrite Urine Negative (Negative); PH 5.5 (5.0-9.0); Urine Blood Negative (Negative); Urine Ketones Negative (Negative); Urine Protein Negative (Neg-Trace)
[2024-01-15 09:47] LABS: Estimated Average Glucose 148 mg/dL; Hemoglobin A1c % 6.8 % (<6.0)
[2024-01-15 10:22] LABS: Creatinine Urine 123.08 mg/dL; Microalbum/Creatinine Ratio Ur 10.5 ug/mg cr (<30)
[2024-01-15 10:42] LABS: Alanine Aminotransferase 15 U/L (0-40); Albumin Level 3.9 g/dL (3.5-5.0); Alkaline Phosphatase 89 U/L (39-117); Anion Gap 15 (12-20); Aspartate Amino Transferase 16 U/L (5-37); Bilirubin Total 0.6 mg/dL (0.0-1.0); Blood Urea Nitrogen 15 mg/dL (9-16); Calcium 9.4 mg/dL (8.4-10.2); Carbon Dioxide 27 mmol/L (22-29); Chloride 102 mmol/L (96-108); Cholesterol 141 mg/dL (<200); Estimated Glomerular Filt Rate > 60; Glucose Fasting 219 mg/dL (60-99); HDL Cholesterol 34 mg/dL (>40); LDL Cholesterol Calculated 80 mg/dL (<100); Sodium 140 mmol/L (135-145); Triglycerides 137 mg/dL (<150)
[2024-01-15 10:48] LABS: PSA,Total (Free>4and<10) 5.93 ng/mL (0.00-4.00)
[2024-01-15 10:58] LABS: Vitamin D 25-OH Total 23.5 ng/mL (>30)
[2024-01-16 12:38] LABS: Free Prostate Spec Ag 0.7 ng/mL; Percent Free Prostate Spec Ag 12 % (calc) (>25); Prostate Specific Ag Total 5.7 ng/mL (< OR = 4.0)
== END 2024-01-15 08:55 | disposition home or self-care (01) ==
LOC: HO.LAB 08:54
PROVIDERS: Nurse Practitioner Family; PCP Internal Medicine; Visit Provider Internal Medicine
DX: Z00.00 Encounter for general adult medical examination without abnormal findings (principal); I10 Essential (primary) hypertension; E55.9 Vitamin D deficiency, unspecified; E78.00 Pure hypercholesterolemia, unspecified; E83.42 Hypomagnesemia; R30.0 Dysuria; E11.9 Type 2 diabetes mellitus without complications; R97.20 Elevated prostate specific antigen [PSA]; D64.9 Anemia, unspecified; Z12.5 Encounter for screening for malignant neoplasm of prostate
CPT/HCPCS: 36415; 80053; 80061; 81003; 82043; 82306; 82570; 83036; 83735; 84153; 84154; 84443; 85025

== ENCOUNTER 2024-01-25 08:51 | Outpatient (AMB) | payer MEDICARE, SELFPAY ==
[2024-01-25 08:56] VITALS: BP 120/62; PULSE 75; TEMP 36.7; O2SAT 98; BMI 27.1
--- NOTE | 2024-01-25 08:56 | AM.OFFWIN_ITS ---
Intake Vital Signs 01/25/24 08:56 Height 5 ft 7 in Weight 173 lb BMI 27.1 BP 120/62 Blood Pressure Location Lt brachial Position Sitting Pulse 75 Pulse Source Pulse Oximeter Temp 98.0 F Pulse Oximetry (%) 98 Oxygen Delivery Method Room Air Intake Visit Reasons: EP Cough Intake Note: pt is here today for cough started 1 weeks ago Patient Tobacco Use Status: Former Tobacco user Allergies No Known Allergies Allergy (Verified 01/25/24 08:59) Do you need a note to return to daycare/school/sports/work: No HPI HPI Comments History of Present Illness Details This is a 68-year-old male who presented to the office complaining of dry cough, sore throat, postnasal drip, sneezing, and itchy eyes x1 week. Patient states he had similar symptoms 1 month ago and he was diagnosed with a viral URI and given a 5 day course of prednisone, which seemed to help his symptoms. He states that these symptoms occur after doing yard work. He denies any fevers or chills. He denies any sputum production. He denies any chest pain or shortness of breath. [facility] Medical History Benign prostatic hyperplasia with lower urinary tract symptoms Degenerative joint disease of right knee Overweight (BMI 25.0-29.9) Diabetes mellitus Pure hypercholesterolemia Benign essential hypertension Congenital absence of left testicle Surgical History History of colonoscopy (~06/13/22) Hx of rotator cuff surgery Family History Father Prostate cancer Colon cancer Mother Alzheimer's dementia Social History Housing: House Alcohol intake: current Alcohol intake frequency: a few times a week Alcohol type: beer Patient Tobacco Use Status: Former Tobacco user Tobacco use type: Cigarette e-Cigarette/Vaping Use: Never Used Second Hand Smoke Exposure: Yes service: Yes Current occupational status: retired Cognitive needs: No Hearing needs: Yes Vision needs: Yes Review of Systems Const All systems reviewed & are unremarkable except as noted in HPI and below Reports no additional complaints Eyes Reports no additional complaints ENT Reports no additional complaints Card Reports no additional complaints Resp Reports no additional complaints GI Reports no additional complaints Reports no additional complaints Musc Reports no additional complaints Skin/Breast Reports system reviewed and no additional complaints, except as documented Neuro Reports no additional complaints Psych Reports no additional complaints Endo Reports no additional complaints Zain/Lymph Reports no additional complaints Aller/Immun Reports no additional complaints Physical Exam Vital Signs: Last Vital Signs Temp 98.0 F 01/25/24 08:56 Pulse 75 01/25/24 08:56 BP 120/62 01/25/24 08:56 Pulse Ox 98 01/25/24 08:56 Oxygen Delivery Method Room Air 01/25/24 08:56 BMI result Body Mass Index 27.1 Const Other: Vital signs reviewed. Constitutional: Non-toxic appearing. No acute distress. Well-developed and well-nourished. HEENT: Normocephalic and atraumatic. PERRL/EOMI. Skin: Warm and dry. No rashes or lesions noted. Neck: Full and painless range of motion. No cervical lymphadenopathy. Cardio: Regular rate and rhythm. No murmurs, gallops, or rubs. No lower extremity edema. No JVD. Pulmonary: No respiratory distress. No accessory muscle usage. Clear to auscultation bilaterally without wheezing, crackles, or rhonchi. He has an occasional raspy cough. Gastrointestinal: Soft, nontender, and nondistended in all 4 quadrants. Normoactive bowel sounds in all 4 quadrants. Genitourinary: No CVA tenderness. Musculoskeletal: Normal range of motion in joints throughout the body. No deformity or other signs of injury. Neuro: Alert and oriented x4. Cranial nerves 2-12 grossly intact. No focal deficits appreciated. Psych: Normal mood and affect. Assessment & Plan Assessment & Plan (1) Allergic rhinosinusitis: Code(s): J30.9 - Allergic rhinitis, unspecified Qualifiers: Allergic rhinitis trigger: unspecified Allergic rhinitis seasonality: seasonal Qualified Code(s): J30.2 - Other seasonal allergic rhinitis Plan: This is a 68-year-old male who presented to the walk-in clinic complaining of cough, sneezing, sore throat, postnasal drip, and itchy eyes x 1 week following yd work. History and physical most consistent with allergic rhinosinusitis. Patient states he had similar symptoms approximately 1 month ago and he got a 5 day course of prednisone, which helped his symptoms. I explained to the patient that prednisone is not the treatment for allergies; however, patient would like a 5 day course of prednisone. He was sent PO prednisone 40 mg daily x5 days. I also recommended that the patient start a daily antihistamine such as loratadine as well as an as-needed antihistamine such as diphenhydramine to actually treat the cause of his symptoms. Patient is a diabetic and he was made aware that prednisone can increase his blood sugars so he should monitor his sugars more frequently. Patient was also given a prescription for p.o. benzonatate 100 mg 3 times daily as needed for cough as his cough is making it difficult for him to sleep. Patient was advised to follow-up here or proceed to the emergency room if he were to develop fever/chills, sputum production, or shortness of breath. Patient verbalizes understanding and he is in agreement with the plan. Medications: New prednisone 40 mg (2 x 20 mg) PO DAILY 10 tabs 0RF benzonatate 100 mg PO TID PRN 10 caps 0RF cough Coding Level of Care Code Est Pt Level 3 (02913) Diagnoses Seasonal allergic rhinitis, unspecified trigger J30.2 Allergic rhinitis trigger: unspecified Allergic rhinitis seasonality: seasonal
== END 2024-01-25 10:26 | disposition home or self-care (01) ==
PROVIDERS: PCP Internal Medicine; Visit Provider Physician Assistant Medical
DX: J30.2 Other seasonal allergic rhinitis (principal)
CPT/HCPCS: 99213

== ENCOUNTER 2024-02-04 09:06 | Outpatient (AMB) | payer MEDICARE, SELFPAY ==
--- NOTE | 2024-02-04 09:52 | MHC.OFFWIV ---
Intake Vital Signs 02/04/24 09:59 Height 5 ft 7 in Weight 173 lb BMI 27.1 BP 118/74 Blood Pressure Location Rt brachial Position Sitting Pulse 76 Pulse Source Pulse Oximeter Temp 99.6 F Temp Source Oral Pulse Oximetry (%) 97 Intake Visit Reasons: EP cough sinus infection meds not working 210 Intake Note: pt is here for cough, sinus infection patient states he was here 09/22 and medications not working Patient Tobacco Use Status: Former Tobacco user Allergies No Known Allergies Allergy (Verified 02/04/24 09:52) Do you need a note to return to daycare/school/sports/work: No HPI HPI Comments History of Present Illness Details 69 y/o male patient who presents to walk in clinic with c/o persitent cough, sneezing, runny nose and headaches. Pt has been seen here twice with similar symptoms. He was treated with Prednisone twice an dhe has noticed his BS have been elevated. [facility] Medical History Benign prostatic hyperplasia with lower urinary tract symptoms Degenerative joint disease of right knee Overweight (BMI 25.0-29.9) Diabetes mellitus Pure hypercholesterolemia Benign essential hypertension Congenital absence of left testicle Surgical History History of colonoscopy (~06/13/22) Hx of rotator cuff surgery Family History Father Prostate cancer Colon cancer Mother Alzheimer's dementia Social History Housing: House Alcohol intake: current Alcohol intake frequency: a few times a week Alcohol type: beer Patient Tobacco Use Status: Former Tobacco user Tobacco use type: Cigarette e-Cigarette/Vaping Use: Never Used Second Hand Smoke Exposure: Yes service: Yes Current occupational status: retired Cognitive needs: No Hearing needs: Yes Vision needs: Yes Review of Systems Const All systems reviewed & are unremarkable except as noted in HPI and below Physical Exam Vital Signs: Last Vital Signs Temp 99.6 F 02/04/24 09:59 Pulse 76 02/04/24 09:59 BP 118/74 02/04/24 09:59 Pulse Ox 97 02/04/24 09:59 BMI result Body Mass Index 27.1 Const General: comfortable and no acute distress Nutritional Appearance: well nourished Orientation/consciousness: patient oriented x3 HEENT Head: Yes normocephalic Ears: external ears normal and TM abnormal bulging and with fluid behind the TM bilateral; not perforated General nose exam: Abnormal mucous membranes and turbinates present boggy and erythematous Face and sinus: Yes sinuses nontender Mouth: moist mucous membranes Throat: Yes posterior oropharynx normal Resp Effort & Inspection: normal respiratory effort and able to speak in complete sentences Auscultation: clear to auscultation bilaterally, no crackles, no rales, no rhonchi and no wheezes Cardio Rate: regular rate Rhythm: regular rhythm Neuro General: patient oriented x3, gait normal and moves all extremities Psych Speech and movement: Normal speech and movement present Assessment & Plan Assessment & Plan (1) Cough in adult: Code(s): R05.9 - Cough, unspecified Plan: Doxycycline as directed Warm fluids with honey Chest Xray (2) Allergic rhinosinusitis: Code(s): J30.9 - Allergic rhinitis, unspecified Qualifiers: Allergic rhinitis seasonality: seasonal Allergic rhinitis trigger: pollen Qualified Code(s): J30.1 - Allergic rhinitis due to pollen Plan: Take Loratadine 2 Tabs in the AM and 2 Tabs PM Flonase nasal spray Orders: Orders XR chest 2V Today R05.9 - Cough, unspecified Medications: New fluticasone furoate 27.5 mcg/actuation (Flonase Sensimist) into each nostril 2 sprays intranasal DAILY 9.1 mL 0RF J30.1 - Allergic rhinitis due to pollen benzonatate 100 mg PO TID 30 caps 0RF cough R05.9 - Cough, unspecified loratadine (Claritin) 10 mg PO DAILY 90 tabs 0RF J30.1 - Allergic rhinitis due to pollen doxycycline hyclate 100 mg PO BID 20 caps 0RF 10 days R05.9 - Cough, unspecified Coding Level of Care Code Est Pt Level 3 (72484) Diagnoses Cough in adult R05.9 Seasonal allergic rhinitis due to pollen J30.1 Allergic rhinitis seasonality: seasonal Allergic rhinitis trigger: pollen Time Spent (min) 15
[2024-02-04 09:59] VITALS: BP 118/74; PULSE 76; TEMP 37.6; O2SAT 97; BMI 27.1
== END 2024-02-04 11:17 | disposition home or self-care (01) ==
PROVIDERS: PCP Internal Medicine; Visit Provider Nurse Practitioner Family
DX: R05.9 Cough, unspecified (principal); J30.1 Allergic rhinitis due to pollen
CPT/HCPCS: 99213

== ENCOUNTER 2024-02-04 10:29 | Outpatient (REF) | payer MEDICARE, SELFPAY ==
--- NOTE | ~2024-02-04 | XR_ITS ---
EXAMINATION: XR CHEST CLINICAL INFORMATION: Cough and chest tightness COMPARISON: None available. TECHNIQUE: 2 views of the chest were obtained. FINDINGS: No significant abnormality is noted involving the heart, lungs, mediastinum, bony thorax or soft tissues. Slight ill-defined increased opacity over the right upper hemithorax likely related to technical issues. No gross consolidations, lung masses or effusions are seen. XR/XR chest 2V IMPRESSION: No acute intrathoracic disease.
== END 2024-02-04 10:30 | disposition home or self-care (01) ==
LOC: HO.HMGCX 10:29
PROVIDERS: PCP Internal Medicine; Visit Provider Nurse Practitioner Family
DX: R05.9 Cough, unspecified (principal)
CPT/HCPCS: 71046

== ENCOUNTER 2024-03-12 13:15 | Outpatient (AMB) | payer MEDICARE, SELFPAY ==
--- NOTE | 2024-03-12 13:32 | MHC.OFFVIS ---
Intake Visit Reasons: follow up/PSA/US Intake Note: Patient presents for follow up visit on: Elevated PSA, ultrasound and lab results Imaging Completed: 11/29/23 PSA: 5.93 Urology Medications: none Blood Thinner: none Band Splitter Required: No Accompanied by: Self / Same As Patient Allergies No Known Allergies Allergy (Verified 03/12/24 13:37) HPI Comments Details: Sotero is a pleasant 68-year-old male patient of Dr. Dumont. He has a past medical history of BPH with lower urinary tract symptoms, degenerative joint disease, diabetes, hypercholesteremia, hypertension, and congenital absence of left testicle. He presents to the office today as a new patient for an elevated PSA. Of note, patient was seen approximately 6 weeks ago at which time a retroperitoneal ultrasound was ordered and redraw of PSA. These results were reviewed with the patient today. Bilateral kidneys with no calculi, lesions, and or hydronephrosis noted. The bladder is well distended and normal. Pre void bladder volume is a proximally 420 mL. Postvoid bladder volume is approximately 180 mL. Prostate measures approximately 91 mL there is a prostatic impression upon the bladder base. PSAs are as follows: 01/01 3.9, 07/05 5.3, 02/03 5.9 % free PSA 12% PCPT risk calculator results reviewed with the patient today; 42% chance that prostate biopsy is negative for cancer, 39% chance of low-grade prostate cancer, and 19% chance of high-grade prostate cancer. Discussed at length potential causes of elevated PSA as well as further treatment options to include MRI of the prostate versus biopsy versus surveillance monitoring; risks and benefits of these interventions were discussed at length. In discussion with the patient today reports to be doing and feeling well. Reports previously following up with urologist Dr. Hardwick and undergoing TURP in the past due to urinary retention. He reports having experienced lower urinary tract symptoms previously when he had uncontrolled diabetes however since his diabetes has been controlled he has experienced no urinary issues. When asked he does report a family history of prostate cancer. He reports his dad in his late 50s from prostate cancer. He currently denies any bothersome urinary issues or concerns. 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 Discussed at length potential causes for elevated PSA. ALESSIA offered however deferred. In office urinalysis results reviewed with the patient today. He otherwise offers no other issues or concerns. [facility] Medical History Benign prostatic hyperplasia with lower urinary tract symptoms Degenerative joint disease of right knee Overweight (BMI 25.0-29.9) Diabetes mellitus Pure hypercholesterolemia Benign essential hypertension Congenital absence of left testicle Surgical History History of colonoscopy (~06/13/22) Hx of rotator cuff surgery Family History Father Prostate cancer Colon cancer Mother Alzheimer's dementia Social History Housing: House Alcohol intake: current Alcohol intake frequency: a few times a week Alcohol type: beer Patient Tobacco Use Status: Former Tobacco user Tobacco use type: Cigarette e-Cigarette/Vaping Use: Never Used Second Hand Smoke Exposure: Yes service: Yes Current occupational status: retired Cognitive needs: No Hearing needs: Yes Vision needs: Yes Review of Systems Const All systems reviewed & are unremarkable except as noted in HPI and below Reports as per HPI Eyes Reports no additional complaints ENT Reports no additional complaints Card Reports as per HPI Resp Reports no additional complaints GI Reports no additional complaints Reports as per HPI Musc Reports as per HPI Neuro Reports no additional complaints Psych Reports no additional complaints Endo Reports as per HPI Zain/Lymph Reports no additional complaints Aller/Immun Reports no additional complaints Physical Exam Const General: cooperative, healthy appearing, comfortable, no acute distress, well developed, alert and awake Orientation/consciousness: patient oriented x3 Limitations: no limitations HEENT Head: Yes normal to inspection, Yes normocephalic and Yes atraumatic Ears: hearing grossly normal bilaterally Eyes General: appearance normal, both eyes and all related structures Neck Neck: Yes normal visual inspection and Yes trachea midline Chest Chest palpation & inspection: normal inspection of the chest Resp Effort & Inspection: normal respiratory effort and able to speak in complete sentences Cardio Rate: regular rate GI Inspection: Yes normal to inspection General: Yes no CVA tenderness Back/Spine/Pelvis Back: no CVA tenderness Skin General skin exam: no rashes or lesions noted Neuro General: patient oriented x3 Extrem General: Yes normal to inspection Psych Appearance: grossly normal and well kempt Mental Status: mental status grossly normal Speech and movement: Normal speech and movement present and Clear speech present Affect: normal affect Attitude: cooperative Thought process: Normal thought process present Thought content: Normal thought content present Insight: Fair insight present (Psych) Judgement: Fair judgement present (Psych) Results AMB Urinalysis, Automated UA Leukoctes 0 Tigist/uL Last Edit by Watchfinder on 03/12/24 13:49 UA Nitrite Negative Last Edit by Watchfinder on 03/12/24 13:49 UA Urobilinogen 0.2 mg/dL Last Edit by Watchfinder on 03/12/24 13:49 UA Protein 0 mg/dL Last Edit by Watchfinder on 03/12/24 13:49 UA pH 6.0 Last Edit by Watchfinder on 03/12/24 13:49 UA Blood 0 Santiago/uL Last Edit by Watchfinder on 03/12/24 13:49 UA Specific [place] 1.020 Last Edit by Watchfinder on 03/12/24 13:49 UA Ketone Negative Last Edit by Watchfinder on 03/12/24 13:49 UA Bilirubin 0 mg/dL Last Edit by Watchfinder on 03/12/24 13:49 UA Glucose 250 mg/dL Last Edit by Watchfinder on 03/12/24 13:49 Results Reviewed Results Reviewed: Laboratory Last Values Urine pH (Auto) 6.0 03/12/24 13:38 Specific [place] (Auto) 1.020 03/12/24 13:38 Urine Protein (Auto) 0 mg/dL 03/12/24 13:38 Glucose (UA)(Auto) 250 mg/dL 03/12/24 13:38 Urine Ketones (Auto) Negative 03/12/24 13:38 Urine Blood (Auto) 0 Santiago/uL 03/12/24 13:38 Urine Nitrite (Auto) Negative 03/12/24 13:38 Urine Bilirubin (Auto) 0 mg/dL 03/12/24 13:38 Urine Urobilinogen (Auto) 0.2 mg/dL 03/12/24 13:38 Leukocyte Esterase (Auto) 0 Tigist/uL 03/12/24 13:38 Date of Service: 11/29/23 EXAMINATION: US RETROPERITONEAL COMPLETE (RENAL) FINDINGS: RIGHT KIDNEY: 10.5 x 6.9 x 6.7 cm (SAG x AP x TRV). The kidney is normal in size, contour, and echogenicity. Renal cortical thickness is normal. No calculi or focal parenchymal lesions. No hydronephrosis. LEFT KIDNEY: 10.2 x 6.7 x 5.4 cm (SAG x AP x TRV). The kidney is normal in size, contour, and echogenicity. Renal cortical thickness is normal. No calculi or focal parenchymal lesions. No hydronephrosis. BLADDER: Well distended and normal. Bilateral ureteral jets are demonstrated. Prevoid bladder volume is 418 mL. Postvoid bladder volume is 169 mL. ADDITIONAL FINDINGS: Prostate dimensions are 6.1 x 5.3 x 5.8 cm (volume 90.8 mL). There is a prostatic impression upon the bladder base. IMPRESSION: 1. Unremarkable ultrasound appearance of the kidneys. 2. There is an increased postvoid residual volume. 3. There is prostatomegaly. Assessment & Plan Assessment & Plan (1) Elevated prostate specific antigen (PSA): Code(s): R97.20 - Elevated prostate specific antigen [PSA] Category: Medical (2) Benign prostatic hyperplasia with lower urinary tract symptoms: Code(s): N40.1 - Benign prostatic hyperplasia with lower urinary tract symptoms Category: Medical Qualifiers: Lower urinary tract symptom detail: weak urinary stream Qualified Code(s): N40.1 - Benign prostatic hyperplasia with lower urinary tract symptoms; R39.12 - Poor urinary stream Plan: Plan Risks and benefits regarding trans rectal ultrasound with prostate biopsy were discussed.? Options of continued surveillance, no treatment and biopsy were offered. The risks include but are not limited to, urinary tract infection, sepsis, difficulty urinating, bleeding into the rectum or bladder that requires intervention and transfusion,and failure to diagnose prostate cancer. The patient understands the options and the risks involved. They wish to proceed. Printed information was provided to ensure he remains off anticoagulation for the appropriate length of time. He may require cardiology or PCP clearance.? An antibiotic will be administered prior to, and following the procedure Plan In office urinalysis results reviewed with the patient today; as noted above. Recent retroperitoneal ultrasound results reviewed with the patient today; as noted above. Recent PSA results reviewed with the patient today; as noted above. Recent PCP T risk calculator results reviewed with the patient today; as noted above. Discussed at length potential causes of elevated PSA as well as further treatment options; risks and benefits of these interventions were discussed. All questions were answered. Patient currently denies any bothersome urinary issues or concerns. He reports be happy with current voiding parameters. Will schedule for prostate biopsy as discussed. Prescription provided for prostate biopsy and discussed specific instructions of taking medication day before, day of, and day after procedure Follow-up per doctor's orders; or sooner with any issues, concerns, and or questions. Orders: Orders AMB Urinalysis Automated Today Z13.9 - Encounter for screening, unspecified Medications: New levofloxacin take 1 tablet day before procedure, 1 tablet day of procedure and 1 tablet day after procedure 500 mg PO daily 3 tabs 0RF 3 days Patient Instructions: The patient had an opportunity to ask questions regarding the treatment plan. All questions were answered. Physical exam, labs, and imaging were discussed and reviewed in detail. As well as risks, benefits, and discussion of treatment choices. No major barriers to understanding were identified. The patient expressed understanding and agreement with the above treatment plan. The patient was made aware they should contact our office by phone for worsening of their current condition, the appearance of new symptoms, or with any questions or concerns. Compliance is encouraged with any medications and follow up testing that is ordered. It is a privilege to be allowed the opportunity to participate in? your urological care.? Again, if you have any questions or concerns If you have any questions or concerns please do not hesitate to contact me. The office is [phone]. This note is constructed using voice recognition software. While every effort has been made to ensure accuracy critical care clinical nurse specialist errors may have been included. Yours sincerely, TAMMY Baker Coding Level of Care Code Est Pt Level 4 (19953) Diagnoses Elevated prostate specific antigen (PSA) R97.20 Benign prostatic hyperplasia with weak urinary stream N40.1; R39.12 Lower urinary tract symptom detail: weak urinary stream
== END 2024-03-12 14:10 | disposition home or self-care (01) ==
PROVIDERS: PCP Internal Medicine; Visit Provider Nurse Practitioner Family
DX: R97.20 Elevated prostate specific antigen [PSA] (principal); N40.1 Benign prostatic hyperplasia with lower urinary tract symptoms; R39.12 Poor urinary stream; Z13.9 Encounter for screening, unspecified
CPT/HCPCS: 99214

== ENCOUNTER → 2024-03-12 13:15 | Outpatient (BNVA) | payer MEDICARE, SELFPAY | PROVIDERS: PCP Internal Medicine; Visit Provider Nurse Practitioner Family | DX: N40.1 Benign prostatic hyperplasia with lower urinary tract symptoms (principal); N13.8 Other obstructive and reflux uropathy; R97.20 Elevated prostate specific antigen [PSA]; R39.12 Poor urinary stream; Z90.79 Acquired absence of other genital organ(s) | CPT/HCPCS: 81003; 99212 ==

== ENCOUNTER 2024-04-25 07:53 | Outpatient (REF) | payer MEDICARE, SELFPAY ==
[2024-04-25] MEDS: Lidocaine HCl 1 % MPF 5 ML VIAL 10 ML SUBCUT (09:05)
--- NOTE | 2024-04-25 15:58 | W.PM.OPN ---
Operative Note Operative Note Date of Service: 04/25/24 Narrative: PreOperative Diagnosis:? ? Elevated PSA Post Operative Diagnosis:??Elevated PSA Procedure:?1. Transrectal ultrasound guided biopsy of the prostate 12 core 2. Transrectal ultrasound measurement of prostate 3. Transrectal ultrasound guided pudendal nerve block Surgeon:?Dr Blayne Beltrán Anesthesia:? Local Indications for procedure: Elevated PSA Procedure: Preoperative antibiotics confirmed. After informed consent was verified the patient was placed on the procedure table in left lateral position. Patient identity confirmed. Safety pause time-out performed. Digital rectal exam performed to dilate rectal sphincter, iodine mixed with lubricant jelly 30 cc placed per rectum. Ultrasound probe was placed per rectum. The prostate was visualized. The prostate was measured width 5.35 cm, height 6.46 cm, length 7.16 cm with a volume of 130 mL. An ultrasound guided pudendal nerve block was performed using 10 cc of 1% lidocaine. A 12 core biopsy was performed from the left base, left mid, left apex and right base, mid, apex 2 biopsies from each section. The ultrasound probe was removed and digital palpation of the prostate for 1-2 minutes for hemostasis was performed. The patient tolerated the procedure well. Complications: None
== END 2024-04-25 07:54 | disposition home or self-care (01) ==
LOC: HO.US 07:53
PROVIDERS: PCP Internal Medicine; Visit Provider Urology
DX: R97.20 Elevated prostate specific antigen [PSA] (principal)
CPT/HCPCS: 55700; 76942; 88305

== ENCOUNTER → 2024-04-25 07:53 | Outpatient (BNV) | payer MEDICARE, SELFPAY | PROVIDERS: PCP Internal Medicine; Visit Provider Urology | DX: R97.20 Elevated prostate specific antigen [PSA] (principal) | CPT/HCPCS: 55700; 76872; 76942 ==

== ENCOUNTER 2024-05-07 13:15 | Outpatient (REF) | payer MEDICARE, SELFPAY | END 2024-05-07 13:16 | disposition home or self-care (01) | LOC: HO.LNP 13:15 | PROVIDERS: PCP Internal Medicine; Visit Provider Urology | DX: R97.20 Elevated prostate specific antigen [PSA] (principal); N40.1 Benign prostatic hyperplasia with lower urinary tract symptoms; R39.12 Poor urinary stream; N39.0 Urinary tract infection, site not specified | CPT/HCPCS: 81003; 87086; 99212 ==

== ENCOUNTER 2024-05-07 13:15 | Outpatient (AMB) | payer MEDICARE, SELFPAY ==
--- NOTE | 2024-05-07 13:23 | MHC.OFFVIS ---
Intake Visit Reasons: Prostate biopsy results Intake Note: Patient is present for prostate biopsy results Urology Medication:none Antibiotic Allergy:none Blood Thinner:none Purification Operator Required: No Allergies No Known Allergies Allergy (Verified 05/07/24 13:24) Medication List - Last Reconciled 05/07/24 by Blayne Beltrán MD amoxicillin-pot clavulanate 875-125 mg 1 tab PO BID atorvastatin 20 mg PO DAILY 90 days blood sugar diagnostic (OneTouch Ultra Test strips) USE TO CHECK BLOOD SUGAR ONCE DAILY dutasteride (Avodart) 0.5 mg PO DAILY fluticasone furoate 27.5 mcg/actuation (Flonase Sensimist) 2 sprays intranasal DAILY glimepiride 2 mg PO QAM 30 days lancets As directed lancets ONE TOUCH ULTRA TEST STRIPS - use as directed - Dx: E11.9 -- Diabetes levofloxacin 500 mg PO daily 3 days lisinopril 10 mg PO DAILY 90 days loratadine (Claritin) 10 mg PO DAILY magnesium oxide 400 mg PO BID metformin ER 1,000 mg (2 x 500 mg) PO BID 90 days HPI Comments Details: 05/07/24--Sotero is here for FU s/p prostate bx 04/25/24. He states he has been getting up about 4 times at night since the prostate biopsy. Estimated prostate volume was 130 mL, which is likely overestimated, in review of his chart, US retroperitoneum in November, estimated prostate volume at 90 mL. The prostate volume is likely somewhere in between these numbers. I have reviewed pathology- benign tissue. Will empirically start Augmentin due to irritative urinary symptoms. Discussed initiate avodart. Follow-up in 4 months PSA prior. 03/12/24--Sotero is a pleasant 68-year-old male patient of Dr. Dumont. He has a past medical history of BPH with lower urinary tract symptoms, degenerative joint disease, diabetes, hypercholesteremia, hypertension, and congenital absence of left testicle. He presents to the office today as a new patient for an elevated PSA. Of note, patient was seen approximately 6 weeks ago at which time a retroperitoneal ultrasound was ordered and redraw of PSA. These results were reviewed with the patient today. Bilateral kidneys with no calculi, lesions, and or hydronephrosis noted. The bladder is well distended and normal. Pre void bladder volume is a proximally 420 mL. Postvoid bladder volume is approximately 180 mL. Prostate measures approximately 91 mL there is a prostatic impression upon the bladder base. PSAs are as follows: 01/01 3.9, 07/05 5.3, 02/03 5.9 % free PSA 12% PCPT risk calculator results reviewed with the patient today; 42% chance that prostate biopsy is negative for cancer, 39% chance of low-grade prostate cancer, and 19% chance of high-grade prostate cancer. Discussed at length potential causes of elevated PSA as well as further treatment options to include MRI of the prostate versus biopsy versus surveillance monitoring; risks and benefits of these interventions were discussed at length. In discussion with the patient today reports to be doing and feeling well. Reports previously following up with urologist Dr. Hardwick and undergoing TURP in the past due to urinary retention. He reports having experienced lower urinary tract symptoms previously when he had uncontrolled diabetes however since his diabetes has been controlled he has experienced no urinary issues. When asked he does report a family history of prostate cancer. He reports his dad in his late 50s from prostate cancer. He currently denies any bothersome urinary issues or concerns. 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 Discussed at length potential causes for elevated PSA. ALESSIA offered however deferred. In office urinalysis results reviewed with the patient today. He otherwise offers no other issues or concerns. [facility] Medical History Benign prostatic hyperplasia with lower urinary tract symptoms Degenerative joint disease of right knee Overweight (BMI 25.0-29.9) Diabetes mellitus Pure hypercholesterolemia Benign essential hypertension Congenital absence of left testicle Surgical History History of colonoscopy (~06/13/22) Hx of rotator cuff surgery Family History Father Prostate cancer Colon cancer Mother Alzheimer's dementia Social History Housing: House Alcohol intake: current Alcohol intake frequency: a few times a week Alcohol type: beer Patient Tobacco Use Status: Former Tobacco user Tobacco use type: Cigarette e-Cigarette/Vaping Use: Never Used Second Hand Smoke Exposure: Yes service: Yes Current occupational status: retired Cognitive needs: No Hearing needs: Yes Vision needs: Yes Results AMB Urinalysis, Automated UA Leukoctes 0 Tigist/uL Last Edit by ESTHER Andres on 05/07/24 13:34 UA Nitrite Negative Last Edit by Ingrid Aldana CCM on 05/07/24 13:34 UA Urobilinogen 0.2 mg/dL Last Edit by Ingrid Aldana CCM on 05/07/24 13:34 UA Protein 0 mg/dL Last Edit by Ingrid Aldana [facility] on 05/07/24 13:34 UA pH 6.0 Last Edit by Ingrid Aldana [facility] on 05/07/24 13:34 UA Blood 0 Santiago/uL Last Edit by Ingrid Aldana [facility] on 05/07/24 13:34 UA Specific [place] 1.020 Last Edit by Ingrid Aldana CCM on 05/07/24 13:34 UA Ketone Negative Last Edit by Ingrid Aldana [facility] on 05/07/24 13:34 UA Bilirubin 0 mg/dL Last Edit by Ingrid Aldana [facility] on 05/07/24 13:34 UA Glucose 0 mg/dL Last Edit by Ingrid Aldana [facility] on 05/07/24 13:34 Results Reviewed Results Reviewed: Laboratory Last Values Urine pH (Auto) 6.0 05/07/24 13:33 Specific [place] (Auto) 1.020 05/07/24 13:33 Urine Protein (Auto) 0 mg/dL 05/07/24 13:33 Glucose (UA)(Auto) 0 mg/dL 05/07/24 13:33 Urine Ketones (Auto) Negative 05/07/24 13:33 Urine Blood (Auto) 0 Santiago/uL 05/07/24 13:33 Urine Nitrite (Auto) Negative 05/07/24 13:33 Urine Bilirubin (Auto) 0 mg/dL 05/07/24 13:33 Urine Urobilinogen (Auto) 0.2 mg/dL 05/07/24 13:33 Leukocyte Esterase (Auto) 0 Tigist/uL 05/07/24 13:33 Assessment & Plan Assessment & Plan (1) Elevated prostate specific antigen (PSA): Code(s): R97.20 - Elevated prostate specific antigen [PSA] Category: Medical (2) Benign prostatic hyperplasia with lower urinary tract symptoms: Code(s): N40.1 - Benign prostatic hyperplasia with lower urinary tract symptoms Category: Medical Qualifiers: Lower urinary tract symptom detail: weak urinary stream Qualified Code(s): N40.1 - Benign prostatic hyperplasia with lower urinary tract symptoms; R39.12 - Poor urinary stream Plan Will empirically start Augmentin due to irritative urinary symptoms. Discussed initiate avodart. Follow-up in 4 months PSA prior. Orders: Orders AMB Urinalysis Automated Today Z13.9 - Encounter for screening, unspecified Medications: New dutasteride (Avodart) 0.5 mg PO DAILY 90 caps 2RF amoxicillin-pot clavulanate 875-125 mg 1 tab PO BID 14 tabs 0RF Discontinued levofloxacin take 1 tablet day before procedure, 1 tablet day of procedure and 1 tablet day after procedure Discontinued Reason: Patient Completed Course 500 mg PO daily 3 days 3 tabs 0RF Patient Instructions: The patient had an opportunity to ask questions regarding treatment plan. The patient expressed understanding and agreement with the above treatment plan. The patient is aware they should contact our office by phone for worsening of their current condition or the appearance of new symptoms. Compliance is encouraged with any medications and followup testing that is ordered. It is a privilege to be allowed the opportunity to participate in the urologic care of your patient. If you have any questions or concerns regarding treatment for the above conditions please do not hesitate to contact me. The office telephone contact is [phone]. This note is constructed in part using voice recognition software. While every effort has been made to ensure accuracy computed tomography scanner operator errors may have been included. Yours sincerely, Blayne Beltrán MD Coding Level of Care Code Est Pt Level 4 (06299) Diagnoses Elevated prostate specific antigen (PSA) R97.20 Benign prostatic hyperplasia with weak urinary stream N40.1; R39.12 Lower urinary tract symptom detail: weak urinary stream
== END 2024-05-07 13:58 | disposition home or self-care (01) ==
PROVIDERS: PCP Internal Medicine; Visit Provider Urology
DX: R97.20 Elevated prostate specific antigen [PSA] (principal); N40.1 Benign prostatic hyperplasia with lower urinary tract symptoms; R39.12 Poor urinary stream; Z13.9 Encounter for screening, unspecified
CPT/HCPCS: 99214

== ENCOUNTER 2024-06-26 10:07 | Outpatient (REF) | payer MEDICARE, SELFPAY ==
[2024-06-26 11:19] LABS: Urine Cytology See Pathology rpt
[2024-06-26 11:55] LABS: Appearance Urine Clear; Color Urine Yellow; Glucose Urine UA 100 mg/dL (Negative); Leukocyte Esterase Urine Negative (Negative); Nitrite Urine Negative (Negative); PH 5.5 (5.0-9.0); Urine Blood Negative (Negative); Urine Ketones Negative (Negative); Urine Protein Negative (Neg-Trace)
== END 2024-06-26 10:08 | disposition home or self-care (01) ==
LOC: HO.LAB 10:07
PROVIDERS: PCP Internal Medicine; Visit Provider Internal Medicine
DX: R30.0 Dysuria (principal); R31.1 Benign essential microscopic hematuria
CPT/HCPCS: 81003; 88112

== ENCOUNTER 2024-06-27 13:40 | Outpatient (AMB) | payer MEDICARE, SELFPAY ==
[2024-06-27 14:01] VITALS: BP 120/74; PULSE 84; O2SAT 99; BMI 28.1
--- NOTE | 2024-06-27 14:01 | MHC.PC.OV ---
Vital Signs 06/27/24 14:01 Height 5 ft 7 in Weight 179 lb 2 oz BMI 28.1 BP 120/74 Blood Pressure Location Lt brachial Position Sitting Pulse 84 Pulse Source Pulse Oximeter Pulse Oximetry (%) 99 Oxygen Delivery Method Room Air Intake Visit Reasons: Blood in urine Speeder Tender Required: No Accompanied by: Self / Same As Patient Allergies No Known Allergies Allergy (Verified 06/27/24 14:32) Medication List - Last Reconciled 06/27/24 by John Dumont MD atorvastatin 20 mg PO DAILY 90 days blood sugar diagnostic (OneTouch Ultra Test strips) USE TO CHECK BLOOD SUGAR ONCE DAILY dutasteride (Avodart) 0.5 mg PO DAILY fluticasone furoate 27.5 mcg/actuation (Flonase Sensimist) 2 sprays intranasal DAILY glimepiride 2 mg PO QAM 30 days lancets As directed lancets ONE TOUCH ULTRA TEST STRIPS - use as directed - Dx: E11.9 -- Diabetes lisinopril 10 mg PO DAILY 90 days loratadine (Claritin) 10 mg PO DAILY magnesium oxide 400 mg PO BID metformin ER 1,000 mg (2 x 500 mg) PO BID 90 days Tobacco use date assessed: 06/27/24 Fall risk assessment: 2 + Falls in past year Last assessed Fall Risk: 06/27/24 Dental Screening Dental Screen Date: 06/27/24 Did you have a dental visit in the last 12 months?: Yes Did you have a dental problem in the last 6 months where you did not have access to dental care?: No Was dental information given to patient?: Patient has dentist HPI Blood in urine HPI Details Patient comes in today for evaluation of recurrent blood in his urine recently Relates that he first noticed increased blood in his urine about 2 days ago and that there were some clots seen in his urine He describes having no pain when he is urinating States that he stopped seeing blood in his urine for a while but it again restarted a few hours later States that he stopped seeing blood again in his urine last night and his symptoms have not recurred since States that he is not taking any blood thinners and denies taking any OTC Aspirin or NSAIDs He recalls that he was very constipated about 2 to 3 days ago and had to strain more than usual during bowel movements at the time but is not sure if this has anything to do with his current issues He denies any dizziness or headaches Denies any chest pains, no SOB No nausea/vomiting, no abdominal pain or flank pains noted No change in bowel habits noted He was sent for a urinalysis yesterday for further evaluation and his U/A showed no presence of blood or RBCs in his urine [facility] Medical History Benign prostatic hyperplasia with lower urinary tract symptoms Degenerative joint disease of right knee Overweight (BMI 25.0-29.9) Diabetes mellitus Pure hypercholesterolemia Benign essential hypertension Congenital absence of left testicle Surgical History History of colonoscopy (~06/13/22) Hx of rotator cuff surgery Family History Father Prostate cancer Colon cancer Mother Alzheimer's dementia Social History Housing: House Alcohol intake: current Alcohol intake frequency: a few times a week Alcohol type: beer Patient Tobacco Use Status: Former Tobacco user Tobacco use type: Cigarette e-Cigarette/Vaping Use: Never Used Second Hand Smoke Exposure: Yes service: Yes Current occupational status: retired Cognitive needs: No Hearing needs: Yes Vision needs: Yes Questionnaire PHQ-9 Over the last 2 weeks, how often have you been bothered by any of the following problems? 1. Little interest or pleasure in doing things: not at all 2. Feeling down, depressed, or hopeless: not at all 3. Trouble falling or staying asleep, or sleeping too much: not at all 4. Feeling tired or having little energy: not at all 5. Poor appetite or overeating: not at all 6. Feeling bad about yourself - or that you are a failure or have let yourself or your family down: not at all 7. Trouble concentrating on things, such as reading the newspaper or watching television: not at all 8. Moving or speaking so slowly that other people could have noticed. Or the opposite - being so fidgety or restless that you have been moving around a lot more than usual: not at all 9. Thoughts that you would be better off or of hurting yourself in some way: not at all Total score: 0 Depression Screening Interpretation: Negative Depression Screening Done: Yes 76283 - PHQ-9 Billing: Yes Source: Developed by Drs. Tobin Diaz, Carleen Burton, Rock Toro and colleagues, with an educational blas from [employer]. Thrive Questionnaire Date Thrive assessed: 06/27/24 I am a: Patient What is your living situation today?: I have a steady place to live Within the past 12 months, did the food you bought not last and you didn't have the money to get more?: Never true Within the past 12 months, did you worry whether your food would run out before you got money to buy more?: Never true Do you have trouble paying for medicines?: No Do you have trouble getting transportation to medical appointments?: No Do you have trouble paying your heating and electricity bill?: No Do you have trouble taking care of your child, family member or friend?: No Do you have trouble with day-to-day activities such as bathing, preparing meals, shopping, managing finances, etc.?: No Are you currently unemployed and looking for a job?: No Are you interested in more education?: No Please select the resources that you would like help with: None Currently or been in a relationship where the following occur: No concerns reported THRIVE Score: 0 AUDIT C Alcohol Use Questionnaire (AUDIT-C) 1. How often do you have a drink containing alcohol?: 2-3 times a week 2. How many drinks containing alcohol do you have on a typical day when you are drinking?: 1 or 2 3. How often do you have six or more drinks on one occasion?: Never Total Score: 3 Score Reviewed/Action Taken: Yes STACY-7 AMB Questionnaire STACY-7 Date STACY - 7 assessed: 06/27/24 Feeling nervous, anxious, or on edge: 0 = Not at all Not being able to stop or control worryin = Not at all Worrying too much about different things: 0 = Not at all Trouble relaxin = Not at all Being so restless that it is hard to sit still: 0 = Not at all Becoming easily annoyed or irritable: 0 = Not at all Feeling afraid as if something awful might happen: 0 = Not at all Total STACY-7 score (0-4 normal; 5-9 mild; 10-14 moderate; 15-21 severe): 0 Source: Developed by Drs. Tobin Diaz, Carleen Burton, Rock Toro and colleagues, with an educational blas from [employer]. Review of Systems Const Denies chills, Denies fatigue, Denies fever(s) and Denies headache(s) ENT Denies dizziness, Denies headache(s), Denies neck pain and Denies sore throat Card Denies chest pain, Denies palpitations and Denies dyspnea Resp Denies cough and Denies dyspnea GI Denies abdominal pain, Denies hematochezia, Denies diarrhea, Denies nausea and Denies vomiting Reports hematuria (on and off - see HPI), Denies dysuria, Denies nocturia and Denies urinary frequency Musc Denies back pain and Denies neck pain Skin/Breast Denies rash Neuro Denies dizziness and Denies headache(s) Endo Denies fatigue and Denies palpitations Physical exam (Primary Care) Vital Signs: Last Vital Signs Pulse 84 06/27/24 14:01 BP 120/74 06/27/24 14:01 Pulse Ox 99 06/27/24 14:01 Oxygen Delivery Method Room Air 06/27/24 14:01 BMI result Body Mass Index 28.1 Tobacco/Smoking Status: Tobacco use Status Tobacco use date assessed 06/27/24 06/27/24 14:02 Patient Tobacco Use Status Former Tobacco user 06/27/24 14:02 Tobacco use type Cigarette 06/27/24 14:02 e-Cigarette/Vaping Use Never Used 06/27/24 14:02 PHQ-9: PHQ-9 Score PHQ-9: Total score 0 06/27/24 14:29 Depression Screening Interpretation: Negative Thrive Assessment: Date of Thrive Assessment Date Thrive assessed 06/27/24 06/27/24 14:02 Currently or been in a relationship where the following occur: No concerns reported Const General: no acute distress and alert HENMT Throat: Yes posterior oropharynx normal and Yes tonsils normal (no TP congestion) Neck Neck: Yes no lymphadenopathy and Yes supple Thyroid: Thyroid normal Resp Auscultation: clear to auscultation bilaterally, no rales and no wheezes Cardio Rate: regular rate Rhythm: regular rhythm Heart sounds: no murmurs GI Palpation (GI): Soft to palpation and nontender Auscultation: normal bowel sounds General: Yes no CVA tenderness Back/Spine/Pelvis Back: no CVA tenderness Thoracic/Lumbar Spine: thoracic and lumbar spine normal to inspection Skin Rashes: no rashes Extrem General: Yes no clubbing, cyanosis or edema Results Reviewed Results Reviewed: Laboratory Tests 06/26/24 10:26 Urine Color Yellow Urine Appearance Clear Urine pH 5.5 Ur Specific [place] 1.010 Urine Protein Negative Urine Glucose (UA) 100 H Urine Blood Negative Urine Nitrite Negative Ur Leukocyte Esterase Negative Coding Level of Care Code Est Pt Level 3 (78617) Diagnoses Gross hematuria R31.0 Hematuria type: gross Additional Codes PHQ-9 - 16397 - PHQ-9 Billing: Yes ([id number]) Assessment & Plan Assessment & Plan (1) Hematuria: Code(s): R31.9 - Hematuria, unspecified Category: Medical Qualifiers: Hematuria type: gross Qualified Code(s): R31.0 - Gross hematuria Plan: His urinalysis done yesterday came back normal, with no RBCs or blood seen Urine cytology is still pending at this time Will send him for renal and urinary bladder US RACH for further evaluation Plan To return as scheduled next month for his annual physical examination Orders: Orders US renal BI 06/27/24 R31.9 - Hematuria, unspecified US bladder 06/27/24 R31.9 - Hematuria, unspecified Comprehensive [place]. Panel Fast 07/19/24 E78.00 - Pure hypercholesterolemia, unspecified, Z00.00 - Encounter for general adult medical examination without abnormal findings Lipid Panel 07/19/24 E78.00 - Pure hypercholesterolemia, unspecified, Z00.00 - Encounter for general adult medical examination without abnormal findings Microalbumin, Random (w Creat) 07/19/24 E11.9 - Type 2 diabetes mellitus without complications, Z00.00 - Encounter for general adult medical examination without abnormal findings UA CC w/rflx Micro + Cult 07/19/24 R30.0 - Dysuria, Z00.00 - Encounter for general adult medical examination without abnormal findings Complete Blood Count Auto Diff 07/19/24 D64.9 - Anemia, unspecified, Z00.00 - Encounter for general adult medical examination without abnormal findings Hemoglobin A1c 07/19/24 E11.9 - Type 2 diabetes mellitus without complications, Z00.00 - Encounter for general adult medical examination without abnormal findings TSH reflex Free T4 07/19/24 E78.00 - Pure hypercholesterolemia, unspecified, Z00.00 - Encounter for general adult medical examination without abnormal findings Vitamin D 25-OH Total 07/19/24 E55.9 - Vitamin D deficiency, unspecified, Z00.00 - Encounter for general adult medical examination without abnormal findings
== END 2024-06-27 14:42 | disposition home or self-care (01) ==
PROVIDERS: PCP Internal Medicine; Visit Provider Internal Medicine
DX: R31.0 Gross hematuria (principal)

== ENCOUNTER → 2024-06-27 13:40 | Outpatient (BNVA) | payer MEDICARE, SELFPAY | PROVIDERS: PCP Internal Medicine; Visit Provider Internal Medicine | DX: R31.0 Gross hematuria (principal) | CPT/HCPCS: 96127; 99212 ==

== ENCOUNTER 2024-07-09 15:43 | Outpatient (REF) | payer MEDICARE, SELFPAY | END 2024-07-09 15:44 | disposition home or self-care (01) | LOC: HO.US 15:43 | PROVIDERS: PCP Internal Medicine; Visit Provider Internal Medicine | DX: R31.9 Hematuria, unspecified (principal) | CPT/HCPCS: 76770 ==

== ENCOUNTER 2024-07-24 10:20 | Outpatient (REF) | payer MEDICARE, SELFPAY ==
[2024-07-24 10:35] LABS: MANUAL DIFF FLAG NO
[2024-07-24 11:48] LABS: Basophils Percent Auto 0.6 % (0-2); Eosinophils Absolute Auto 0.5 X10*3/uL (0.0-0.4); Eosinophils Percent Auto 7.6 % (0-4); Hematocrit 44.2 % (42.0-52.0); Hemoglobin 14.6 g/dl (14.0-18.0); Imm Gran Abs Auto 0.02 X10*3/uL (0.00-0.03); Imm Gran Pct Auto 0.3 % (0.0-0.4); Lymphocytes Absolute Auto 2.9 X10*3/uL (1.2-4.9); Lymphocytes Percent Auto 44.3 % (20-40); Mean Corpuscular Hemoglobin 28.8 pg (27.0-33.0); Mean Corpuscular Volume 87.2 fL (80.0-98.0); Mean Platelet Volume 10.1 fL (9.4-12.4); Monocytes Absolute Auto 0.5 X10*3/uL (0.1-1.2); Neutrophils Absolute Auto 2.7 x10*3/uL (2.0-8.3); Neutrophils Percent Auto 40.2 % (45-73); Platelet Count 251 X10*3/uL (160-400); Red Blood Count 5.07 X10*6/uL (4.60-5.80); Red Cell Distribution Width 12.3 % (11.0-16.0); White Blood Count 6.6 X10*3/uL (4.8-10.8)
[2024-07-24 11:54] LABS: Estimated Average Glucose 143 mg/dL; Hemoglobin A1C 184.7303 umol/L; Hemoglobin A1c % 6.6 % (<6.0); Total Hemoglobin (HGBA1C) 3794.9979 umol/L
[2024-07-24 12:21] LABS: Appearance Urine Clear; Color Urine Yellow; Glucose Urine UA Negative (Negative); Leukocyte Esterase Urine Negative (Negative); Nitrite Urine Negative (Negative); Specific Gravity - Urine <= 1.005 (1.005-1.025); Urine Blood Negative (Negative); Urine Ketones Negative (Negative); Urine Protein Negative (Neg-Trace)
[2024-07-24 12:30] LABS: Alanine Aminotransferase 23 U/L (0-40); Albumin Level 4.1 g/dL (3.5-5.0); Alkaline Phosphatase 83 U/L (39-117); Anion Gap 8 (12-20); Aspartate Amino Transferase 20 U/L (5-37); Bilirubin Total 0.6 mg/dL (0.0-1.0); Blood Urea Nitrogen 12 mg/dL (9-16); Calcium 9.8 mg/dL (8.4-10.2); Carbon Dioxide 31 mmol/L (22-29); Chloride 104 mmol/L (96-108); Cholesterol 193 mg/dL (<200); Estimated Glomerular Filt Rate > 60; Glucose Fasting 150 mg/dL (60-99); HDL Cholesterol 36 mg/dL (>40); LDL Cholesterol Calculated 130 mg/dL (<100); Potassium 4.3 mmol/L (3.3-5.1); Sodium 139 mmol/L (135-145); Total Protein 7.4 g/dL (6.5-8.0); Triglycerides 135 mg/dL (<150)
[2024-07-24 12:47] LABS: Creatinine Urine 43.24 mg/dL; Microalbumin Urine < 5.0 mg/L
[2024-07-24 12:48] LABS: Vitamin D 25-OH Total 23.9 ng/mL (>30)
== END 2024-07-24 10:21 | disposition home or self-care (01) ==
LOC: HO.LAB 10:20
PROVIDERS: PCP Internal Medicine; Visit Provider Internal Medicine
DX: Z00.00 Encounter for general adult medical examination without abnormal findings (principal); E11.9 Type 2 diabetes mellitus without complications; E55.9 Vitamin D deficiency, unspecified; E78.00 Pure hypercholesterolemia, unspecified; D64.9 Anemia, unspecified; R30.0 Dysuria
CPT/HCPCS: 36415; 80053; 80061; 81003; 82306; 82570; 83036; 84443; 85025

== ENCOUNTER 2024-07-28 13:01 | Outpatient (AMB) | payer MEDICARE, SELFPAY ==
[2024-07-28 13:19] VITALS: BP 136/76; PULSE 62; O2SAT 97; BMI 28.1
--- NOTE | 2024-07-28 13:19 | A.OFFPC_ITS ---
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: No Accompanied by: Self / Same As Patient Allergies No Known Allergies Allergy (Verified 07/28/24 13:44) Medication List - Last Reconciled 07/28/24 by John Dumont MD atorvastatin 20 mg PO DAILY 90 days blood sugar diagnostic (OneTouch Ultra Test strips) USE TO CHECK BLOOD SUGAR ONCE DAILY dutasteride (Avodart) 0.5 mg PO DAILY fluticasone furoate 27.5 mcg/actuation (Flonase Sensimist) 2 sprays intranasal DAILY glimepiride 2 mg PO QAM 30 days lancets As directed lancets ONE TOUCH ULTRA TEST STRIPS - use as directed - Dx: E11.9 -- Diabetes lisinopril 10 mg PO DAILY 90 days loratadine (Claritin) 10 mg PO DAILY magnesium oxide 400 mg PO BID metformin ER 1,000 mg (2 x 500 mg) PO BID 90 days Tobacco use date assessed: 07/28/24 Fall risk assessment: 1 Fall in past year Last assessed Fall Risk: 07/28/24 Dental Screening Dental Screen Date: 07/28/24 Did you have a dental visit in the last 12 months?: No Did you have a dental problem in the last 6 months where you did not have access to dental care?: No Was dental information given to patient?: Patient has dentist HPI annual exam HPI Details Patient comes in today for his annual physical examination States that his right knee continues to bother him a lot - recalls that he fell on his knee while playing pickleball this past summer and states that his right knee was swollen and he was in pain for a while after he hurt his knee States that he just wore a knee brace on his knee and managed his injury on his own for a while but did not seek any medical attention for his knee but would now like to have his knee checked out due to his lingering knee pain - feels that the pain has been getting worse lately Relates that he has also noticed a 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 States that he feels okay otherwise He denies any headaches or dizziness Denies any chest pains, no SOB No nausea/vomiting, no abdominal pain No change in bowel habits noted He denies any acute urinary symptoms He is up-to-date with his colon cancer screening - will be due for repeat colonoscopy in 2026 He had his follow up labs done a few days ago - to discuss his results [facility] Medical History Benign prostatic hyperplasia with lower urinary tract symptoms Degenerative joint disease of right knee Overweight (BMI 25.0-29.9) Diabetes mellitus Pure hypercholesterolemia Benign essential hypertension Congenital absence of left testicle Surgical History History of colonoscopy (~06/13/22) Hx of rotator cuff surgery Family History Father Prostate cancer Colon cancer Mother Alzheimer's dementia Social History Housing: House Alcohol intake: current Alcohol intake frequency: a few times a week Alcohol type: beer Patient Tobacco Use Status: Former Tobacco user Tobacco use type: Cigarette e-Cigarette/Vaping Use: Never Used Second Hand Smoke Exposure: Yes service: Yes Current occupational status: retired Cognitive needs: No Hearing needs: Yes Vision needs: Yes Questionnaire PHQ-9 Over the last 2 weeks, how often have you been bothered by any of the following problems? 1. Little interest or pleasure in doing things: not at all 2. Feeling down, depressed, or hopeless: not at all 3. Trouble falling or staying asleep, or sleeping too much: not at all 4. Feeling tired or having little energy: not at all 5. Poor appetite or overeating: not at all 6. Feeling bad about yourself - or that you are a failure or have let yourself or your family down: not at all 7. Trouble concentrating on things, such as reading the newspaper or watching television: not at all 8. Moving or speaking so slowly that other people could have noticed. Or the opposite - being so fidgety or restless that you have been moving around a lot more than usual: not at all 9. Thoughts that you would be better off or of hurting yourself in some way: not at all Total score: 0 Depression Screening Interpretation: Negative Depression Screening Done: Yes 65522 - PHQ-9 Billing: Yes Source: Developed by Drs. Tobin Diaz, Carleen Burton, Rock Toro and colleagues, with an educational blas from [employer]. Thrive Questionnaire Date Thrive assessed: 07/28/24 I am a: Patient What is your living situation today?: I have a steady place to live Within the past 12 months, did the food you bought not last and you didn't have the money to get more?: Never true Within the past 12 months, did you worry whether your food would run out before you got money to buy more?: Never true Do you have trouble paying for medicines?: No Do you have trouble getting transportation to medical appointments?: No Do you have trouble paying your heating and electricity bill?: No Do you have trouble taking care of your child, family member or friend?: No Do you have trouble with day-to-day activities such as bathing, preparing meals, shopping, managing finances, etc.?: No Are you currently unemployed and looking for a job?: No Are you interested in more education?: No Please select the resources that you would like help with: None Currently or been in a relationship where the following occur: No concerns reported THRIVE Score: 0 AUDIT C Alcohol Use Questionnaire (AUDIT-C) 1. How often do you have a drink containing alcohol?: Monthly or less 2. How many drinks containing alcohol do you have on a typical day when you are drinking?: 1 or 2 3. How often do you have six or more drinks on one occasion?: Never Total Score: 1 Score Reviewed/Action Taken: Yes STACY-7 AMB Questionnaire STACY-7 Date STACY - 7 assessed: 07/28/24 Feeling nervous, anxious, or on edge: 0 = Not at all Not being able to stop or control worryin = Not at all Worrying too much about different things: 0 = Not at all Trouble relaxin = Nearly every day Being so restless that it is hard to sit still: 0 = Not at all Becoming easily annoyed or irritable: 0 = Not at all Feeling afraid as if something awful might happen: 0 = Not at all Total STACY-7 score (0-4 normal; 5-9 mild; 10-14 moderate; 15-21 severe): 3 Source: Developed by Drs. Tobin Diaz, Carleen Burton, Rock Toro and colleagues, with an educational blas from [employer]. Review of Systems Const Denies chills, Denies fatigue, Denies fever(s), Denies headache(s), Denies malaise and Denies weakness Eyes Denies blurry vision, Denies change in vision, Denies irritation and Denies itchy eyes ENT Denies dysphagia, Denies dizziness, Denies otalgia, Denies headache(s), Denies nasal congestion, Denies neck pain, Denies odynophagia and Denies sore throat Card Denies chest pain, Denies rapid heart rate, Denies irregular heart rhythm, Denies palpitations and Denies dyspnea Resp Denies chest congestion, Denies cough, Denies dyspnea and Denies wheezing GI Denies abdominal pain, Denies bloating, Denies constipation, Denies dysphagia, Denies heartburn, Denies diarrhea, Denies nausea, Denies odynophagia and Denies vomiting Denies hematuria, Denies difficulty urinating, Denies dysuria, Denies urinary frequency and Denies urinary urgency Musc Denies back pain, Reports arthralgias (over the right knee - knee feels swollen at times), Denies muscle weakness and Denies neck pain Skin/Breast Denies change in pigmentation, Denies lesions, Denies rash and Denies unusual bruising Neuro Denies dizziness, Denies headache(s), Denies paresthesias and Denies weakness Endo Denies fatigue and Denies palpitations Aller/Immun Denies itchy eyes and Denies wheezing Physical exam (Primary Care) Vital Signs: Last Vital Signs Pulse 62 07/28/24 13:19 BP 136/76 07/28/24 13:19 Pulse Ox 97 07/28/24 13:19 Oxygen Delivery Method Room Air 07/28/24 13:19 BMI result Body Mass Index 28.1 Tobacco/Smoking Status: Tobacco use Status Tobacco use date assessed 07/28/24 07/28/24 13:25 Patient Tobacco Use Status Former Tobacco user 07/28/24 13:25 Tobacco use type Cigarette 07/28/24 13:25 e-Cigarette/Vaping Use Never Used 07/28/24 13:25 PHQ-9: PHQ-9 Score PHQ-9: Total score 0 07/28/24 13:47 Depression Screening Interpretation: Negative Thrive Assessment: Date of Thrive Assessment Date Thrive assessed 07/28/24 07/28/24 13:25 Currently or been in a relationship where the following occur: No concerns reported Const General: no acute distress, alert and awake Orientation/consciousness: patient oriented x3 HENMT Head: Yes normocephalic and Yes atraumatic Ears: external ears normal, TM's normal bilaterally and EAC's normal General nose exam: No nasal discharge present Face and sinus: Yes normal facial exam and Yes sinuses nontender Teeth and gingiva: dentition normal Throat: Yes posterior oropharynx normal and Yes tonsils normal (no TP congestion) Eyes Eyelids: Yes eyelids normal Conjunctivae: conjunctivae normal Pupils: Equal, round and reactive pupils present EOM: EOMs intact bilaterally Neck Neck: Yes no lymphadenopathy and Yes supple Thyroid: Thyroid normal Resp Auscultation: clear to auscultation bilaterally, no rales and no wheezes Cardio Rate: regular rate Rhythm: regular rhythm Heart sounds: no murmurs GI Palpation (GI): Soft to palpation, nontender and No hepatosplenomegaly present Auscultation: normal bowel sounds General: Yes no CVA tenderness Back/Spine/Pelvis Back: no CVA tenderness Thoracic/Lumbar Spine: thoracic and lumbar spine normal to inspection Skin Lesions: no lesions Rashes: no rashes Neuro General: patient oriented x3, moves all extremities, no focal motor deficits and CN's II-XI intact bilaterally Cranial nerves: Yes Equal, round and reactive pupils present Cognition (Neuro): normal cognition Gait exam (Neuro): Normal gait present Extrem General: Yes no clubbing, cyanosis or edema Right lower extremity: knee Details: tenderness Location: of the popliteal fossa and of the medial joint line; no swelling Results Reviewed Results Reviewed: Laboratory Tests 05/07/24 07/24/24 07/24/24 13:33 10:30 10:33 WBC 6.6 Hgb 14.6 Hct 44.2 Plt Count 251 Sodium 139 Potassium 4.3 Creatinine 0.87 Estimated GFR > 60 Fasting Glucose 150 H Hemoglobin A1c % 6.6 H Calcium 9.8 AST 20 ALT 23 Triglycerides 135 Cholesterol 193 LDL Cholesterol, Calc 130 H HDL Cholesterol 36 L 25-OH Vitamin D Total 23.9 L TSH 1.30 Specific [place] (Auto) 1.020 Ur Specific [place] <= 1.005 Urine Protein Negative Urine Glucose (UA) Negative Urine Blood Negative Urine Nitrite Negative Ur Leukocyte Esterase Negative Coding Level of Care Code Est Pt Prev Care >65y(18897) Diagnoses Annual physical exam Z00.00 Pure hypercholesterolemia E78.00 Type 2 diabetes mellitus with hyperglycemia, without long-term current use of insulin E11.65 Diabetes mellitus complication status: with hyperglycemia Diabetes mellitus retirement insulin use: without termite treater use Diabetes mellitus type: type 2 Benign essential hypertension I10 Right knee pain, unspecified chronicity M25.561 Chronicity: unspecified Elevated prostate specific antigen (PSA) R97.20 Benign prostatic hyperplasia with weak urinary stream N40.1; R39.12 Lower urinary tract symptom detail: weak urinary stream Nocturnal leg cramps G47.62 Constipation, unspecified constipation type K59.00 Constipation type: unspecified constipation type Overweight (BMI 25.0-29.9) E66.3 Additional Codes PHQ-9 - 12020 - PHQ-9 Billing: Yes ([id number]) Assessment & Plan Assessment & Plan (1) Annual physical exam: Code(s): Z00.00 - Encounter for general adult medical examination without abnormal findings Category: Medical Plan: Results of his labs done a few days ago reviewed and discussed with patient He is up-to-date with his colon cancer screening - will be due for repeat colonoscopy in 2026 (2) Pure hypercholesterolemia: Code(s): E78.00 - Pure hypercholesterolemia, unspecified Category: Medical Plan: Results of his labs done a few days ago reviewed and discussed with patient Reinforced low cholesterol diet Continue Atorvastatin 20 mg QD Will recheck his labs and fasting lipids in 4 months for follow up (3) Diabetes mellitus: Code(s): E11.9 - Type 2 diabetes mellitus without complications Category: Medical Qualifiers: Diabetes mellitus complication status: with hyperglycemia Diabetes mellitus 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 treater insulin use: without retirement use Diabetes mellitus type: type 2 Qualified Code(s): E11.65 - Type 2 diabetes mellitus with hyperglycemia Plan: HgbA1c was at 6.6% on his labs done a few days ago (his in-office HgbA1c was previously at 7.8% a few months ago) - goal is at least <7.0% Reinforced diabetic diet Per request, he was referred to traveling electrician/dietitian for consultation Continue Metformin ER 500 mg 2 tablets (1000 mg) BID and Glimepiride 2 mg QD (4) Benign essential hypertension: Code(s): I10 - Essential (primary) hypertension Category: Medical Plan: Reinforced low sodium diet - goal is systolic BP of 120 mm or less Continue Lisinopril 10 mg QD (5) Right knee pain: Code(s): M25.561 - Pain in right knee Category: Medical Qualifiers: Chronicity: unspecified Qualified Code(s): M25.561 - Pain in right knee Plan: Will send patient for x-rays of the right knee for further evaluation Have advised patient that he may need to see orthopedics but we will see how his x-rays come out 1st (6) Elevated prostate specific antigen (PSA): Code(s): R97.20 - Elevated prostate specific antigen [PSA] Category: Medical Plan: He is advised that his PSA was also elevated on his labs done back in June 2023 Follow up with urology as scheduled (7) Benign prostatic hyperplasia with lower urinary tract symptoms: Code(s): N40.1 - Benign prostatic hyperplasia with lower urinary tract symptoms Category: Medical Qualifiers: Lower urinary tract symptom detail: weak urinary stream Qualified Code(s): N40.1 - Benign prostatic hyperplasia with lower urinary tract symptoms; R39.12 - Poor urinary stream Plan: (+) Hx of BPH Continue Dutasteride 0.5 mg QD Follow up with urology as scheduled (8) Nocturnal leg cramps: Code(s): G47.62 - Sleep related leg cramps Category: Medical Plan: Continue Mag Ox 400 mg BID (9) Constipation: Code(s): K59.00 - Constipation, unspecified Category: Medical Qualifiers: Constipation type: unspecified constipation type Qualified Code(s): K59.00 - Constipation, unspecified Plan: He is again encouraged on increased oral fluids and dietary fiber May continue taking OTC stool softeners as needed (10) Overweight (BMI 25.0-29.9): Code(s): E66.3 - Overweight Category: Medical Plan: Reinforced diet; exercise and weight loss are not practical at this time due to patient's right knee issues Plan Follow up in 4 months Orders: Orders XR knee RT 4V 07/28/24 M25.561 - Pain in right knee Comprehensive [place]. Panel Fast 4 Months E78.00 - Pure hypercholesterolemia, unspecified Complete Blood Count Auto Diff 4 Months D64.9 - Anemia, unspecified Microalbumin, Random (w Creat) 4 Months E11.9 - Type 2 diabetes mellitus without complications TSH reflex Free T4 4 Months E78.00 - Pure hypercholesterolemia, unspecified Lipid Panel 4 Months E78.00 - Pure hypercholesterolemia, unspecified Hemoglobin A1c 4 Months E11.9 - Type 2 diabetes mellitus without complications UA CC w/rflx Micro + Cult 4 Months R30.0 - Dysuria Vitamin D 25-OH Total 4 Months E55.9 - Vitamin D deficiency, unspecified
== END 2024-07-28 13:58 | disposition home or self-care (01) ==
PROVIDERS: PCP Internal Medicine; Visit Provider Internal Medicine
DX: Z00.00 Encounter for general adult medical examination without abnormal findings (principal); E78.00 Pure hypercholesterolemia, unspecified; E11.65 Type 2 diabetes mellitus with hyperglycemia; I10 Essential (primary) hypertension; M25.561 Pain in right knee; R97.20 Elevated prostate specific antigen [PSA]; N40.1 Benign prostatic hyperplasia with lower urinary tract symptoms; R39.12 Poor urinary stream; G47.62 Sleep related leg cramps; K59.00 Constipation, unspecified; E66.3 Overweight

== ENCOUNTER → 2024-07-28 13:01 | Outpatient (BNVA) | payer MEDICARE, SELFPAY | PROVIDERS: PCP Internal Medicine; Visit Provider Internal Medicine | DX: Z00.00 Encounter for general adult medical examination without abnormal findings (principal); M25.561 Pain in right knee; E78.00 Pure hypercholesterolemia, unspecified; E11.65 Type 2 diabetes mellitus with hyperglycemia; I10 Essential (primary) hypertension; R97.20 Elevated prostate specific antigen [PSA]; N40.1 Benign prostatic hyperplasia with lower urinary tract symptoms; R39.12 Poor urinary stream; G47.62 Sleep related leg cramps; K59.00 Constipation, unspecified; E66.3 Overweight; D64.9 Anemia, unspecified; R30.0 Dysuria; E55.9 Vitamin D deficiency, unspecified; Z68.28 Body mass index [BMI] 28.0-28.9, adult; Z91.81 History of falling; Z87.891 Personal history of nicotine dependence | CPT/HCPCS: 96127; 99397 ==

== ENCOUNTER 2024-09-16 09:13 | Outpatient (REF) | payer MEDICARE, SELFPAY ==
[2024-09-16 11:08] LABS: PSA,Total (Free>4and<10) 6.47 ng/mL (0.00-4.00)
[2024-09-17 12:43] LABS: Percent Free Prostate Spec Ag 15 % (calc) (>25); Prostate Specific Ag Total 6.6 ng/mL (< OR = 4.0)
== END 2024-09-16 09:14 | disposition home or self-care (01) ==
LOC: HO.LAB 09:13
PROVIDERS: Urology; PCP Internal Medicine; Visit Provider Internal Medicine
DX: R97.20 Elevated prostate specific antigen [PSA] (principal); Z12.5 Encounter for screening for malignant neoplasm of prostate
CPT/HCPCS: 36415; 84153; 84154

== ENCOUNTER 2024-10-27 07:40 | Outpatient (AMB) | payer MEDICARE, SELFPAY ==
--- NOTE | 2024-10-27 08:23 | A.OFFVIS_ITS ---
Intake Visit Reasons: 6m/PSA Allergies No Known Allergies Allergy (Verified 07/28/24 13:44) Medication List - Last Reconciled 10/27/24 by Blayne Beltrán MD atorvastatin 20 mg PO DAILY 90 days blood sugar diagnostic (OneTouch Ultra Test strips) USE TO CHECK BLOOD SUGAR ONCE DAILY fluticasone furoate 27.5 mcg/actuation (Flonase Sensimist) 2 sprays intranasal DAILY glimepiride 2 mg PO QAM 30 days lancets As directed lancets ONE TOUCH ULTRA TEST STRIPS - use as directed - Dx: E11.9 -- Diabetes lisinopril 10 mg PO DAILY 90 days loratadine (Claritin) 10 mg PO DAILY magnesium oxide 400 mg PO BID metformin ER 1,000 mg (2 x 500 mg) PO BID 90 days HPI Comments Details: 10/27/24-- Sotero is a 69-year-old male presenting with an elevated PSA. His initial PSA reading was 5.7 ng/mL on January 15, 2024, which led to a prostate biopsy on April 25, 2024. The biopsy results were benign, and his estimated prostate volume was greater than 100 mL. The patient was prescribed Avodart, which he took for a month before discontinuing due to concerns regarding potential sexual dysfunction. As of September 16, 2024, his PSA has increased to 6.47 ng/mL. He reports no pain or issues with urination, awakening once or twice at night to urinate, and remains active in lifestyle. Urinary Symptoms Review - Wakes once or twice at night to urinate - No pain or issues with urination reported Results - Tests: Elevated PSA of 6.47 ng/mL as of September 16, 2024 - Prior Biopsy: Benign results, prostate volume > 100 mL 05/07/24--Sotero is here for FU s/p prostate bx 04/25/24. He states he has been getting up about 4 times at night since the prostate biopsy. Estimated prostate volume was 130 mL, which is likely overestimated, in review of his chart, US retroperitoneum in November, estimated prostate volume at 90 mL. The prostate volume is likely somewhere in between these numbers. I have reviewed pathology- benign tissue. Will empirically start Augmentin due to irritative urinary symptoms. Discussed initiate avodart. Follow-up in 4 months PSA prior. 03/12/24--Sotero is a pleasant 68-year-old male patient of Dr. Dumont. He has a past medical history of BPH with lower urinary tract symptoms, degenerative joint disease, diabetes, hypercholesteremia, hypertension, and congenital absence of left testicle. He presents to the office today as a new patient for an elevated PSA. Of note, patient was seen approximately 6 weeks ago at which time a retroperitoneal ultrasound was ordered and redraw of PSA. These results were reviewed with the patient today. Bilateral kidneys with no calculi, lesions, and or hydronephrosis noted. The bladder is well distended and normal. Pre void bladder volume is a proximally 420 mL. Postvoid bladder volume is approximately 180 mL. Prostate measures approximately 91 mL there is a prostatic impression upon the bladder base. PSAs are as follows: 01/01 3.9, 07/05 5.3, 02/03 5.9 % free PSA 12% PCPT risk calculator results reviewed with the patient today; 42% chance that prostate biopsy is negative for cancer, 39% chance of low-grade prostate cancer, and 19% chance of high-grade prostate cancer. Discussed at length potential causes of elevated PSA as well as further treatment options to include MRI of the prostate versus biopsy versus surveillance monitoring; risks and benefits of these interventions were discussed at length. In discussion with the patient today reports to be doing and feeling well. Reports previously following up with urologist Dr. Hardwick and undergoing TURP in the past due to urinary retention. He reports having experienced lower urinary tract symptoms previously when he had uncontrolled diabetes however since his diabetes has been controlled he has experienced no urinary issues. When asked he does report a family history of prostate cancer. He reports his dad in his late 50s from prostate cancer. He currently denies any bothersome urinary issues or concerns. 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 Discussed at length potential causes for elevated PSA. ALESSIA offered however deferred. In office urinalysis results reviewed with the patient today. He otherwise offers no other issues or concerns. [facility] Medical History Benign prostatic hyperplasia with lower urinary tract symptoms Degenerative joint disease of right knee Overweight (BMI 25.0-29.9) Diabetes mellitus Pure hypercholesterolemia Benign essential hypertension Congenital absence of left testicle Surgical History History of colonoscopy (~06/13/22) Hx of rotator cuff surgery Family History Father Prostate cancer Colon cancer Mother Alzheimer's dementia Social History Housing: House Alcohol intake: current Alcohol intake frequency: a few times a week Alcohol type: beer Patient Tobacco Use Status: Former Tobacco user Tobacco use type: Cigarette e-Cigarette/Vaping Use: Never Used Second Hand Smoke Exposure: Yes service: Yes Current occupational status: retired Cognitive needs: No Hearing needs: Yes Vision needs: Yes Review of Systems Const All systems reviewed & are unremarkable except as noted in HPI and below Reports no additional complaints Eyes Reports no additional complaints ENT Reports no additional complaints Card Reports no additional complaints Resp Reports no additional complaints GI Reports no additional complaints Reports as per HPI Musc Reports no additional complaints Skin/Breast Reports system reviewed and no additional complaints, except as documented Neuro Reports no additional complaints Psych Reports no additional complaints Endo Reports no additional complaints Zain/Lymph Reports no additional complaints Aller/Immun Reports no additional complaints Telehealth Telehealth Telehealth Platform: [facility] Location of provider rendering services: practice address Location of patient: address on file Patient Identification confirmed using: Name, : Yes Telehealth method: video Patient verbally consented to treatment: Yes Patient verbally consented to billing insurance company: Yes Patient informed of any privacy concerns related to visit: Yes Results Reviewed Results Reviewed: Collected: 04/25/24 Location: [facility] Received: 04/25/24 Diagnosis A. Prostate, left base lateral, needle core biopsy: Benign prostatic tissue. B. Prostate, left base medial, needle core biopsy: Benign prostatic tissue. C. Prostate, left mid lateral, needle core biopsy: Benign prostatic tissue. D. Prostate, left mid medial, needle core biopsy: Benign prostatic tissue. E. Prostate, left apex lateral, needle core biopsy: Benign prostatic tissue. F. Prostate, left apex medial, needle core biopsy: Benign prostatic tissue. G. Prostate, right base lateral, needle core biopsy: Benign prostatic tissue. H. Prostate, right base medial, needle core biopsy: Benign prostatic tissue. I. Prostate, right mid lateral, needle core biopsy: Benign prostatic tissue. J. Prostate, right mid medial, needle core biopsy: Benign prostatic tissue. K. Prostate, right apex lateral, needle core biopsy: Benign prostatic tissue. L. Prostate, right apex medial, needle core biopsy: Benign prostatic tissue. Clinical History Elevated PSA Microscopic Description Microscopic sections reviewed. Material Received A. Left base lateral B. Left base medial C. Left mid lateral D. Left mid medial E. Left apex lateral F. Left apex medial G. Right base lateral H. Right base medial I. Right mid lateral J. Right mid medial K. Right apex lateral L. Right apex medial Gross Description Received in twelve parts. Date of Service: 11/29/23 EXAMINATION: US RETROPERITONEAL COMPLETE (RENAL) FINDINGS: RIGHT KIDNEY: 10.5 x 6.9 x 6.7 cm (SAG x AP x TRV). The kidney is normal in size, contour, and echogenicity. Renal cortical thickness is normal. No calculi or focal parenchymal lesions. No hydronephrosis. LEFT KIDNEY: 10.2 x 6.7 x 5.4 cm (SAG x AP x TRV). The kidney is normal in size, contour, and echogenicity. Renal cortical thickness is normal. No calculi or focal parenchymal lesions. No hydronephrosis. BLADDER: Well distended and normal. Bilateral ureteral jets are demonstrated. Prevoid bladder volume is 418 mL. Postvoid bladder volume is 169 mL. ADDITIONAL FINDINGS: Prostate dimensions are 6.1 x 5.3 x 5.8 cm (volume 90.8 mL). There is a prostatic impression upon the bladder base. IMPRESSION: 1. Unremarkable ultrasound appearance of the kidneys. 2. There is an increased postvoid residual volume. 3. There is prostatomegaly. Assessment & Plan Assessment & Plan (1) Elevated prostate specific antigen (PSA): Code(s): R97.20 - Elevated prostate specific antigen [PSA] Category: Medical (2) Benign prostatic hyperplasia with lower urinary tract symptoms: Code(s): N40.1 - Benign prostatic hyperplasia with lower urinary tract symptoms Category: Medical Qualifiers: Lower urinary tract symptom detail: weak urinary stream Qualified Code(s): N40.1 - Benign prostatic hyperplasia with lower urinary tract symptoms; R39.12 - Poor urinary stream Plan Discussion Notes I have discussed with the patient the importance of monitoring his PSA levels closely, given the recent increase from 5.7 ng/mL to 6.47 ng/mL. Although his prostate biopsy previously returned benign, the necessity of an MRI has been advised to ensure no unidentified lesions are present. The patient was informed about the insurance approval process for the MRI and assured that the nurse will follow up with him regarding scheduling once approved. We also acknowledged potential concerns about the side effects of Avodart on sexual function, aligning on the importance of balancing treatment with quality of life. The plan for MRI and continued monitoring was agreed upon to address the elevated PSA comprehensively. Plan An MRI will be obtained to investigate the cause of the elevated PSA and rule out potential lesions in the prostate. The patient understands that the MRI is pending insurance approval. Once the results are available, further treatment and management strategies will be discussed, taking into consideration the patient's concerns about the side effects of medications like Avodart. Follow-up care will focus on evaluating the MRI findings to inform subsequent decisions about the patient's treatment and care. Orders: Orders MR Prostate wo/w con Today R97.20 - Elevated prostate specific antigen [PSA] Medications: Discontinued dutasteride (Avodart) Discontinued Reason: Patient Refused 0.5 mg PO DAILY 90 caps 2RF Patient Instructions: The patient had an opportunity to ask questions regarding treatment plan. The patient expressed understanding and agreement with the above treatment plan. The patient is aware they should contact our office by phone for worsening of their current condition or the appearance of new symptoms. Compliance is encouraged with any medications and followup testing that is ordered. It is a privilege to be allowed the opportunity to participate in the urologic care of your patient. If you have any questions or concerns regarding treatment for the above conditions please do not hesitate to contact me. The office telephone contact is [phone]. This note is constructed in part using voice recognition software. While every effort has been made to ensure accuracy crocheter hand errors may have been included. Yours sincerely, Blayne Beltrán MD Scribe Plan - Not visible on output: Patient was informed and verbally consented to the use of an ambient scribe for clinic note documentation during this visit. Coding Level of Care Code Tele New Pt Level 4 (46203) Diagnoses Elevated prostate specific antigen (PSA) R97.20 Benign prostatic hyperplasia with weak urinary stream N40.1; R39.12 Lower urinary tract symptom detail: weak urinary stream
== END 2024-10-27 10:30 | disposition home or self-care (01) ==
LOC: HO.HUSH 07:40
PROVIDERS: PCP Internal Medicine; Visit Provider Urology
DX: R97.20 Elevated prostate specific antigen [PSA] (principal); N40.1 Benign prostatic hyperplasia with lower urinary tract symptoms; R39.12 Poor urinary stream
CPT/HCPCS: 99214

== ENCOUNTER → 2024-10-27 07:40 | Outpatient (BNVA) | payer MEDICARE, SELFPAY | PROVIDERS: PCP Internal Medicine; Visit Provider Urology ==

== ENCOUNTER → 2024-11-05 09:00 | Outpatient (BNV) | payer MEDICARE, SELFPAY | PROVIDERS: PCP Internal Medicine; Visit Provider Radiology Diagnostic Radiology | DX: R97.20 Elevated prostate specific antigen [PSA] (principal) | CPT/HCPCS: 72197 ==

== ENCOUNTER 2024-11-05 09:05 | Outpatient (REF) | payer MEDICARE, SELFPAY ==
--- NOTE | ~2024-11-05 | MR_ITS ---
EXAMINATION: MR PROSTATE WITHOUT THEN WITH IV CONTRAST HISTORY: R97.20 - Elevated prostate specific antigen [PSA] TECHNIQUE: 1.5T body coil survey of the pelvis was performed. Phase array coil imaging of the prostate was performed in multiplanar high resolution axial, coronal, sagittal fast spin echo T2 and axial T1 weighted imaging sequences. Axial diffusion imaging at intermediate and high field performed with ADC mapping. Next, 8 mL Gadavist was given by intravenous infusion, and dynamic axial imaging performed. COMPARISON: There are no prior studies for comparison. CLINICAL DATA: Most recent PSA: 6.47 ng/mL on 09/16/2024 PSA Density: 0.064 ng/mL squared Prostate Biopsy: Negative biopsy on 04/25/2024. FINDINGS: Prostate size: 7.4 x 5.6 x 4.7 cm. Calculated prostate volume is 101.3 mL. Hemorrhage: None. Transitional Zone: There is marked heterogeneous nodular hypertrophy of the transitional zone with a prominent median lobe. Peripheral Zone: There is diffuse thinning of the peripheral zone. No discrete focus of abnormal signal intensity or restricted diffusion is identified. Seminal Vesicles/Ejaculatory Ducts: Symmetric and normal in signal and caliber. Pelvic Lymph Nodes: No obturator or internal iliac lymph nodes meeting size criteria for adenopathy. Marrow Signal: Normal marrow signal and enhancement without focal lesion identified. MR/MR Prostate wo/w con IMPRESSION: No discrete focus of abnormal signal intensity is identified to suggest clinically significant prostate carcinoma. PI-RADS 2: Low (clinically significant cancer is unlikely to be present) PI-RADS Assessment Categories PI-RADS 1: Very low (clinically significant cancer is highly unlikely to be present) PI-RADS 2: Low (clinically significant cancer is unlikely to be present) PI-RADS 3: Intermediate (the presence of clinically significant cancer is equivocal) PI-RADS 4: High (clinically significant cancer is likely to be present) PI-RADS 5: Very high (clinically significant cancer is highly likely to be present) [employer]. MR Prostate Imaging Reporting and Data System version 2.1. [email or web address] Electronically signed by: Tobin Estevez MD 11/05/2024 11:19 AM EDT
[2024-11-05] MEDS: gadobutroL 10 ML VIAL IVPUSH (10:14)
== END 2024-11-05 09:06 | disposition home or self-care (01) ==
LOC: HO.MRI 09:05
PROVIDERS: PCP Internal Medicine; Visit Provider Urology
DX: R97.20 Elevated prostate specific antigen [PSA] (principal)
CPT/HCPCS: 72197; A9585

== ENCOUNTER 2024-11-17 13:10 | Outpatient (AMB) | payer MEDICARE, SELFPAY ==
--- NOTE | 2024-11-17 13:23 | MHC.PC.OV ---
Vital Signs 11/17/24 13:24 Height 5 ft 7 in Weight 181 lb 8 oz BMI 28.4 BP 136/82 Blood Pressure Location Lt brachial Position Sitting Pulse 86 Pulse Source Pulse Oximeter Pulse Oximetry (%) 96 Oxygen Delivery Method Room Air Intake Visit Reasons: 4m follow up [employer] Required: No Accompanied by: Self / Same As Patient Allergies No Known Allergies Allergy (Verified 11/17/24 14:01) Medication List - Last Reconciled 11/17/24 by John Dumont MD atorvastatin 20 mg PO DAILY 90 days blood sugar diagnostic (OneTouch Ultra Test strips) USE TO CHECK BLOOD SUGAR ONCE DAILY fluticasone furoate 27.5 mcg/actuation (Flonase Sensimist) 2 sprays intranasal DAILY glimepiride 2 mg PO QAM 30 days lancets As directed lancets ONE TOUCH ULTRA TEST STRIPS - use as directed - Dx: E11.9 -- Diabetes lisinopril 10 mg PO DAILY 90 days loratadine (Claritin) 10 mg PO DAILY magnesium oxide 400 mg PO BID metformin ER 1,000 mg (2 x 500 mg) PO BID 90 days Tobacco use date assessed: 11/17/24 Fall risk assessment: 1 Fall in past year Last assessed Fall Risk: 11/17/24 Dental Screening Dental Screen Date: 11/17/24 Did you have a dental visit in the last 12 months?: No Did you have a dental problem in the last 6 months where you did not have access to dental care?: No Was dental information given to patient?: Patient has dentist HPI 4m follow up HPI Details Patient comes in today for his follow-up visit States that he has noticed a painful cyst behind his right knee recently Adds that he apparently strained his lower back while he was trying to lift something heavy last week - relates that he was experiencing increased pain over his lower back bilaterally for a few days but his back is starting to feel better now He denies any headaches or dizziness Denies any chest pains, no increased shortness of breath No nausea/vomiting, no abdominal pain No change in bowel habits noted He was not able to get his follow-up labs done prior to his appointment today - he will try to get them done [facility] Medical History Benign prostatic hyperplasia with lower urinary tract symptoms Degenerative joint disease of right knee Overweight (BMI 25.0-29.9) Diabetes mellitus Pure hypercholesterolemia Benign essential hypertension Congenital absence of left testicle Surgical History History of colonoscopy (~06/13/22) Hx of rotator cuff surgery Family History Father Prostate cancer Colon cancer Mother Alzheimer's dementia Social History Housing: House Alcohol intake: current Alcohol intake frequency: a few times a week Alcohol type: beer Patient Tobacco Use Status: Former Tobacco user Tobacco use type: Cigarette e-Cigarette/Vaping Use: Never Used Second Hand Smoke Exposure: Yes service: Yes Current occupational status: retired Cognitive needs: No Hearing needs: Yes Vision needs: Yes Questionnaire PHQ-9 Over the last 2 weeks, how often have you been bothered by any of the following problems? 1. Little interest or pleasure in doing things: not at all 2. Feeling down, depressed, or hopeless: not at all 3. Trouble falling or staying asleep, or sleeping too much: not at all 4. Feeling tired or having little energy: not at all 5. Poor appetite or overeating: not at all 6. Feeling bad about yourself - or that you are a failure or have let yourself or your family down: not at all 7. Trouble concentrating on things, such as reading the newspaper or watching television: not at all 8. Moving or speaking so slowly that other people could have noticed. Or the opposite - being so fidgety or restless that you have been moving around a lot more than usual: not at all 9. Thoughts that you would be better off or of hurting yourself in some way: not at all Total score: 0 Depression Screening Interpretation: Negative Depression Screening Done: Yes 19606 - PHQ-9 Billing: Yes Source: Developed by Drs. Tobin Diaz, Carleen Burton, Rock Toro and colleagues, with an educational blas from [employer]. Thrive Questionnaire Date Thrive assessed: 11/17/24 I am a: Patient What is your living situation today?: I have a steady place to live Within the past 12 months, did the food you bought not last and you didn't have the money to get more?: Never true Within the past 12 months, did you worry whether your food would run out before you got money to buy more?: Never true Do you have trouble paying for medicines?: No Do you have trouble getting transportation to medical appointments?: No Do you have trouble paying your heating and electricity bill?: No Do you have trouble taking care of your child, family member or friend?: No Do you have trouble with day-to-day activities such as bathing, preparing meals, shopping, managing finances, etc.?: No Are you currently unemployed and looking for a job?: No Are you interested in more education?: No Please select the resources that you would like help with: None Currently or been in a relationship where the following occur: No concerns reported THRIVE Score: 0 AUDIT C Alcohol Use Questionnaire (AUDIT-C) 1. How often do you have a drink containing alcohol?: Monthly or less 2. How many drinks containing alcohol do you have on a typical day when you are drinking?: 1 or 2 3. How often do you have six or more drinks on one occasion?: Never Total Score: 1 Score Reviewed/Action Taken: Yes STACY-7 AMB Questionnaire STACY-7 Date STACY - 7 assessed: 11/17/24 Feeling nervous, anxious, or on edge: 0 = Not at all Not being able to stop or control worryin = Not at all Worrying too much about different things: 0 = Not at all Trouble relaxin = Nearly every day Being so restless that it is hard to sit still: 0 = Not at all Becoming easily annoyed or irritable: 0 = Not at all Feeling afraid as if something awful might happen: 0 = Not at all Total STACY-7 score (0-4 normal; 5-9 mild; 10-14 moderate; 15-21 severe): 3 Source: Developed by Drs. Tobin Diaz, Carleen Burton, Rock Toro and colleagues, with an educational blas from [employer]. Review of Systems Const Denies chills, Denies fatigue, Denies fever(s) and Denies headache(s) ENT Denies dysphagia, Denies dizziness, Denies otalgia, Denies headache(s), Denies neck pain, Denies odynophagia and Denies sore throat Card Denies chest pain, Denies irregular heart rhythm, Denies palpitations and Denies dyspnea Resp Denies chest congestion, Denies cough and Denies dyspnea GI Denies abdominal pain, Denies constipation, Denies dysphagia, Denies heartburn, Denies diarrhea, Denies nausea, Denies odynophagia and Denies vomiting Denies difficulty urinating, Denies dysuria and Denies urinary frequency Musc Reports back pain (over the lower back - improving), Reports arthralgias (over the right knee - knee feels swollen at times) and Denies neck pain Skin/Breast Details: (+) painful cyst behind right knee Denies rash Neuro Denies dizziness, Denies headache(s) and Denies paresthesias Endo Denies fatigue and Denies palpitations Physical exam (Primary Care) Vital Signs: Last Vital Signs Pulse 86 11/17/24 13:24 BP 136/82 11/17/24 13:24 Pulse Ox 96 11/17/24 13:24 Oxygen Delivery Method Room Air 11/17/24 13:24 BMI result Body Mass Index 28.4 Tobacco/Smoking Status: Tobacco use Status Tobacco use date assessed 11/17/24 11/17/24 13:33 Patient Tobacco Use Status Former Tobacco user 11/17/24 13:33 Tobacco use type Cigarette 11/17/24 13:33 e-Cigarette/Vaping Use Never Used 11/17/24 13:33 PHQ-9: PHQ-9 Score PHQ-9: Total score 0 11/17/24 14:03 Depression Screening Interpretation: Negative Thrive Assessment: Date of Thrive Assessment Date Thrive assessed 11/17/24 11/17/24 13:33 Currently or been in a relationship where the following occur: No concerns reported Const General: no acute distress and alert HENMT Ears: TM's normal bilaterally and EAC's normal Throat: Yes posterior oropharynx normal and Yes tonsils normal (no TP congestion) Neck Neck: Yes no lymphadenopathy and Yes supple Thyroid: Thyroid normal Resp Auscultation: clear to auscultation bilaterally, no rales and no wheezes Cardio Rate: regular rate Rhythm: regular rhythm Heart sounds: no murmurs GI Palpation (GI): Soft to palpation and nontender Auscultation: normal bowel sounds General: Yes no CVA tenderness Back/Spine/Pelvis Back: no CVA tenderness Thoracic/Lumbar Spine: paraspinal muscle tenderness bilaterally in the mid lumbar and in the lower lumbar and lumbar spinal tenderness Skin Rashes: no rashes Extrem General: Yes no clubbing, cyanosis or edema Right lower extremity: knee ((+) small, slightly tender nodular lesion at R popliteal fossa) Details: tenderness Location: of the popliteal fossa and of the medial joint line; no swelling Coding Level of Care Code Est Pt Level 4 (62070) Complex EM visit Add On G2211 Diagnoses Pure hypercholesterolemia E78.00 Type 2 diabetes mellitus with hyperglycemia, without long-term current use of insulin E11.65 Diabetes mellitus type: type 2 Diabetes mellitus residential insulin use: without residential use Diabetes mellitus complication status: with hyperglycemia Benign essential hypertension I10 Right knee pain, unspecified chronicity M25.561 Chronicity: unspecified Synovial cyst of right popliteal space M71.21 Laterality: right Acute myofascial strain of lumbar region, sequela S39.012S Encounter type: sequela Benign prostatic hyperplasia with weak urinary stream N40.1; R39.12 Lower urinary tract symptom detail: weak urinary stream Nocturnal leg cramps G47.62 Constipation, unspecified constipation type K59.00 Constipation type: unspecified constipation type Overweight (BMI 25.0-29.9) E66.3 Additional Codes PHQ-9 - 85875 - PHQ-9 Billing: Yes ([id number]) Assessment & Plan Assessment & Plan (1) Pure hypercholesterolemia: Code(s): E78.00 - Pure hypercholesterolemia, unspecified Category: Medical Plan: Patient was not able to get his follow-up labs done prior to his visit today - states that he will try to get them done RACH Reinforced low cholesterol diet Continue Atorvastatin 20 mg QD Will recheck his labs and fasting lipids again in 4 months for follow up (2) Diabetes mellitus: Code(s): E11.9 - Type 2 diabetes mellitus without complications Category: Medical Qualifiers: Diabetes mellitus type: type 2 Diabetes mellitus 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: without computer terminal operator use Diabetes mellitus complication status: with hyperglycemia Qualified Code(s): E11.65 - Type 2 diabetes mellitus with hyperglycemia Plan: HgbA1c was most recently at 6.6% when last checked in July 2024 (in-office HgbA1c was previously at 7.8% a few months prior to that) - goal is at least <7.0% Reinforced diabetic diet - he was referred to a optometric technician/dietitian for dietary consultation last year, per his request Continue Metformin ER 500 mg 2 tablets (1000 mg) BID and Glimepiride 2 mg QD (3) Benign essential hypertension: Code(s): I10 - Essential (primary) hypertension Category: Medical Plan: Reinforced low sodium diet - goal is systolic BP of 120 mm or less Continue Lisinopril 10 mg QD (4) Right knee pain: Code(s): M25.561 - Pain in right knee Category: Medical Qualifiers: Chronicity: unspecified Qualified Code(s): M25.561 - Pain in right knee Plan: We sent patient for x-rays of the right knee previously for further evaluation but he has not been able to get this done yet Have advised patient that he may need to see orthopedics if his knee symptoms persist (5) Popliteal cyst: Code(s): M71.20 - Synovial cyst of popliteal space [Narvaez], unspecified knee Category: Medical Qualifiers: Laterality: right Qualified Code(s): M71.21 - Synovial cyst of popliteal space [Narvaez], right knee Plan: Will refer him to orthopedics for further evaluation and management (6) Acute lumbar myofascial strain: Code(s): S39.012A - Strain of muscle, fascia and tendon of lower back, initial encounter Category: Medical Qualifiers: Encounter type: sequela Qualified Code(s): S39.012S - Strain of muscle, fascia and tendon of lower back, sequela Plan: Appears to be improving Reinforced activity and weight-lifting restrictions /precautions to avoid aggravating his low back pain and injury (7) Benign prostatic hyperplasia with lower urinary tract symptoms: Code(s): N40.1 - Benign prostatic hyperplasia with lower urinary tract symptoms Category: Medical Qualifiers: Lower urinary tract symptom detail: weak urinary stream Qualified Code(s): N40.1 - Benign prostatic hyperplasia with lower urinary tract symptoms; R39.12 - Poor urinary stream Plan: (+) Hx of BPH; his PSA level was still elevated >6.0 when last checked a couple of months ago in September 2024 Continue Dutasteride 0.5 mg QD Follow up with urology as scheduled (8) Nocturnal leg cramps: Code(s): G47.62 - Sleep related leg cramps Category: Medical Plan: Continue Mag Ox 400 mg BID (9) Constipation: Code(s): K59.00 - Constipation, unspecified Category: Medical Qualifiers: Constipation type: unspecified constipation type Qualified Code(s): K59.00 - Constipation, unspecified Plan: He is again encouraged on increased oral fluids and dietary fiber May continue taking OTC stool softeners as needed (10) Overweight (BMI 25.0-29.9): Code(s): E66.3 - Overweight Category: Medical Plan: Reinforced diet/exercise as tolerated/lose weight Plan Follow up in 4 months Orders: Orders Complete Blood Count Auto Diff 4 Months D64.9 - Anemia, unspecified Comprehensive [place]. Panel Fast 4 Months E78.00 - Pure hypercholesterolemia, unspecified UA CC w/rflx Micro + Cult 4 Months R30.0 - Dysuria Hemoglobin A1c 4 Months E11.9 - Type 2 diabetes mellitus without complications Lipid Panel 4 Months E78.00 - Pure hypercholesterolemia, unspecified Microalbumin, Random (w Creat) 4 Months E11.9 - Type 2 diabetes mellitus without complications TSH reflex Free T4 4 Months E78.00 - Pure hypercholesterolemia, unspecified Vitamin D 25-OH Total 4 Months E55.9 - Vitamin D deficiency, unspecified Referrals Orthopedics Referral M71.20 - Synovial cyst of popliteal space [Narvaez], unspecified knee
[2024-11-17 13:24] VITALS: BP 136/82; PULSE 86; O2SAT 96; BMI 28.4
== END 2024-11-17 14:11 | disposition home or self-care (01) ==
LOC: HO.HMCH 13:11
PROVIDERS: PCP Internal Medicine; Visit Provider Internal Medicine
DX: E78.00 Pure hypercholesterolemia, unspecified (principal); E11.65 Type 2 diabetes mellitus with hyperglycemia; I10 Essential (primary) hypertension; M25.561 Pain in right knee; M71.21 Synovial cyst of popliteal space [Baker], right knee; S39.012S Strain of muscle, fascia and tendon of lower back, sequela; N40.1 Benign prostatic hyperplasia with lower urinary tract symptoms; R39.12 Poor urinary stream; G47.62 Sleep related leg cramps; K59.00 Constipation, unspecified; E66.3 Overweight

== ENCOUNTER → 2024-11-17 13:10 | Outpatient (BNVA) | payer MEDICARE, SELFPAY | PROVIDERS: PCP Internal Medicine; Visit Provider Internal Medicine | DX: E78.00 Pure hypercholesterolemia, unspecified (principal); E11.65 Type 2 diabetes mellitus with hyperglycemia; I10 Essential (primary) hypertension; M25.561 Pain in right knee; M71.21 Synovial cyst of popliteal space [Baker], right knee; S39.012S Strain of muscle, fascia and tendon of lower back, sequela; N40.1 Benign prostatic hyperplasia with lower urinary tract symptoms; R39.12 Poor urinary stream; G47.62 Sleep related leg cramps; K59.00 Constipation, unspecified; E66.3 Overweight; R30.0 Dysuria; E55.9 Vitamin D deficiency, unspecified | CPT/HCPCS: 96127; 99212 ==

== ENCOUNTER 2024-11-27 12:07 | Outpatient (AMB) | payer MEDICARE, SELFPAY ==
--- NOTE | 2024-11-27 13:03 | AM.OFFWIN_ITS ---
Intake Vital Signs 11/27/24 13:08 Weight 181 lb BP 146/80 H Blood Pressure Location Rt brachial Position Sitting Pulse 57 Pulse Source Pulse Oximeter Pulse Oximetry (%) 98 Oxygen Delivery Method Room Air Intake Visit Reasons: EP-rt hip pain, cyst on back rt knee Intake Note: Patient here for right hip pain and also has a bakers cyst behind the right knee. Patient Tobacco Use Status: Former Tobacco user Allergies No Known Allergies Allergy (Verified 11/27/24 13:07) Do you need a note to return to daycare/school/sports/work: No HPI HPI Comments History of Present Illness Details History of Present Illness - The patient is a 69 year old male pres enting with pain in the low right side of his back. - The pain began a few weeks prior to th e visit, with no direct injury preceding its onset, only referencing a fall from the previous year. - Pain is localized to the lower back an d increases upon transitioning from sitting to standing; it does not extend to the buttocks or legs. it is not sharp or shooting. - Regular physical activity, including c ycling on a stationary bike three to four times a week, has been documented. - Has used heat patches. Physical Exam General: Cooperative, healthy appearing, comfortable, no acute distress and well developed Orientation: Patient oriented x3 Limitations: No limitations Head: Normal to inspection Ears: Hearing grossly normal bilaterally Nose: Normal External nose present Face and sinus: Normal facial exam Eyes: Appearance normal, both eyes and all related structures Neck: Normal visual inspection and Yes full ROM Respiratory: Normal respiratory effort and able to speak in complete sentences. Skin: No rashes or lesions noted Neuro: Patient oriented x3 Back/spine: no TTP lumbar spine, large muscle spasm noted on right low back with TTP, no skin changes, no warmth noted Extremities: Normal to inspection, full range of motion in the right hip, no ttp to lateral right hip. [facility] Medical History Benign prostatic hyperplasia with lower urinary tract symptoms Degenerative joint disease of right knee Overweight (BMI 25.0-29.9) Diabetes mellitus Pure hypercholesterolemia Benign essential hypertension Congenital absence of left testicle Surgical History History of colonoscopy (~06/13/22) Hx of rotator cuff surgery Family History Father Prostate cancer Colon cancer Mother Alzheimer's dementia Social History Housing: House Alcohol intake: current Alcohol intake frequency: a few times a week Alcohol type: beer Patient Tobacco Use Status: Former Tobacco user Tobacco use type: Cigarette e-Cigarette/Vaping Use: Never Used Second Hand Smoke Exposure: Yes service: Yes Current occupational status: retired Cognitive needs: No Hearing needs: Yes Vision needs: Yes Review of Systems Const All systems reviewed & are unremarkable except as noted in HPI and below Physical Exam Vital Signs: Last Vital Signs Pulse 57 11/27/24 13:08 BP 146/80 H 11/27/24 13:08 Pulse Ox 98 11/27/24 13:08 Oxygen Delivery Method Room Air 11/27/24 13:08 Assessment & Plan Assessment & Plan (1) Spasm of muscle of lower back: Code(s): M62.830 - Muscle spasm of back Plan: Cyclobenzaprine is prescribed at 10 mg every eight hours as needed to manage the patient's back pain due to suspected muscle spasm, with instructions regarding potential sedation effects. Heat application to the affected area is advised to further relieve muscle tension. A referral to physical therapy is made to assist with muscle spasm release via specialized exercises. The patient should continue their current regimen of using a stationary bike, and if pain persists, a follow-up with their primary care physician is recommended for further workup. Patient was informed and verbally consented to the use of an ambient scribe for clinic note documentation during this visit. Orders: Orders PT Evaluation and Treatment Today M62.830 - Muscle spasm of back Medications: New cyclobenzaprine 10 mg (2 x 5 mg) PO Q8H PRN 30 tabs 0RF Muscle Spasm Coding Level of Care Code Est Pt Level 4 (18272) Diagnoses Spasm of muscle of lower back M62.830
[2024-11-27 13:08] VITALS: BP 146/80; PULSE 57; O2SAT 98
== END 2024-11-27 13:53 | disposition home or self-care (01) ==
PROVIDERS: PCP Internal Medicine; Visit Provider Physician Assistant
DX: M62.830 Muscle spasm of back (principal)

== ENCOUNTER → 2024-11-27 12:07 | Outpatient (BNVA) | payer MEDICARE, SELFPAY | PROVIDERS: PCP Internal Medicine; Visit Provider Physician Assistant | DX: M62.830 Muscle spasm of back (principal) | CPT/HCPCS: 99212 ==

== ENCOUNTER 2024-12-02 15:38 | Outpatient (REF) | payer MEDICARE, SELFPAY ==
--- NOTE | ~2024-12-02 | XR_ITS ---
CLINICAL HISTORY: M54.50 - Low back pain, unspecified Exam: AP, lateral, and spot lateral views of the lumbar spine. Comparison: None. Findings: Bony alignment of the lumbar vertebral bodies is anatomic. No acute fracture. Mild degenerative disc disease from L2-3 inferiorly. Snti-kz-[id number] facet joint degenerative change from L2-3 inferiorly. Moderate stool throughout the colon. Impression: Degenerative changes as above. This document has been electronically signed by: Ludwin Lopez MD on 12/04/2024 06:23:35
--- NOTE | ~2024-12-02 | XR_ITS ---
CLINICAL HISTORY: M25.551 - Pain in right hip Exam: AP and frog-leg lateral views of the right hip. Comparison: None. Findings: Bony alignment of the hip joint is anatomic. No fracture or erosion. Joint spaces are well preserved. Impression: Negative right hip radiographs. This document has been electronically signed by: Ludwin Lopez MD on 12/04/2024 06:24:29
== END 2024-12-02 15:39 | disposition home or self-care (01) ==
LOC: HO.XRAY 15:38
PROVIDERS: PCP Internal Medicine; Visit Provider Internal Medicine
DX: M54.50 Low back pain, unspecified (principal); M25.551 Pain in right hip; Z91.81 History of falling
CPT/HCPCS: 72100; 73502

== ENCOUNTER → 2024-12-02 15:44 | Outpatient (BNV) | payer MEDICARE, SELFPAY | PROVIDERS: PCP Internal Medicine; Visit Provider Radiology Diagnostic Radiology | DX: M25.551 Pain in right hip (principal); M54.50 Low back pain, unspecified | CPT/HCPCS: 72100; 73502 ==

== ENCOUNTER 2024-12-24 10:50 | Outpatient (REF) | payer MEDICARE, SELFPAY ==
--- NOTE | ~2024-12-24 | XR_ITS ---
EXAMINATION: XR KNEE, RIGHT CLINICAL INFORMATION: M17.11 - Unilateral primary osteoarthritis, right knee COMPARISON: None available. TECHNIQUE: AP view bilateral knees standing, lateral and patellofemoral views right knee. FINDINGS: LEFT KNEE: No fracture or dislocation. Normal bone mineralization. Preserved joint spaces. Mild spurring of the tibial spines. Normal soft tissues. RIGHT KNEE: No fracture, dislocation, or suspicious bone lesion. Normal bone mineralization. Mild medial compartment joint space narrowing. Mild to moderate patellofemoral compartment osteoarthrosis most notable involving the lateral facet. Mild spurring of the tibial spines. No evidence of joint effusion. Normal soft tissues. XR/XR knee RT 3V IMPRESSION: 1. Right knee demonstrating mild to moderate patellofemoral compartment, and mild medial compartment osteoarthrosis. No acute bony abnormalities. No joint effusion. Electronically signed by: Cesar Mckeon MD 12/25/2024 08:36 AM EDT
== END 2024-12-24 10:51 | disposition home or self-care (01) ==
LOC: HO.HOSX 10:50
PROVIDERS: Visit Provider Physician Assistant
DX: M17.11 Unilateral primary osteoarthritis, right knee (principal); M79.89 Other specified soft tissue disorders
CPT/HCPCS: 73562; 99212

== ENCOUNTER 2024-12-24 13:02 | Outpatient (AMB) | payer MEDICARE, SELFPAY ==
--- NOTE | 2024-12-24 13:19 | A.OFFVIS_ITS ---
Vital Signs 12/24/24 13:34 Height 5 ft 7 in Weight 181 lb BMI 28.3 Intake Visit Reasons: OV- RT knee pain Intake Note: Sotero is a 69 year old male who presents today for a follow up of right knee pain. Patient was previously seen here on 01/23/[address] Bustillos for an MRI review which showed a partial-thickness medial meniscus tear, narvaez cyst, and possible thrombophlebitis of a vein behind his right knee- he was suggested to follow up with Vascular if this continues to bother him. He was to follow up in office as needed. Today patient reports that is pain presents when he is not active, stating most discomfort comes at night. He describes his pain as a dull discomfort. At times his discomfort radiates up his femur bone. Most of his pain is located where his narvaez cyst is. He has difficulty with stair use and with bending his knee to put on socks. No other treatment. Allergies No Known Allergies Allergy (Verified 12/24/24 13:37) Medication List - Last Reconciled 12/24/24 by Edilson Flanagan PA-C atorvastatin 20 mg PO DAILY 90 days blood sugar diagnostic (OneTouch Ultra Test strips) USE TO CHECK BLOOD SUGAR ONCE DAILY cyclobenzaprine 10 mg (2 x 5 mg) PO Q8H PRN lancets As directed lancets ONE TOUCH ULTRA TEST STRIPS - use as directed - Dx: E11.9 -- Diabetes lisinopril 10 mg PO DAILY 90 days metformin ER 1,000 mg (2 x 500 mg) PO BID 90 days HPI HPI OV- RT knee pain: Details: 69-year-old gentleman presents to the office today for right lower extremity pain. He states he fell a few weeks ago and has noticed some pain in the lateral aspect of the hip and also into the thigh region. He denies pain in the knee. His primary complaint is this marble sized lump that is along the proximal aspect of the tibia, posteriorly. It is located along the medial aspect and very tender to palpation. He does not recall an injury to this area. He denies calf pain. He states when the mass is aggravated it causes pain that radiates up the leg. [facility] Medical History Benign prostatic hyperplasia with lower urinary tract symptoms Degenerative joint disease of right knee Overweight (BMI 25.0-29.9) Diabetes mellitus Pure hypercholesterolemia Benign essential hypertension Congenital absence of left testicle Surgical History History of colonoscopy (~06/13/22) Hx of rotator cuff surgery Family History Father Prostate cancer Colon cancer Mother Alzheimer's dementia Social History Housing: House Alcohol intake: current Alcohol intake frequency: a few times a week Alcohol type: beer Patient Tobacco Use Status: Former Tobacco user Tobacco use type: Cigarette e-Cigarette/Vaping Use: Never Used Second Hand Smoke Exposure: Yes service: Yes Current occupational status: retired Cognitive needs: No Hearing needs: Yes Vision needs: Yes Review of Systems Const All systems reviewed & are unremarkable except as noted in HPI and below Physical Exam Vital Signs: BMI result Body Mass Index 28.3 Const General: cooperative and no acute distress Orientation/consciousness: patient oriented x3 Resp Effort & Inspection: normal respiratory effort and able to speak in complete sentences Cardio Peripheral pulses: Peripheral pulses 2+ throughout Neuro General: patient oriented x3 Extrem Other: Right hip full range of motion without pain. Mild tenderness over the right greater trochanteric bursa. Right knee is normal to inspection without joint effusion. No tenderness over the lateral aspect of the patella or medial or lateral joint space. There is a marble-sized mass over the posterior aspect of the tibia located medially. He is very tender to palpation. The mass appears to be firm and slightly mobile. No fluctuance. This is not a pulsatile mass. Results Reviewed Results Reviewed: X-rays of the right knee obtained in the office today and reviewed by me show moderate arthritis. Assessment & Plan Assessment & Plan (1) Mass of soft tissue: Code(s): M79.89 - Other specified soft tissue disorders Category: Medical Plan: I am unclear of the etiology of this soft tissue mass however I reassured the patient it is likely not a Narvaez's cyst that is not directly posterior to the knee. I will order an imaging study to further assess the structure and once the scan is complete I will contact the patient to discuss further treatment options. Orders: Orders XR knee RT 3V Today M17.11 - Unilateral primary osteoarthritis, right knee Coding Level of Care Code Est Pt Level 3 (13880) Complex EM visit Add On G2211 Diagnoses Mass of soft tissue M79.89
[2024-12-24 13:34] VITALS: BMI 28.3
== END 2024-12-24 14:20 | disposition home or self-care (01) ==
LOC: HO.HOS 13:02
PROVIDERS: PCP Internal Medicine; Visit Provider Physician Assistant
DX: M79.89 Other specified soft tissue disorders (principal)
CPT/HCPCS: 99213; G2211

== ENCOUNTER → 2024-12-24 13:16 | Outpatient (BNV) | payer MEDICARE, SELFPAY | PROVIDERS: Visit Provider Radiology Diagnostic Radiology | DX: M17.11 Unilateral primary osteoarthritis, right knee (principal) | CPT/HCPCS: 73562 ==

== ENCOUNTER 2025-01-30 11:02 | Outpatient (REF) | payer MEDICARE, SELFPAY ==
--- NOTE | ~2025-01-30 | MR_ITS ---
EXAMINATION: MRI LOWER EXTREMITY, NON JOINT, WITHOUT AND WITH CONTRAST, RIGHT CLINICAL INFORMATION: Proximal medial tibial palpable lump COMPARISON: None available. TECHNIQUE: MRI of the tibia and fibula was performed before and after the intravenous administration of 8.0 mL of Gadavist on a high-field scanner. FINDINGS: SOFT TISSUES: There is a lentiform mass in the deep subcutaneous soft tissues of the posterior medial proximal lower leg, superficial to medial gastrocnemius muscle. It is located 3.5 cm caudal to the knee joint line. It measures 15 x 6 x 11 mm (AP by transverse by CC). On T1 imaging, it is isointense to skeletal muscle. On fluid sensitive sequences, it demonstrates heterogeneous high signal. With contrast, it demonstrates solid enhancement. Soft tissues are otherwise unremarkable. NEUROVASCULAR: No abnormalities are evident along the major neurovascular bundles. MARROW: Bone marrow signal is physiologic. MR/MR Tibia RT wo/w Contrast IMPRESSION: There is a 15 x 6 x 11 mm (AP by transverse by CC) solid enhancing mass in the deep subcutaneous soft tissues in the posterior medial lower leg, 3.5 cm caudal to the knee joint line. 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 Given the small size, an aggressive neoplasm is less likely. IMPRESSION: Unremarkable examination. Electronically signed by: Rafael Albrecht MD 01/30/2025 12:27 PM EDT
[2025-01-30] MEDS: gadobutroL 10 ML VIAL IVPUSH (12:16)
== END 2025-01-30 11:03 | disposition home or self-care (01) ==
LOC: HO.MRI 11:02
PROVIDERS: PCP Internal Medicine; Visit Provider Physician Assistant
DX: M79.89 Other specified soft tissue disorders (principal)
CPT/HCPCS: 73720; A9585

== ENCOUNTER → 2025-01-30 11:11 | Outpatient (BNV) | payer MEDICARE, SELFPAY | PROVIDERS: PCP Internal Medicine; Visit Provider Radiology Diagnostic Radiology | DX: R22.41 Localized swelling, mass and lump, right lower limb (principal) | CPT/HCPCS: 73720 ==

== ENCOUNTER 2025-02-06 08:20 | Outpatient (AMB) | payer MEDICARE, SELFPAY ==
[2025-02-06 08:21] VITALS: BP 128/66; PULSE 62; TEMP 36.9; O2SAT 99; BMI 28.0
--- NOTE | 2025-02-06 08:21 | MHC.OFFWIV ---
Intake Vital Signs 02/06/25 08:21 Height 5 ft 7 in Weight 179 lb BMI 28.0 BP 128/66 Blood Pressure Location Lt brachial Position Sitting Pulse 62 Pulse Source Pulse Oximeter Temp 98.4 F Temp Source Oral Pulse Oximetry (%) 99 Oxygen Delivery Method Room Air Intake Visit Reasons: EP Rash on arms, chest, back Intake Note: patient presents with an itchy rash, upper body and upper thighs. benadryl is helping the itch. Patient Tobacco Use Status: Former Tobacco user Allergies No Known Allergies Allergy (Verified 02/06/25 08:21) Medication List - Last Reconciled 02/06/25 by Mikael Escalante MD atorvastatin 20 mg PO DAILY 90 days blood sugar diagnostic (OneTouch Ultra Test strips) USE TO CHECK BLOOD SUGAR ONCE DAILY lancets As directed lancets ONE TOUCH ULTRA TEST STRIPS - use as directed - Dx: E11.9 -- Diabetes lisinopril 10 mg PO DAILY 90 days metformin ER 1,000 mg (2 x 500 mg) PO BID 90 days multivitamin 1 tab PO DAILY Do you need a note to return to daycare/school/sports/work: No HPI EP Rash on arms, chest, back HPI Details Patient is a 70-year-old gentleman came in today to be evaluated for rash We started on his forearm and is now appearing on his torso as well Rash is pruritic Started after working outside in the yd There is no swelling of lips or tongue no shortness a breath PFSH Medical History Benign prostatic hyperplasia with lower urinary tract symptoms Degenerative joint disease of right knee Overweight (BMI 25.0-29.9) Diabetes mellitus Pure hypercholesterolemia Benign essential hypertension Congenital absence of left testicle Surgical History History of colonoscopy (~06/13/22) Hx of rotator cuff surgery Family History Father Prostate cancer Colon cancer Mother Alzheimer's dementia Social History Housing: House Alcohol intake: current Alcohol intake frequency: a few times a week Alcohol type: beer Patient Tobacco Use Status: Former Tobacco user Tobacco use type: Cigarette e-Cigarette/Vaping Use: Never Used Second Hand Smoke Exposure: Yes service: Yes Current occupational status: retired Cognitive needs: No Hearing needs: Yes Vision needs: Yes Review of Systems Const All systems reviewed & are unremarkable except as noted in HPI and below Physical Exam Vital Signs: Last Vital Signs Temp 98.4 F 02/06/25 08:21 Pulse 62 02/06/25 08:21 BP 128/66 02/06/25 08:21 Pulse Ox 99 02/06/25 08:21 Oxygen Delivery Method Room Air 02/06/25 08:21 BMI result Body Mass Index 28.0 Const General: no acute distress Orientation/consciousness: patient oriented x3 Eyes General: appearance normal, both eyes and all related structures Resp Effort & Inspection: normal respiratory effort and able to speak in complete sentences Auscultation: clear to auscultation bilaterally Skin Other: Maculopapular rash on forearm and torso in patches Neuro General: patient oriented x3 Psych Mental Status: mental status grossly normal Assessment & Plan Assessment & Plan (1) Pruritic rash: Code(s): L28.2 - Other prurigo Plan Patient is a 70-year-old gentleman came in today to be evaluated for rash We started on his forearm and is now appearing on his torso as well Rash is pruritic Started after working outside in the yd There is no swelling of lips or tongue no shortness a breath Medications: New prednisone 10 mg PO DAILY 5 tabs 0RF 5 days Coding Level of Care Code Est Pt Level 3 (30549) Diagnoses Pruritic rash L28.2
== END 2025-02-06 09:16 | disposition home or self-care (01) ==
PROVIDERS: PCP Internal Medicine; Visit Provider Internal Medicine
DX: L28.2 Other prurigo (principal)

== ENCOUNTER → 2025-02-06 08:20 | Outpatient (BNVA) | payer MEDICARE, SELFPAY | PROVIDERS: PCP Internal Medicine; Visit Provider Internal Medicine | DX: L28.2 Other prurigo (principal) | CPT/HCPCS: 99212 ==

== ENCOUNTER 2025-02-11 08:12 | Outpatient (AMB) | payer MEDICARE, SELFPAY ==
[2025-02-11 08:28] VITALS: BP 162/79; PULSE 61; BMI 27.6
--- NOTE | 2025-02-11 08:28 | MHC.OFFVIS ---
Vital Signs 02/11/25 08:28 Height 5 ft 7 in Weight 176 lb BMI 27.6 BP 162/79 H Blood Pressure Location Rt brachial Position Sitting Pulse 61 Intake Visit Reasons: Neoplasm of unspecified behavior of bone, soft tis Intake Note: Patient referred by Gisele Flanagan PA-C for evaluation of lesion Rt post knee. Present for 2yrs. Remembers pulling muscle while playing pickleball 2yrs ago. Patient c/o: on and off pain. At times very painful even sleeping on that side. MRI LOWER EXTREMITY, NON JOINT, WITHOUT AND WITH CONTRAST, RIGHT~ 01-30-2025 C Wpf Developer Required: No Accompanied by: Self / Same As Patient Allergies No Known Allergies Allergy (Verified 02/11/25 08:30) HPI HPI Neoplasm of unspecified behavior of bone, soft tis: Details: 70-year-old male referred for a has behind his right knee. He said he has had this for about 2 years now. However, he says it is periodically becomes painful and tender. He thinks that sometimes this become swollen as well. He therefore wants this removed. He had an MRI suggesting that this mass is a nerve sheath tumor. [facility] Medical History (Updated 02/11/25 @ 09:09 by Randy Yan MD) Nerve sheath tumor Benign prostatic hyperplasia with lower urinary tract symptoms Degenerative joint disease of right knee Overweight (BMI 25.0-29.9) Diabetes mellitus Pure hypercholesterolemia Benign essential hypertension Congenital absence of left testicle Surgical History History of colonoscopy (~06/13/22) Hx of rotator cuff surgery Family History Father Prostate cancer Colon cancer Mother Alzheimer's dementia Social History Housing: House Alcohol intake: current Alcohol intake frequency: a few times a week Alcohol type: beer Patient Tobacco Use Status: Former Tobacco user Tobacco use type: Cigarette e-Cigarette/Vaping Use: Never Used Second Hand Smoke Exposure: Yes service: Yes Current occupational status: retired Cognitive needs: No Hearing needs: Yes Vision needs: Yes Review of Systems Const Denies chills and Denies fever(s) Card Denies chest pain, Denies dyspnea and Denies dyspnea on exertion Resp Denies cough, Denies dyspnea and Denies dyspnea on exertion GI Denies hematochezia and Denies change in bowel habits Denies hematuria and Denies difficulty urinating Musc Denies back pain and Denies limited range of motion Neuro Denies focal weakness and Denies convulsions Psych Denies depression and Denies mood swings Physical Exam Vital Signs: Last Vital Signs Pulse 61 02/11/25 08:28 BP 162/79 H 02/11/25 08:28 BMI result Body Mass Index 27.6 Const General: comfortable and no acute distress Orientation/consciousness: patient oriented x3 Neck Neck: Yes no lymphadenopathy Resp Auscultation: clear to auscultation bilaterally Cardio Rhythm: regular rhythm GI Palpation (GI): Soft to palpation, nontender and no guarding Neuro General: patient oriented x3 Extrem Other: On the posterior medial aspect of the right knee is note of a movable mass, about 2 cm, well-defined, tender, cystic in hesitancy Assessment & Plan Assessment & Plan (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 This fairly mobile, well-defined. I explained to him the technique of excision of this mass under under anesthesia. I reviewed the risks including but not limited to bleeding, infections, nerve injury, injury to other organs, as well as the benefits and alternatives. He understands and wants to proceed. This has been scheduled in the OR under monitored anesthesia care. Coding Level of Care Code New Pt Level 3 (35356) Diagnoses Nerve sheath tumor D49.2
== END 2025-02-11 09:04 | disposition home or self-care (01) ==
LOC: HO.HGS 08:13
PROVIDERS: PCP Internal Medicine; Visit Provider Surgery
DX: D49.2 Neoplasm of unspecified behavior of bone, soft tissue, and skin (principal)
CPT/HCPCS: 99203

== ENCOUNTER → 2025-02-11 08:12 | Outpatient (BNVA) | payer MEDICARE, SELFPAY | PROVIDERS: PCP Internal Medicine; Visit Provider Surgery | DX: D49.2 Neoplasm of unspecified behavior of bone, soft tissue, and skin (principal) | CPT/HCPCS: 99202 ==

== ENCOUNTER 2025-03-24 11:52 | Day surgery (SDC) | payer MEDICARE, SELFPAY ==
[2025-03-20 12:01] VITALS: BMI 27.6
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
[2025-03-24 12:02] VITALS: BMI 27.2
[2025-03-24 12:16] VITALS: BP 141/69; PULSE 68; RESP 16; TEMP 36.8; O2SAT 98
--- NOTE | 2025-03-24 12:21 | PC.NURSE ---
Pt sts had coffee with creamer with 0700, reported to Dr. Reynolds
[2025-03-24] MEDS: Lactated Ringers 1,000 ML 100 ML IVCONT (12:24)
[2025-03-24 12:31] LABS: Glucose, Whole Blood 160 mg/dL (60-115)
--- NOTE | 2025-03-24 12:49 | MHC.SHP ---
Pre-Procedural Eval Section A - 24 Hr Update-Section A only Date of Service: 03/24/25 The patient is an INPATIENT: No Changes since office visit: No Cold of Flu in the past 2 weeks, No New Medical Problems, No Changes in Medication and No Patient answered all questions The patient has been examined within 24 hours of the surgical procedure. The History & Physical has been completed within 30 days and I have reviewed it.: Yes Section B - Complete if H&P > 30 days Chief Complaint: Neoplasm of unspecified behavior of bone, soft tis Allergies: Allergies Allergy/AdvReac Type Severity Reaction Status Date / Time No Known Allergies Allergy Verified 03/24/25 12:30 Plan I have reviewed the history and physical and performed a pertinent physical examination on my patient. No changes have occurred unless specified. Time Spent With Patient Time: Total time managing care of this patient today ____ minutes.
--- NOTE | 2025-03-24 14:02 | W.PM.OPN ---
Operative Note Operative Note Date of Service: 03/24/25 Narrative: Preop diagnosis: Subcutaneous mass, right leg Postop diagnosis: Deep subcutaneous mass, right leg near the popliteal fossa Procedure: Excision of deep subcutaneous mass right leg under anesthesia Surgeon: Randy Yan MD [employer] Registrar: Katia Byrd, MS III The patient is a 70-year-old male with a painful deep subcutaneous mass on the right leg near the popliteal fossa medially. This has been causing him significant pain and discomfort he wanted this is removed. He understood the technique of excision under anesthesia and he was was aware of the risks, benefits, and alternatives. He was brought to the operating room. He was placed supine under monitored anesthesia care. The right leg was abducted to expose the posteromedial aspect of the knee. The mass was felt just distal to the knee in the very deep subcutaneous layer. This appeared to be mobile and well-defined I infiltrated the planned line of incision with lidocaine 1%. I made the incision in the skin overlying the mass with a blade 15.. This was carried down with electrocautery through the full-thickness of the skin and subcutaneous fat. I continued to dissect through the deep subcutaneous tissues until was able to visualize the mass. This was a soft, well-defined mass, oval in shape, about 1 cm in size. I continued to sharply dissect the mass off of the rest of the deep subcutaneous tissue until was able to deliver this. This was sent as a specimen I irrigated and reapposed the deep subcutaneous tissue with Polysorb 3-0 simple interrupted sutures. Skin closure was achieved with nylon 3-0 simple interrupted sutures. Dressings were applied. The area was infiltrated with Marcaine 0.5% for postop analgesia. The procedure was completed The patient tolerated procedure well. There were no immediate complications. There was minimal blood loss. The patient was then transferred to the recovery room with stable vital signs.
[2025-03-24 14:05] VITALS: BP 111/55; PULSE 58; RESP 12; TEMP 36.2; O2SAT 98
[2025-03-24 14:20] VITALS: BP 118/92; PULSE 55; RESP 14; O2SAT 99
[2025-03-24 14:35] VITALS: BP 143/74; PULSE 63; RESP 14; O2SAT 100
[2025-03-24 14:50] VITALS: BP 147/70; PULSE 61; RESP 18; TEMP 36.6; O2SAT 100
== END 2025-03-24 15:17 | disposition home or self-care (01) ==
PROVIDERS: PCP Internal Medicine; Visit Provider Surgery
PROC: (CPT 27327; principal; 2025-03-24 14:40)
DX: D36.13 Benign neoplasm of peripheral nerves and autonomic nervous system of lower limb, including hip (principal); M17.11 Unilateral primary osteoarthritis, right knee; I10 Essential (primary) hypertension; E11.9 Type 2 diabetes mellitus without complications; E78.00 Pure hypercholesterolemia, unspecified; N40.0 Benign prostatic hyperplasia without lower urinary tract symptoms; Q55.0 Absence and aplasia of testis; E66.3 Overweight; Z68.27 Body mass index [BMI] 27.0-27.9, adult; Z98.890 Other specified postprocedural states; Z87.891 Personal history of nicotine dependence; Z79.899 Other long term (current) drug therapy
CPT/HCPCS: 27327; 82947; 88304; 88307; J0665; J0690; J2003; J2250; J2704; J3010

== ENCOUNTER → 2025-03-24 11:52 | Outpatient (BNV) | payer MEDICARE, SELFPAY | PROVIDERS: PCP Internal Medicine; Visit Provider Surgery | DX: D36.13 Benign neoplasm of peripheral nerves and autonomic nervous system of lower limb, including hip (principal) | CPT/HCPCS: 27327 ==

== ENCOUNTER 2025-03-26 10:34 | Outpatient (AMB) | payer MEDICARE, SELFPAY ==
[2025-03-26 10:43] VITALS: BP 132/84; PULSE 64; O2SAT 97; BMI 27.2
--- NOTE | 2025-03-26 10:43 | MHC.PC.OV ---
Vital Signs 03/26/25 10:43 Height 5 ft 7 in Weight 174 lb BMI 27.2 BP 132/84 Blood Pressure Location Lt brachial Position Sitting Pulse 64 Pulse Source Pulse Oximeter Pulse Oximetry (%) 97 Oxygen Delivery Method Room Air Intake Visit Reasons: hyperlipidemia, DM Registered Client Associate Required: No Accompanied by: Self / Same As Patient Allergies No Known Allergies Allergy (Verified 03/26/25 11:23) Medication List - Last Reconciled 03/26/25 by John Dumont MD atorvastatin 20 mg PO DAILY 90 days blood sugar diagnostic (OneTouch Ultra Test strips) USE TO CHECK BLOOD SUGAR ONCE DAILY ibuprofen 600 mg PO Q6H PRN lancets As directed lancets ONE TOUCH ULTRA TEST STRIPS - use as directed - Dx: E11.9 -- Diabetes lisinopril 10 mg PO DAILY 90 days metformin ER 1,000 mg (2 x 500 mg) PO BID 90 days multivitamin 1 tab PO DAILY tramadol 50 mg PO Q6H PRN Tobacco use date assessed: 03/26/25 Fall risk assessment: No Falls in past year Last assessed Fall Risk: 03/26/25 Dental Screening Dental Screen Date: 03/26/25 Did you have a dental visit in the last 12 months?: No Did you have a dental problem in the last 6 months where you did not have access to dental care?: No Was dental information given to patient?: No HPI hyperlipidemia, DM HPI Details Patient comes in today for his follow up visit States that he feels okay He had the painful cyst behind his right knee removed by Dr. 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 He denies any headaches or dizziness Denies any chest pains, no SOB No nausea/vomiting, no abdominal pain No change in bowel habits noted He was not able to get his follow up labs done prior to his appointment today - states that he will try to get them done [facility] Medical History Nerve sheath tumor Benign prostatic hyperplasia with lower urinary tract symptoms Degenerative joint disease of right knee Overweight (BMI 25.0-29.9) Diabetes mellitus Pure hypercholesterolemia Benign essential hypertension Congenital absence of left testicle Surgical History History of colonoscopy (~06/13/22) Hx of rotator cuff surgery Family History Father Prostate cancer Colon cancer Mother Alzheimer's dementia Social History Housing: House Alcohol intake: current Alcohol intake frequency: a few times a week Alcohol type: beer Patient Tobacco Use Status: Former Tobacco user Tobacco use type: Cigarette e-Cigarette/Vaping Use: Never Used Second Hand Smoke Exposure: Yes service: Yes Current occupational status: retired Cognitive needs: No Hearing needs: Yes Vision needs: Yes Questionnaire PHQ-9 Over the last 2 weeks, how often have you been bothered by any of the following problems? 1. Little interest or pleasure in doing things: not at all 2. Feeling down, depressed, or hopeless: not at all 3. Trouble falling or staying asleep, or sleeping too much: not at all 4. Feeling tired or having little energy: not at all 5. Poor appetite or overeating: not at all 6. Feeling bad about yourself - or that you are a failure or have let yourself or your family down: not at all 7. Trouble concentrating on things, such as reading the newspaper or watching television: not at all 8. Moving or speaking so slowly that other people could have noticed. Or the opposite - being so fidgety or restless that you have been moving around a lot more than usual: not at all 9. Thoughts that you would be better off or of hurting yourself in some way: not at all Total score: 0 Depression Screening Interpretation: Negative Depression Screening Done: Yes 66664 - PHQ-9 Billing: Yes Source: Developed by Drs. Tobin Diaz, Carleen Burton, Rock Toro and colleagues, with an educational blas from [employer]. Thrive Questionnaire Date Thrive assessed: 03/26/25 I am a: Patient What is your living situation today?: I have a steady place to live Within the past 12 months, did the food you bought not last and you didn't have the money to get more?: Never true Within the past 12 months, did you worry whether your food would run out before you got money to buy more?: Never true Do you have trouble paying for medicines?: No Do you have trouble getting transportation to medical appointments?: No Do you have trouble paying your heating and electricity bill?: No Do you have trouble taking care of your child, family member or friend?: No Do you have trouble with day-to-day activities such as bathing, preparing meals, shopping, managing finances, etc.?: No Are you currently unemployed and looking for a job?: No Are you interested in more education?: No Please select the resources that you would like help with: None Currently or been in a relationship where the following occur: No concerns reported THRIVE Score: 0 AUDIT C Alcohol Use Questionnaire (AUDIT-C) 1. How often do you have a drink containing alcohol?: 2-4 times a month 2. How many drinks containing alcohol do you have on a typical day when you are drinking?: 1 or 2 3. How often do you have six or more drinks on one occasion?: Never Total Score: 2 Score Reviewed/Action Taken: Yes STACY-7 AMB Questionnaire STACY-7 Date STACY - 7 assessed: 03/26/25 Feeling nervous, anxious, or on edge: 0 = Not at all Not being able to stop or control worryin = Not at all Worrying too much about different things: 0 = Not at all Trouble relaxin = Nearly every day Being so restless that it is hard to sit still: 0 = Not at all Becoming easily annoyed or irritable: 0 = Not at all Feeling afraid as if something awful might happen: 0 = Not at all Total STACY-7 score (0-4 normal; 5-9 mild; 10-14 moderate; 15-21 severe): 3 Source: Developed by Drs. Tobin Diaz, Carleen Burton, Rock Toro and colleagues, with an educational blas from [employer]. Review of Systems Const Denies chills, Denies fatigue, Denies fever(s) and Denies headache(s) ENT Denies dysphagia, Denies dizziness, Denies otalgia, Denies headache(s), Denies neck pain, Denies odynophagia and Denies sore throat Card Denies chest pain, Denies irregular heart rhythm, Denies palpitations and Denies dyspnea Resp Denies chest congestion, Denies cough and Denies dyspnea GI Denies abdominal pain, Denies constipation, Denies dysphagia, Denies heartburn, Denies diarrhea, Denies nausea, Denies odynophagia and Denies vomiting Denies difficulty urinating, Denies dysuria and Denies urinary frequency Musc Denies back pain, Reports arthralgias (in the right knee at times) and Denies neck pain Skin/Breast Denies rash Neuro Denies dizziness, Denies headache(s) and Denies paresthesias Endo Denies fatigue and Denies palpitations Physical exam (Primary Care) Vital Signs: Last Vital Signs Pulse 64 03/26/25 10:43 BP 132/84 03/26/25 10:43 Pulse Ox 97 03/26/25 10:43 Oxygen Delivery Method Room Air 03/26/25 10:43 BMI result Body Mass Index 27.2 Tobacco/Smoking Status: Tobacco use Status Tobacco use date assessed 03/26/25 03/26/25 10:46 Patient Tobacco Use Status Former Tobacco user 03/26/25 10:46 Tobacco use type Cigarette 03/26/25 10:46 e-Cigarette/Vaping Use Never Used 03/26/25 10:46 PHQ-9: PHQ-9 Score PHQ-9: Total score 0 03/26/25 11:32 Depression Screening Interpretation: Negative Thrive Assessment: Date of Thrive Assessment Date Thrive assessed 03/26/25 03/26/25 10:46 Currently or been in a relationship where the following occur: No concerns reported Const General: no acute distress and alert HENMT Ears: TM's normal bilaterally and EAC's normal Throat: Yes posterior oropharynx normal and Yes tonsils normal (no TP congestion) Neck Neck: Yes no lymphadenopathy and Yes supple Thyroid: Thyroid normal Resp Auscultation: clear to auscultation bilaterally, no rales and no wheezes Cardio Rate: regular rate Rhythm: regular rhythm Heart sounds: no murmurs GI Palpation (GI): Soft to palpation and nontender Auscultation: normal bowel sounds General: Yes no CVA tenderness Back/Spine/Pelvis Back: no CVA tenderness Thoracic/Lumbar Spine: No lumbar spinal tenderness Skin Other: (+) surgical scar over the posteromedial aspect of the right knee, with sutures in place Rashes: no rashes Extrem General: Yes no clubbing, cyanosis or edema Right lower extremity: knee (mild) Details: tenderness and normal ROM; no swelling Results AMB Hemoglobin A1c AMB Hemoglobin A1c 7.6 % Last Edit by CLEVELAND Abreu on 03/26/25 10:58 Results Reviewed Results Reviewed: Laboratory Last Values Hgb A1c (Clinic) 7.6 % (4.0-6.0) H 03/26/25 10:47 Coding Level of Care Code Est Pt Level 4 (16202) Complex EM visit Add On G2211 Diagnoses Pure hypercholesterolemia E78.00 Type 2 diabetes mellitus with hyperglycemia, without long-term current use of insulin E11.65 Diabetes mellitus complication status: with hyperglycemia Diabetes mellitus [facility] insulin use: without [employer] use Diabetes mellitus type: type 2 Benign essential hypertension I10 Right knee pain, unspecified chronicity M25.561 Chronicity: unspecified Benign prostatic hyperplasia with weak urinary stream N40.1; R39.12 Lower urinary tract symptom detail: weak urinary stream Nocturnal leg cramps G47.62 Constipation, unspecified constipation type K59.00 Constipation type: unspecified constipation type Overweight (BMI 25.0-29.9) E66.3 Additional Codes PHQ-9 - 50164 - PHQ-9 Billing: Yes ([id number]) Assessment & Plan Assessment & Plan (1) Pure hypercholesterolemia: Code(s): E78.00 - Pure hypercholesterolemia, unspecified Category: Medical Plan: Patient was not able to get his follow-up labs done prior to his visit today - states that he will try to get them done [facility] Reinforced low cholesterol diet Continue Atorvastatin 20 mg QD Will recheck his labs and fasting lipids again in 4 months for follow up (2) Diabetes mellitus: Code(s): E11.9 - Type 2 diabetes mellitus without complications Category: Medical Qualifiers: Diabetes mellitus complication status: with hyperglycemia Diabetes mellitus [employer] insulin use: without [employer] use Diabetes mellitus type: type 2 Qualified Code(s): E11.65 - Type 2 diabetes mellitus with hyperglycemia Plan: His in-office HgbA1c today went back up to 7.6% (HgbA1c was at 6.6% when last checked in July 2024) - goal is at least <7.0% Reinforced diabetic diet - he was referred to a yield clerk/dietitian for dietary consultation last year, per his request Continue Metformin ER 500 mg 2 tablets (1000 mg) BID and Glimepiride 2 mg QD for now but he is advised that if he cannot get his diabetesback under control over the next few months, then we wiill likely need to start him on additional meds or Tx for his diabetes (3) Benign essential hypertension: Code(s): I10 - Essential (primary) hypertension Category: Medical Plan: Reinforced low sodium diet - goal is systolic BP of 120 mm or less Continue Lisinopril 10 mg QD (4) Right knee pain: Code(s): M25.561 - Pain in right knee Category: Medical Qualifiers: Chronicity: unspecified Qualified Code(s): M25.561 - Pain in right knee Plan: X-rays of the right knee done back in December 2024 revealed (+) mild to moderate patellofemoral compartment, and mild medial compartment osteoarthrosis. No acute bony abnormalities and no joint effusion are seen Have advised patient that he may need to see orthopedics if his knee symptoms persist (5) Benign prostatic hyperplasia with lower urinary tract symptoms: Code(s): N40.1 - Benign prostatic hyperplasia with lower urinary tract symptoms Category: Medical Qualifiers: Lower urinary tract symptom detail: weak urinary stream Qualified Code(s): N40.1 - Benign prostatic hyperplasia with lower urinary tract symptoms; R39.12 - Poor urinary stream Plan: (+) Hx of BPH; his PSA level was still elevated >6.0 when last checked in September 2024 Continue Dutasteride 0.5 mg QD Follow up with urology as scheduled (6) Nocturnal leg cramps: Code(s): G47.62 - Sleep related leg cramps Category: Medical Plan: Continue Mag Ox 400 mg BID (7) Constipation: Code(s): K59.00 - Constipation, unspecified Category: Medical Qualifiers: Constipation type: unspecified constipation type Qualified Code(s): K59.00 - Constipation, unspecified Plan: He is again encouraged on increased oral fluids and dietary fiber intake Continue OTC stool softeners as needed (8) Overweight (BMI 25.0-29.9): Code(s): E66.3 - Overweight Category: Medical Plan: Reinforced diet/exercise as tolerated/lose weight Plan To return as scheduled in July 2025 for his next annual physical examination Orders: Orders AMB Hemoglobin A1c Today Z13.9 - Encounter for screening, unspecified Complete Blood Count Auto Diff 4 Months D64.9 - Anemia, unspecified, Z00.00 - Encounter for general adult medical examination without abnormal findings TSH reflex Free T4 4 Months E78.00 - Pure hypercholesterolemia, unspecified, Z00.00 - Encounter for general adult medical examination without abnormal findings Lipid Panel 4 Months E78.00 - Pure hypercholesterolemia, unspecified, Z00.00 - Encounter for general adult medical examination without abnormal findings Comprehensive Rose. Panel Fast 4 Months E78.00 - Pure hypercholesterolemia, unspecified, Z00.00 - Encounter for general adult medical examination without abnormal findings Hemoglobin A1c 4 Months E11.9 - Type 2 diabetes mellitus without complications, Z00.00 - Encounter for general adult medical examination without abnormal findings Microalbumin, Random (w Creat) 4 Months E11.9 - Type 2 diabetes mellitus without complications, Z00.00 - Encounter for general adult medical examination without abnormal findings UA CC w/rflx Micro + Cult 4 Months R30.0 - Dysuria, Z00.00 - Encounter for general adult medical examination without abnormal findings Vitamin B12 and Folate 4 Months E53.8 - Deficiency of other specified B group vitamins, Z00.00 - Encounter for general adult medical examination without abnormal findings Vitamin D 25-OH Total 4 Months E55.9 - Vitamin D deficiency, unspecified, Z00.00 - Encounter for general adult medical examination without abnormal findings Prostate Specific Antigen 4 Months N40.0 - Benign prostatic hyperplasia without lower urinary tract symptoms, Z00.00 - Encounter for general adult medical examination without abnormal findings
== END 2025-03-26 11:27 | disposition home or self-care (01) ==
LOC: HO.HMCH 10:36
PROVIDERS: PCP Internal Medicine; Visit Provider Internal Medicine
DX: E78.00 Pure hypercholesterolemia, unspecified (principal); E11.65 Type 2 diabetes mellitus with hyperglycemia; I10 Essential (primary) hypertension; M25.561 Pain in right knee; N40.1 Benign prostatic hyperplasia with lower urinary tract symptoms; R39.12 Poor urinary stream; G47.62 Sleep related leg cramps; K59.00 Constipation, unspecified; E66.3 Overweight; Z13.9 Encounter for screening, unspecified

== ENCOUNTER → 2025-03-26 10:34 | Outpatient (BNVA) | payer MEDICARE, SELFPAY | PROVIDERS: PCP Internal Medicine; Visit Provider Internal Medicine | DX: E78.00 Pure hypercholesterolemia, unspecified (principal); E11.65 Type 2 diabetes mellitus with hyperglycemia; I10 Essential (primary) hypertension; M25.561 Pain in right knee; N40.1 Benign prostatic hyperplasia with lower urinary tract symptoms; R39.12 Poor urinary stream; G47.62 Sleep related leg cramps; K59.00 Constipation, unspecified; E66.3 Overweight; Z68.27 Body mass index [BMI] 27.0-27.9, adult; Z71.3 Dietary counseling and surveillance | CPT/HCPCS: 83036; 96127; 99212 ==

== ENCOUNTER 2025-04-06 09:39 | Outpatient (AMB) | payer MEDICARE, SELFPAY ==
--- NOTE | 2025-04-06 09:41 | MHC.OFFVIS ---
Vital Signs 04/06/25 09:47 Height 5 ft 7 in Weight 174 lb BMI 27.2 BP 135/70 Blood Pressure Location Rt brachial Position Sitting Pulse 55 Intake Visit Reasons: s/p Excision subcutaneous mass, posterior rt knee Intake Note: Patient here s/p excision of deep subcutaneous mass right leg under anesthesia on Rt posterior knee. (DX: Schwannoma) Patient c/o: reports incision healing well. Denies pain, oozing. Keeping moist with A&D ointment. WLE: 03-24-2025 Education Counselor Required: No Accompanied by: Self / Same As Patient Allergies No Known Allergies Allergy (Verified 04/06/25 09:47) HPI HPI s/p Excision subcutaneous mass, posterior rt knee: Details: He underwent excision of a subcutaneous mass from the posterior right knee under anesthesia last 03/24/2025. He tolerated procedure well. Currently, he denies complaints. [facility] Medical History Nerve sheath tumor Benign prostatic hyperplasia with lower urinary tract symptoms Degenerative joint disease of right knee Overweight (BMI 25.0-29.9) Diabetes mellitus Pure hypercholesterolemia Benign essential hypertension Congenital absence of left testicle Surgical History Hx of surgical procedure (03/24/25) History of colonoscopy (~06/13/22) Hx of rotator cuff surgery Family History Father Prostate cancer Colon cancer Mother Alzheimer's dementia Social History Housing: House Alcohol intake: current Alcohol intake frequency: a few times a week Alcohol type: beer Patient Tobacco Use Status: Former Tobacco user Tobacco use type: Cigarette e-Cigarette/Vaping Use: Never Used Second Hand Smoke Exposure: Yes service: Yes Current occupational status: retired Cognitive needs: No Hearing needs: Yes Vision needs: Yes Review of Systems Const Denies chills and Denies fever(s) Physical Exam Const General: comfortable and no acute distress Extrem Other: Excision site on the posterior area of the he had leg is well healed, no evidence of infection Assessment & Plan Assessment & Plan (1) Nerve sheath tumor: Code(s): D49.2 - Neoplasm of unspecified behavior of bone, soft tissue, and skin Category: Medical Plan: Status post excision. His path report confirms a schwannoma. His incision is well healed. His sutures were removed. I explained to him the benign nature of the pathology. He can follow up on a p.r.n. basis. Coding Level of Care Code Global (40647) Diagnoses Nerve sheath tumor D49.2
[2025-04-06 09:47] VITALS: BP 135/70; PULSE 55; BMI 27.2
== END 2025-04-06 09:54 | disposition home or self-care (01) ==
LOC: HO.HGS 09:40
PROVIDERS: PCP Internal Medicine; Visit Provider Surgery
DX: D49.2 Neoplasm of unspecified behavior of bone, soft tissue, and skin (principal)
CPT/HCPCS: 99024

== ENCOUNTER → 2025-04-06 09:39 | Outpatient (BNVA) | payer MEDICARE, SELFPAY | PROVIDERS: PCP Internal Medicine; Visit Provider Surgery | DX: D49.2 Neoplasm of unspecified behavior of bone, soft tissue, and skin (principal) | CPT/HCPCS: 99212 ==

== ENCOUNTER 2025-07-08 09:32 | Outpatient (REF) | payer MEDICARE, SELFPAY | END 2025-07-08 09:33 | disposition home or self-care (01) | LOC: HO.LAB 09:32 | PROVIDERS: PCP Internal Medicine | DX: R31.0 Gross hematuria (principal); Z13.89 Encounter for screening for other disorder | CPT/HCPCS: 81003; 87086; 99212 ==

== ENCOUNTER 2025-07-08 09:32 | Outpatient (AMB) | payer MEDICARE, SELFPAY ==
[2025-07-08 09:45] VITALS: BP 110/64; PULSE 69; TEMP 36.9; O2SAT 96; BMI 25.2
--- NOTE | 2025-07-08 09:45 | AM.OFFWIN_ITS ---
Intake Vital Signs 07/08/25 09:45 Height 5 ft 7 in Weight 161 lb BMI 25.2 BP 110/64 Blood Pressure Location Lt brachial Position Sitting Pulse 69 Pulse Source Pulse Oximeter Temp 98.5 F Temp Source Oral Pulse Oximetry (%) 96 Oxygen Delivery Method Room Air Intake Visit Reasons: EP blood in urine for 2 days/ burning Intake Note: pt presents with concern for bloody urine and burning when peeing out clots, with bilateral flank discomfort x2 days Patient Tobacco Use Status: Former Tobacco user Allergies No Known Allergies Allergy (Verified 07/08/25 09:51) Do you need a note to return to daycare/school/sports/work: No HPI HPI Comments History of Present Illness Details History - The patient is a 70 year old male pres enting with hematuria. - The patient reports the onset of hemat uria since Sunday, describing the urine as bright red. - The patient is passing blood clots whi ch cause temporary urinary obstruction and burning pain that resolves once the clot has passed. - The patient denies fever, nausea, vomi ting, or constant pain, but does note some mild back pain. - The patient has experienced this sympt om before and was advised by the primary doctor to see someone if it lasted more than one or two days. - Past medical history is significant fo r a prostate scraping procedure. - The patient denies any history of smok ing or a family history of bladder cancer. - She denies fever, chills, chest pain, SOB, flank pain, discharge, rashes or lesions. Physical Exam General: Cooperative, healthy appearing, comfortable, no acute distress and well developed Cardiac: Normal S1 and S2. RRR, no M/R/G noted. Respiratory: Normal respiratory effort and able to speak in complete sentences. Clear to auscultation bilaterally. No w/r/r noted. Skin: No rashes or lesions noted. GI: Normal inspection. Normal BS noted. Soft, non-tender, non-distended. No TTP of all 4 quadrants. No guarding or rebound tenderness noted. Back: Negative CVA bilaterally. Patient was informed and verbally consented to the use of an ambient scribe for clinic note documentation during this visit. [facility] Medical History Nerve sheath tumor Benign prostatic hyperplasia with lower urinary tract symptoms Degenerative joint disease of right knee Overweight (BMI 25.0-29.9) Diabetes mellitus Pure hypercholesterolemia Benign essential hypertension Congenital absence of left testicle Surgical History Hx of surgical procedure (03/24/25) History of colonoscopy (~06/13/22) Hx of rotator cuff surgery Family History Father Prostate cancer Colon cancer Mother Alzheimer's dementia Social History Housing: House Alcohol intake: current Alcohol intake frequency: a few times a week Alcohol type: beer Patient Tobacco Use Status: Former Tobacco user Tobacco use type: Cigarette e-Cigarette/Vaping Use: Never Used Second Hand Smoke Exposure: Yes service: Yes Current occupational status: retired Cognitive needs: No Hearing needs: Yes Vision needs: Yes Review of Systems Const All systems reviewed & are unremarkable except as noted in HPI and below Physical Exam Vital Signs: Last Vital Signs Temp 98.5 F 07/08/25 09:45 Pulse 69 07/08/25 09:45 BP 110/64 07/08/25 09:45 Pulse Ox 96 07/08/25 09:45 Oxygen Delivery Method Room Air 07/08/25 09:45 BMI result Body Mass Index 25.2 Results AMB Urinalysis, Automated UA Leukoctes 500 Tigist/uL Last Edit by Sharonda Hawk CMA on 07/08/25 10:15 3+ Sharonda Hawk 07/08/25 10:15 UA Nitrite Positive Last Edit by Sharonda Hawk CMA on 07/08/25 10:15 UA Urobilinogen 4 mg/dL Last Edit by Sharonda Hawk CMA on 07/08/25 10:15 2+ Sharonda Hawk 07/08/25 10:15 UA Protein 100 mg/dL Last Edit by Sharonda Hawk CMA on 07/08/25 10:15 2+ Sharonda Hawk 07/08/25 10:15 UA pH 5.5 Last Edit by Sharonda Hawk CMA on 07/08/25 10:15 UA Blood 200 Santiago/uL Last Edit by Sharonda Hawk CMA on 07/08/25 10:15 3+ Sharonda Hawk 07/08/25 10:15 UA Specific [place] 1.020 Last Edit by Sharonda Hawk CMA on 07/08/25 10: 15 UA Ketone Positive Last Edit by Sharonda Hawk CMA on 07/08/25 10:15 15 Sharonda Hawk 07/08/25 10:15 UA Bilirubin 2 mg/dL Last Edit by Sharonda Hawk CMA on 07/08/25 10:15 2+ Sharonda Hawk 07/08/25 10:15 UA Glucose 0 mg/dL Last Edit by Sharonda Hawk CMA on 07/08/25 10:15 Results Reviewed Results Reviewed: Laboratory Last Values Urine pH (Auto) 5.5 07/08/25 10:12 Specific [place] (Auto) 1.020 07/08/25 10:12 Urine Protein (Auto) 100 mg/dL H* 07/08/25 10:12 Glucose (UA)(Auto) 0 mg/dL 07/08/25 10:12 Urine Ketones (Auto) Positive A* 07/08/25 10:12 Urine Blood (Auto) 200 Santiago/uL H* 07/08/25 10:12 Urine Nitrite (Auto) Positive A* 07/08/25 10:12 Urine Bilirubin (Auto) 2 mg/dL H* 07/08/25 10:12 Urine Urobilinogen (Auto) 4 mg/dL H* 07/08/25 10:12 Leukocyte Esterase (Auto) 500 Tigist/uL H* 07/08/25 10:12 Assessment & Plan Assessment & Plan (1) Hematuria: Code(s): R31.9 - Hematuria, unspecified Qualifiers: Hematuria type: gross Qualified Code(s): R31.0 - Gross hematuria Plan Most likely UTI vs stone UA 3+leuko, +nit, 2+ uro, 2+pro, 3+blood, 1+ket, 2+cody Plan - The patient will be treated for a presumed urinary tract infection with a 7- day course of antibiotics. - A urine sample will be sent for culture to guide antibiotic therapy if necessary. - A referral will be made to Urology for further evaluation of the gross hematuria, and the patient was advised to call if they do not receive contact by Sunday. - The patient was advised to increase fluid intake, including water and cranberry juice. - The patient was instructed to monitor for worsening symptoms such as increased bleeding, fever, severe pain, nausea, or vomiting. Orders: Orders AMB Urinalysis Automated Today Z13.9 - Encounter for screening, unspecified Urine Culture Today N39.0 - Urinary tract infection, site not specified Referrals Urology Referral R31.0 - Gross hematuria Medications: New cefuroxime axetil 500 mg PO Q12H 14 tabs 0RF 7 days Coding Level of Care Code Est Pt Level 3 (69000) Diagnoses Gross hematuria R31.0 Hematuria type: gross
== END 2025-07-08 10:21 | disposition home or self-care (01) ==
PROVIDERS: PCP Internal Medicine; Visit Provider Physician Assistant Medical
DX: Z13.9 Encounter for screening, unspecified (principal); R31.0 Gross hematuria